=== PATIENT | male | born 1995 | race Caucasian/White ===

== ENCOUNTER 2018-04-30 10:30 | Emergency (ER) | payer SELFPAY ==
[2016-09-15 08:38] VITALS: Wt 81.6 kg
[2018-04-30 10:32] VITALS: BP 133/82
[2018-04-30 10:48] LABS: PLATELET COUNT, AUTOMATED 250 K/uL (150-450)
--- NOTE | 2018-04-30 11:01 | ER Report ---
History and Physical Time Seen By MD: 10:53 Hx. of Stated Complaint: PT FOUND WALKING AROUND NAKED TALKING TO TREES. PT ARRIVED IN HANDCUFFS. HPI/ROS CHIEF COMPLAINT: Psychosis HISTORY OF PRESENT ILLNESS: This is a 22-year-old male who presents to the emergency department via [facility] Department for psychosis. Apparently the patient was naked wandering around and talking to trees not violent not threatening and not suicidal. The patient states he is spreading upward of God. When I pushed the shoe and ask about any illicit drugs, he states that he has taken drugs in the past however he is not indicating that he is taken drugs recently. Patient is cooperative, smiling and interacting well. The patient was emergency detained for public nudity, talking to trees and talking to people that weren't there. They were concerned that he had a medical problem. Patient does arrive oriented to time, place, city, year. Denies fevers, chills, nausea vomiting or diarrhea. No headaches or blurred vision. No chest pain or shortness of breath. REVIEW OF SYSTEMS: Constitutional: No fever, no chills. Eyes: No discharge. ENT: No sore throat. Cardiovascular: No chest pain, no palpitations. Respiratory: No cough, no shortness of breath. Gastrointestinal: No abdominal pain, no vomiting. Genitourinary: No hematuria. Musculoskeletal: No back pain. Skin: No rashes. Neurological: No headache. Psychiatric: As above. Allergies: Coded Allergies: No Known Drug Allergies (Unverified , 04/30/18) Home Meds Discontinued Reported Medications Multivits,Th W-Fe,Other Min (THERA-M) 1 Each Tablet, 1 EACH PO QHS 09/28/16 Discontinued Scripts Oxycodone Hcl/Acetaminophen (PERCOCET 5-325 MG TABLET) 1 Each Tablet, 1 EACH PO Q4-6H Y for PAIN, #20 Prov:FADY AQUINO DO 04/27/17 Past Medical/Surgical History The patient has a past medical and surgical history of using illicit drugs mushrooms, marijuana, cocaine, cocaine gummy bears, depression, suicide attempt , questionable schizophrenia. Unable To Obtain Past Medical: Unable to Obtain/Update Reviewed Nurses Notes: Yes Hx Smoking: No Smoking Status: Never Smoker Exposure to Second Hand Smoke?: No Hx Substance Use Disorder: Yes (mushrooms/marijuana/acid/pills) Hx Alcohol Use: Yes Constitutional Vital Sign - Last 24 Hours 04/30/18 10:32 Temp 99.1 Pulse 89 Resp 16 B/P (MAP) 133/82 Pulse Ox 95 O2 Delivery Room Air Intake and Output 04/30/18 04/30/18 05/01/18 15:00 23:00 07:00 Intake Total 1000 ml Balance 1000 ml Physical Exam General Appearance: The patient is alert, has no immediate need for airway protection and no signs of toxicity. Eyes: Pupils equal and round no pallor or injection. ENT, Mouth: Mucous membranes are moist. Respiratory: There are no retractions, lungs are clear to auscultation. Cardiovascular: Regular rate and rhythm. Gastrointestinal: Abdomen is soft and non tender, no masses, bowel sounds normal. Neurological: Alert and oriented 4. Moving all extremities. Following all commands. No focal neuro deficits. Skin: Warm and dry, no rashes. Musculoskeletal: Neck is supple non tender. Extremities are nontender, nonswollen and have full range of motion. Psych: The patient is making good eye contact, smiling and interacting well when I ask him if he understands why he is here, he proceeds to tell me that were all here, that were part of the earth the universe and God. The patient denies self-harm or homicidal thoughts. But the patient also had a matter of seconds while talking about growing up in [place] and then has some tangential thoughts and began speaking about God and how he is spraying the word of God and trying to tell everyone about God. DIFFERENTIAL DIAGNOSIS: After history and physical exam differential diagnosis was considered for psychosis, schizophrenia, depression, anxiety, bipolar. Medical Decision Making Data Points Result Diagram: 04/30/18 1034 04/30/18 1034 Laboratory Hematology Test 04/30/18 10:34 04/30/18 11:45 Red Blood Count 5.04 M/uL (4.00-5.60) Mean Corpuscular Volume 88.9 fL (80.0-96.0) Mean Corpuscular Hemoglobin 31.4 pg (26.0-33.0) Mean Corpuscular Hemoglobin Concent 35.3 g/dL (32.0-36.0) Red Cell Distribution Width 13.2 % (11.5-14.5) Mean Platelet Volume 8.7 fL (7.2-11.1) Neutrophils (%) (Auto) 75.0 % (39.4-72.5) Lymphocytes (%) (Auto) 17.1 % (17.6-49.6) Monocytes (%) (Auto) 7.3 % (4.1-12.4) Eosinophils (%) (Auto) 0.3 % (0.4-6.7) Basophils (%) (Auto) 0.3 % (0.3-1.4) Nucleated RBC Relative Count (auto) 0.1 /100WBC Neutrophils # (Auto) 6.5 K/uL (2.0-7.4) Lymphocytes # (Auto) 1.5 K/uL (1.3-3.6) Monocytes # (Auto) 0.6 K/uL (0.3-1.0) Eosinophils # (Auto) 0.0 K/uL (0.0-0.5) Basophils # (Auto) 0.0 K/uL (0.0-0.1) Nucleated RBC Absolute Count (auto) 0.01 K/uL Sodium Level 140 mmol/L (137-145) Potassium Level 3.7 mmol/L (3.5-5.0) Chloride Level 104 mmol/L (98-107) Carbon Dioxide Level 22 mmol/L (22-30) Blood Urea Nitrogen 17 mg/dl (9-21) Creatinine 0.90 mg/dl (0.66-1.25) Glomerular Filtration Rate Calc > 60.0 Random Glucose 104 mg/dl (75-110) Calcium Level 9.2 mg/dl (8.4-10.2) Magnesium Level 2.1 mg/dl (1.7-2.2) Total Bilirubin 0.7 mg/dl (0.2-1.3) Aspartate Amino Transf (AST/SGOT) 28 U/L (0-35) Alanine Aminotransferase (ALT/SGPT) 23 U/L (0-56) Alkaline Phosphatase 64 U/L (0-126) Total Protein 7.9 g/dl (6.3-8.2) Albumin 4.9 g/dl (3.5-5.0) Thyroid Stimulating Hormone (TSH) 2.05 uIU/ml (0.46-4.68) Salicylates Level < 10 mg/L Salicylate Last Dose Date unk Acetaminophen Level < 10 ug/ml Serum Alcohol < 10 mg/dl Urine Color Yellow Urine Clarity Clear Urine pH 6.0 pH (4.8-9.5) Urine Specific [place] 1.014 Urine Protein Negative mg/dL (NEGATIVE) Urine Glucose (UA) Negative mg/dL (NEGATIVE) Urine Ketones Negative mg/dL (NEGATIVE) Urine Blood Negative (NEGATIVE) Urine Nitrite Negative (NEGATIVE) Urine Bilirubin Negative (NEGATIVE) Urine Urobilinogen Negative mg/dL (0.2-1.9) Urine Leukocyte Esterase Negative (NEGATIVE) Urine RBC <1 /HPF (0-2/HPF) Urine WBC <1 /HPF (0-5/HPF) Urine Squamous Epithelial Cells None /LPF (</=FEW) Urine Bacteria Negative /HPF (NONE-FEW) Urine Mucus None /HPF (NONE-FEW) Urine Opiates Screen Negative Urine Barbiturates Screen Negative Ur Tricyclic Antidepressants Screen Negative Urine Phencyclidine Screen Negative Urine Amphetamines Screen Negative Urine Benzodiazepines Screen Negative Urine Cocaine Screen Negative Urine Cannabinoids Screen Negative Chemistry Test 04/30/18 10:34 04/30/18 11:45 White Blood Count 8.6 k/uL (4.5-11.0) Red Blood Count 5.04 M/uL (4.00-5.60) Hemoglobin 15.8 g/dL (14.0-18.0) Hematocrit 44.8 % (42.0-52.0) Mean Corpuscular Volume 88.9 fL (80.0-96.0) Mean Corpuscular Hemoglobin 31.4 pg (26.0-33.0) Mean Corpuscular Hemoglobin Concent 35.3 g/dL (32.0-36.0) Red Cell Distribution Width 13.2 % (11.5-14.5) Platelet Count 250 K/uL (150-450) Mean Platelet Volume 8.7 fL (7.2-11.1) Neutrophils (%) (Auto) 75.0 % (39.4-72.5) Lymphocytes (%) (Auto) 17.1 % (17.6-49.6) Monocytes (%) (Auto) 7.3 % (4.1-12.4) Eosinophils (%) (Auto) 0.3 % (0.4-6.7) Basophils (%) (Auto) 0.3 % (0.3-1.4) Nucleated RBC Relative Count (auto) 0.1 /100WBC Neutrophils # (Auto) 6.5 K/uL (2.0-7.4) Lymphocytes # (Auto) 1.5 K/uL (1.3-3.6) Monocytes # (Auto) 0.6 K/uL (0.3-1.0) Eosinophils # (Auto) 0.0 K/uL (0.0-0.5) Basophils # (Auto) 0.0 K/uL (0.0-0.1) Nucleated RBC Absolute Count (auto) 0.01 K/uL Glomerular Filtration Rate Calc > 60.0 Calcium Level 9.2 mg/dl (8.4-10.2) Magnesium Level 2.1 mg/dl (1.7-2.2) Total Bilirubin 0.7 mg/dl (0.2-1.3) Aspartate Amino Transf (AST/SGOT) 28 U/L (0-35) Alanine Aminotransferase (ALT/SGPT) 23 U/L (0-56) Alkaline Phosphatase 64 U/L (0-126) Total Protein 7.9 g/dl (6.3-8.2) Albumin 4.9 g/dl (3.5-5.0) Thyroid Stimulating Hormone (TSH) 2.05 uIU/ml (0.46-4.68) Salicylates Level < 10 mg/L Salicylate Last Dose Date unk Acetaminophen Level < 10 ug/ml Serum Alcohol < 10 mg/dl Urine Color Yellow Urine Clarity Clear Urine pH 6.0 pH (4.8-9.5) Urine Specific [place] 1.014 Urine Protein Negative mg/dL (NEGATIVE) Urine Glucose (UA) Negative mg/dL (NEGATIVE) Urine Ketones Negative mg/dL (NEGATIVE) Urine Blood Negative (NEGATIVE) Urine Nitrite Negative (NEGATIVE) Urine Bilirubin Negative (NEGATIVE) Urine Urobilinogen Negative mg/dL (0.2-1.9) Urine Leukocyte Esterase Negative (NEGATIVE) Urine RBC <1 /HPF (0-2/HPF) Urine WBC <1 /HPF (0-5/HPF) Urine Squamous Epithelial Cells None /LPF (</=FEW) Urine Bacteria Negative /HPF (NONE-FEW) Urine Mucus None /HPF (NONE-FEW) Urine Opiates Screen Negative Urine Barbiturates Screen Negative Ur Tricyclic Antidepressants Screen Negative Urine Phencyclidine Screen Negative Urine Amphetamines Screen Negative Urine Benzodiazepines Screen Negative Urine Cocaine Screen Negative Urine Cannabinoids Screen Negative Toxicology Test 04/30/18 10:34 04/30/18 11:45 Salicylates Level < 10 mg/L Salicylate Last Dose Date unk Acetaminophen Level < 10 ug/ml Serum Alcohol < 10 mg/dl Urine Opiates Screen Negative Urine Barbiturates Screen Negative Ur Tricyclic Antidepressants Screen Negative Urine Phencyclidine Screen Negative Urine Amphetamines Screen Negative Urine Benzodiazepines Screen Negative Urine Cocaine Screen Negative Urine Cannabinoids Screen Negative Urinalysis Test 04/30/18 11:45 Urine Color Yellow Urine Clarity Clear Urine pH 6.0 pH (4.8-9.5) Urine Specific [place] 1.014 Urine Protein Negative mg/dL (NEGATIVE) Urine Glucose (UA) Negative mg/dL (NEGATIVE) Urine Ketones Negative mg/dL (NEGATIVE) Urine Blood Negative (NEGATIVE) Urine Nitrite Negative (NEGATIVE) Urine Bilirubin Negative (NEGATIVE) Urine Urobilinogen Negative mg/dL (0.2-1.9) Urine Leukocyte Esterase Negative (NEGATIVE) Urine RBC <1 /HPF (0-2/HPF) Urine WBC <1 /HPF (0-5/HPF) Urine Squamous Epithelial Cells None /LPF (</=FEW) Urine Bacteria Negative /HPF (NONE-FEW) Urine Mucus None /HPF (NONE-FEW) ED Course/Re-evaluation Clinical Indication for ER IV: IV Access ED Course The patient was admitted to room. A history and physical were obtained. Differential diagnoses were considered. An IV was started. A CBC, CMP, tox screen and psych panel were obtained. Lab studies unremarkable. Negative tox screen. I did uphold the detainment. The patient's case was discussed with Dr. Finn and he is accepted the patient into behavioral health unit for psychosis and hallucinations. The patient will be admitted. Patient remains cooperative however he did attempt to elope at one point during his stay in the emergency department he was escorted back by PD. 04/30/2018 12:22:19 pm I did speak with Dr. Finn regarding the patient's case , I ultimately decided to hold the patient's detainment as his blood work and urine are negative for marijuana or any other illicit drugs. My concern would be that the patient will be discharged from the hospital and without a formal evaluation from a psychologist he would walk in front of oncoming traffic or some other unintentional accident would happen as God is telling them what to do. Decision to Disposition Date: Apr 30, 2018 Decision to Disposition Time: 12:22 Depart Departure Latest Vital Signs Vital Signs Date Time Temp Pulse Resp B/P (MAP) Pulse Ox O2 Delivery O2 Flow Rate FiO2 04/30/18 10:32 99.1 89 16 133/82 95 Room Air Impression: Primary Impression: Hallucinations Additional Impression: Psychosis Condition: Improved Disposition: XFER TO [facility] New Scripts No Active Prescriptions or Reported Meds Problem Qualifiers Additional Impression: Psychosis Psychosis type: unspecified psychosis type Qualified Codes: F29 - Unspecified psychosis not due to a substance or known physiological condition POLI BISWAS PROGRAM ADVISOR-BC Apr 30, 2018 11:01
--- NOTE | 2018-04-30 11:12 | EKG ---
FACILITY: [facility] PATIENT NAME: NIMA ADAIR : [id number] MR: [id number] V: [id number] EXAM DATE: ORDERING PHYSICIAN: SERAFIN MCDONALD TECHNOLOGIST: SHAR Test Reason : Blood Pressure : / mmHG Vent. Rate : 070 BPM Atrial Rate : 070 BPM P-R Int : 152 ms QRS Dur : 096 ms QT Int : 392 ms P-R-T Axes : 061 037 017 degrees QTc Int : 423 ms Normal sinus rhythm with sinus arrhythmia Normal ECG When compared with ECG of 14-SEP-2016 17:57, No significant change was found Confirmed by Isai Campo ([id number]) on 05/01/2018 12:08:29 AM Referred By: RYAN Confirmed By:Isai Curtis
[2018-04-30] MEDS ORDERED: NS(*) 0.9% 1000 ML BAG 1,000 ML IV ONE (11:45)
--- NOTE | 2018-04-30 12:43 | BHS - Psychiatric Evaluation ---
ER - Title 25 MHE Evaluation Title 25 Evaluation Patient Detained By: Other (Nurse Practitioner) Referral Source: Law Enforcement Date Patient Detained: Apr 30, 2018 Time Patient Detained: 12:33 Date Correction Expires: May 03, 2018 Time Correction Expires: 12:33 Legal Status: Police Hold: Yes Legal Status: Residence: County Resident ([facility] State Resident ([place]) Assessment Data Provided By: Patient, Law Enforcement HPI/ROS: This is a 22-year-old male presents to the emergency department in the custody of the Police Department who was detained for his safety. Patient apparently was wandering around they were fluids, reviewed and talking to treat and people apparently were not there. Admit due to SI or Attempt: No Suicide Plan: No Plan Alcohol or Drugs Involved: No Mental Status Exam General Appearance: Casual, No Well Groomed, No Good Eye Contact, Cooperative, Polite, Good Interaction, Unkept, No Tearful, No Psychomotor Agitation, No Psychomotor Retardation, No Bizarre Mannerisms, No Tics, No Other Speech: Clear, No Spontaneous, No Normal Rate, No Normal Rhythm, Normal Volume , No Normal Tone, No Delayed, No Slurred, No Garbled, No Rambling, No Inappropriate, No Other Mood: Euthymic Affect: No Full and Appropriate, Calm, No Sad, No Neutral, No Flat, No Withdrawn, No Tearful, No Anxious, No Agitated, No Other Thought Process: No Organized, No Logical, No Goal Directed, Loose Associations , Flight of Ideas, No Other Thought Content: No Suicidal Ideation, No Homicidal Ideation, No Delusions, No Auditory Halllucinations, No Visual Hallucinations, No Thought Broadcasting, No Ideas of Reference, No Obsessions, No Compulsions, No Other Sensorium: No Clear, No Other Cognition: Alert & Oriented-Place, Alert & Oriented-Time, Other (Aware he is in the ED but unaware why.) Memory: Recent, Remote Insight Judgment: Fair Sleep: Normal Hallucinations: No Denies, Auditory, No Visual, No Command auditory, No Tactile , No Gustatory, No Olfactory Delusions: No Denies, No Persecutory, Grandiose, No Mind Control, No Somatic, No Hypochondriacal, No Paranoia, Magical, Religous, No Ideas of reference, No Sexual Current Risk & History Current Dangerous Risk Assessm: Ubable to Care for Self Past Dangerous Risk Assessm: Other Previous Suicide Attempt: Past - High Lethality Number of Attempts/Description unsure Previous Psychiatric Illness: Yes Previous Psychiatric Treatment: Yes Previous Treatment Description therapy Risk Assessment & Disposition Evaluated Risk Assessment: As the patient is exhibiting buddhist and grandiose thoughts and ideas about listening to daughter and spreading toward God I did uphold the patient's detainment from the police department, as I was concerned that as he was wandering around naked that was the potential for an unintentional track injury such as walking in front of cars or slipping and falling exposure to the elements. Impression: Primary Impression: Hallucinations Additional Impression: Psychosis Meets Mental Illness Req.: Yes Meets Dangerousness Req.: Yes Emergency Correction to be: Upheld Date of Decision: Apr 30, 2018 Time of Decision: 12:42 Patient is Medically Stable at: Yes Disposition: [facility] Problem Qualifiers Additional Impression: Psychosis Psychosis type: unspecified psychosis type Qualified Codes: F29 - Unspecified psychosis not due to a substance or known physiological condition POLI BISWAS SHIPPING ROOM SUPERVISOR-BC Apr 30, 2018 12:43
== END 2018-04-30 12:50 ==
LOC: ER 10:34
DX: R44.1 Visual hallucinations (principal); F16.11 Hallucinogen abuse, in remission; F14.11 Cocaine abuse, in remission
CPT/HCPCS: 80305; 80320; 80329; 81001; 83735; 84443; 85025; 93005; 96360; 99285; J7030; 82040; 82247; 82310; 82374; 82435; 82565; 82947; 84075; 84132; 84155; 84295; 84450; 84460; 84520

== ENCOUNTER 2018-04-30 12:32 | Inpatient (IN) | payer OTHER ==
[2016-09-15 08:38] VITALS: Ht 172.7 cm; Wt 81.6 kg
[~2018-04-30] VITALS: Ht 172.7 cm; Wt 81.6 kg
[2018-04-30] MEDS ORDERED: MAG HYD/AL HYD/SIMETH 30ML UDC PO PRN (13:55)
[2018-04-30 16:12] VITALS: BP 132/81
[2018-04-30 17:25] VITALS: BP 116/75
--- NOTE | 2018-04-30 18:02 | BHS - Psychiatric Evaluation ---
Title 25 Evaluation Hearing Report: 110 Date of Report: May 06, 2018 Examiner: Leatha Combs M.S., L.P.C. and Dr. Prashanth Finn MD Patient Detained By: Law Enforcement 24hr Mental Health Eval By: ABRTOLOME Vang Date Patient Detained: Apr 30, 2018 Time Patient Detained: 10:19 Date Alf Expires: May 13, 2018 Time Alf Expires: 10:19 Legal Status: Police Hold: No Legal Status: Relationship: Single Legal Status: Residence: [facility] Resident, State Resident Referral Source: Professional: Law Enforcement - Brazing Furnace Operator Assessment Data Provided By: Patient, Law Enforcement ([phone] from bank officer ), Other Source ([facility]essionals and Patient's Electronic medical record (EMR )) Chief Complaint: Patient is detained by Law Enforcement because his concerning behavior of walking in the downtown area naked and talking to trees and a spider himself put him at risk. Patient is psychotic and in need of stabilization. he has orthodox delusions that God has told him to gauge out his eye, and he requires chemical restraint here at [facility] to not continue efforts to hurt his eye. He has consistently removed his clothing when asked to stay clothed here at the hospital. He says he is naked because he is not ashamed and makes Biblical references to forbidden fruit in the [place] of [place], and shame associated with eating the fruit and gaining knowledge. Patient did not follow up with outpatient treatment after his last admission, and his family is fearful of his detachment from reality, and the potential dangers that relate. Patient cannot return home as his family members do not feel they can keep him safe. HPI/ROS: [facility] [employer], Harjinder Tamez, "As the patient is exhibiting orthodox and grandiose thoughts and ideas God I did uphold the patient's detainment from the police department, as I was concerned that as he was wandering around naked that was the potential for an unintentional traffic injury such as walking in front of cars or slipping and falling exposure to the elements." Diagnosis: Preliminary diagnosis: Schizophreniform versus bipolar disorder and versus underlying development of delusional disorder. Rule out any undetected substances. Last admission, patient admitted to taking mushrooms. Risk Formulation: The patient "evidences behavior manifested by recent acts or omissions that, due to mental illness, the patient is unable to satisfy basic needs for nourishment, essential medical care, senior living, or safety so that a substantial probability exists that , serious physical injury, serious physical debilitation, serious mental debilitation, destabilization from lack of or refusal to take prescribed psychotropic medications for a diagnosed condition or serious physical disease will imminently ensue, unless the individual receives prompt and adequate treatment for this mental illness" as evidenced by : Late last year patient was found to be barefoot in subzero weather, and appeared delusional. He was talking about spreading God's word. He reports that he took mushrooms and had an "enlightening trip", which gave him an understanding of what God had in store for him. Currently, patient again has some delusions that relate to being naked and eating fruit, and not being ashamed of his nakedness. Patient does not report engaging in current outpatient mental health support at all, and it is clear the above delusions patient experiences lead to gross neglect of his physical safety and senior living, and this could lead to serious physical injury or . Recommendations of S Team: That the patient be committed to the [facility] for further evaluation and stabilization. If placement becomes available at a less restrictive facility ([place] [facility], rehab facility, supervised living, etc) prior to admission to the [facility] this would be more therapeutic for the patient. Should this happen, we ask that a directed outpatient commitment or convalescent leave be considered upon admission to alternate placement. [facility] will follow patient during admission and after discharge. Patient should be directed to follow up with [facility] after discharge from [facility] or alternate placement. 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 Current Dangerous Risk Assess: Current Suicide Ideation (Denies this hospitalization. On a previous hospitalization patient expressed suicidal ideation with a gun to his throat because, he said, God told him to kill himself.) Current Risk Summary: Patient's risk is rated as severe because he has lost touch with reality. Patient again has some delusions that relate to being naked and eating fruit, and not being ashamed of his nakedness, even in the highly public downtown area. Patient does not report engaging in current outpatient mental health support at all, and it is clear the above delusions patient experiences lead to gross neglect of his physical safety and senior living, and this could lead to serious physical injury or . Patient cannot return home as his family members do not feel they can keep him safe. Even in a locked psychiatric unit, patient attempting to gouge out his eye and requiring chemical restraint. Past Dangerous Risk Assess: Self-Injurious Behaviors (Patient reports ingestion of mushrooms in the past, and subsequent walking barefoot in subzero weather. This hospitalization, patient attempting to pull out his eye.), Other (Patient had some commands from God to kill himself during a recent hospitalization at [facility].) [facility] - Exam Physical Exam Vital Signs Vital Signs 05/06/18 06:17 Temp 97.5 Pulse 47 Resp 15 B/P (MAP) 96/69 (78) Pulse Ox 96 O2 Delivery Room Air Vital Signs 04/30/18 16:12 Temp 98.4 Pulse 79 B/P (MAP) 132/81 (98) Pulse Ox 96 O2 Delivery Room Air Mental Status Exam General Appearance: Well Groomed, Other (Does not want to stay clothed, resorts to nakedness, unless told to put on a sheet, which he will do only briefly.) Speech: Clear Mood: Dysthmic/Depressed, Euthymic Affect: Calm Thought Content: Delusions, Ideas of Reference (Believes God gives him tests and commands, such as walking in subzero weather without shoes.) Cognition: Alert & Oriented-Person Intelligence: Average Insight Judgment: Poor Care & Behavior on Unit Treatment Team Participation: Patient is often congenial. He chooses to disrobe his clothing throughout this hospitalization. Current Medications: Upland and Risperidone Pt. Taking Meds Voluntarily: No Medication Aherence: Infrequently, patient refuses to take his medication. Behavior on Unit: Patient is consistent in his becoming unclosed against advisement to remain clothed. Another patient said this patient made verbal and inappropriate touch advances. Changes Since 109 Hearing: Patient has required chemical restraint because he is trying to hurt/remove his eye. Code Yellow: Patient required code yellow intervention because he was trying to harm himself, especially his eye. Code Yellow Description(s): Bedside wrist restraints used to prevent patient from completing self-harming behavior. Title 25 History Psychiatric History: Patient reports that he saw a therapist his senior year in 2013 while he was on probation. This was Esperanza Garnett, and he reports that he saw Maddy Hernandez a couple of times too. Denies ever being evaluated by a psychiatrist or psychiatric nurse practitioner. He denies a history of suicide attempts prior to what occurred prior to the September 09, 2016 admission. He does report a history of sometimes feeling stressed, at which time he feels hopeless. He says that this lasts for approximately a week. Family Psychiatric Hx: Patient does have a family history of Schizophrenic illness. He believes that his second cousin has Bipolar disorder, and he reports that a great uncle has Schizophrenia. He denies known substance abuse in the family other than cigarette smoking, but his last admission acknowledged using psychedelic mushrooms recreationally. Social History: Patient is from [place], [place]. He is single, never , no children. He lives with his grandmother in [place], reports that he got kicked out of his parents' house at age 19. Parents do live in [place]. They are , and he does report a good relationship with them. He graduated [employer] in 2013, reports that he took a year off and then attended [employer] for 1 year, however, he did not like it. Last year he was working at [employer], about 28 hours a week. He does report that he has 2 brothers, age 17 years and 6 years. Says he would like to go back to school and study psychology, "so I can be a counselor." Previous Detentions: Patient detained in August 2016 for similar psychosis. Prior Hospitalizations: Previous [facility] hospitalizations when patient was psychotic: 09-14-2016 to 09-28-2016 09-09-2016 to 09-13-2016 Drug & Alcohol Use: He does report that he used mushrooms in an effort to expand his consciousness last week. He reports that last use of mushrooms was 1 year prior. He does report a history of using other drugs in the past to "expand his consciousness, " such as acid, MDMA, tramadol, spice, Ambien, oxycodone, Benadryl one time, cocaine one time. He has huffed one time doing air dusters. He does have a history of marijuana use. He reports that he had been weaning himself off "using only on the full deleon, and that after the last full deleon," he reports he quit marijuana. On his previous admission to [facility] in August 2016, patient said he was using cannabis. Patient reports current tobacco use.. Age of Onset/Duration: At 18 patient explored admission with his mother to the [facility]. He was denied admission because although he was soon to turn 19, it was predicted his needs could not be served within the milieu of the [facility] without mixing risk levels inappropriately. Current Living Situation: Patient has lived with his grandmother. His grandmother and parents have been expressing an inability to keep the patient unsafe in their homes. Legal History: Patient reports that he was given an opportunity to participate in the [facility] Juvenile Diversion program for possession of marijuana his senior year in high school, and also he pulled a fire alarm at school on a dare, and received probation. He reports that he completed the [employer] program. Relevant Medical History: Patient denies any chronic medical problems, denies a history of surgery. Relevant Medications: Medications are Upland and [place] [facility] Identity & Impact: Patient has many orthodox preoccupation which cause him to be at risk, such as walking naked because he believes he has eaten the fruit of knowledge, he says. Patient Strengths: Patient is very polite and pleasant to talk with. Current Medical Data: Patient denies any chronic medical problems, denies a history of surgery. Relevant Medications: Most recently, medications were Upland and Risperidone. Patient had not been taking his medications nearly immediately after his last hospitalization. LEATHA COMBS [facility] Apr 30, 2018 17:37
[2018-04-30] MEDS: LITHIUM CARBONATE 300 MG CAP PO SCH ×2 (21:00→22:29)
[2018-04-30] MEDS: diphenhydrAMINE 25 MG CAP PO SCH ×2 (21:00→22:30)
[2018-04-30] MEDS: risperiDONE 1 MG TAB PO SCH ×2 (21:00→22:30)
[2018-05-01 06:00] VITALS: BP 108/71
[2018-05-01 08:13] VITALS: BP 104/61
[2018-05-01] MEDS: OMEGA-3 500 MG CAP PO SCH (09:00)
[2018-05-01] MEDS: FOLIC ACID 1 MG TAB PO SCH (09:00)
[2018-05-01] MEDS: CHOLECALCIFEROL 1000 UNIT TAB PO SCH (09:00)
[2018-05-01] MEDS: MULTIVITAMINS TAB PO SCH (09:00)
[2018-05-01] MEDS ORDERED: MULTIVITAMINS TAB PO SCH (09:00)
[2018-05-01] MEDS: THIAMINE HCL 100 MG TAB PO SCH (09:00)
[2018-05-01 12:38] VITALS: BP 112/63
[2018-05-01 17:00] VITALS: BP 129/83
[2018-05-01] MEDS: diphenhydrAMINE 25 MG CAP PO SCH (17:00)
[2018-05-01] MEDS: LITHIUM CARBONATE 300 MG CAP PO SCH (17:00)
[2018-05-01] MEDS: risperiDONE 1 MG TAB PO SCH (17:00)
--- NOTE | 2018-05-01 17:40 | HISTORY AND PHYSICAL ---
DATE OF ADMISSION: April 30, 2018 Patient was seen at approximately 1000 hours on the a.m. of 01 May 2018 for note concerning this dictation. PRESENTING PROBLEM/CHIEF COMPLAINT Psychotic delusional behavior. HISTORY OF PRESENT ILLNESS This is a 22-year-old male who was last on the unit in August 2016 to September 2016 under somewhat similar circumstances. Patient discharged at that time on Risperdal and lithium in hopes that he would recover from what appeared to be a substance-induced psychotic disorder. Patient had been using cannabis it is believed and hallucinogens at the time. Patient discharged from the unit, and according to family members including his grandmother, his mother, and stepfather, patient relatively quickly went off medications. Patient continued to reside with his grandmother here in the [place] area with a sporadic work history, and patient mostly recently starting to walk around nude in the community. This resulted in some minor altercations with law enforcement. Patient was placed in [facility]ci briefly where he continued to engage in nudity. Patient was discharged, again engaged in further nudity, and brought to the Emergency Room for psychotic behavior under an emergency detainment. Patient himself unable to be effectively interviewed, continues to prefer to not wear clothes, and is sequestered from general population. Patient appears to have grandiose delusions of religiosity at this time. Patient's family members do not know if patient has continued to abuse hallucinogens or marijuana at this time, but this is certainly a source of concern. Patient again not following up with mental health currently. MENTAL HEALTH HISTORY Patient has been an inpatient in [facility] here most recently from September 14, 2016, to September 28, 2016. Patient is not believed to have been following up on an outpatient basis for quite some time. Patient is not believed to have suicide attempts, although he has mentioned suicide during his past admission. FAMILY PSYCHIATRIC HISTORY Patient has an uncle notable for schizophrenia and an aunt notable for bipolar disorder. Some possible depressive episodes in the family as well. Biological father was "different" according to his bio mom, and a niece may suffer from bipolar as well. There are no suicides believed to be completed in the family history. PAST MEDICAL HISTORY Patient is believed to be in overall good health at this time and have an insignificant medical health history. ALLERGIES Patient has no known drug allergies. CURRENT MEDICATIONS He is not believed to be on any medications at this time. SOCIAL HISTORY Patient was born in [place], raised mostly in [place]. He is single, never . He has no children. Believed to be a heterosexual with no current significant other. Patient currently living with his grandmother here in town. His parents do continue to live in [place], and overall they have reported a fair relationship. Patient graduated high school in 2013. He attended [employer] for one year. 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 He has two brothers, ages 19 and 8, who are half-siblings. Patient currently not working. It is unknown if the patient continues to use substances. LEGAL HISTORY Patient having some legal history related to hallucinogens and possibly marijuana in the past. Patient having more recent history of legal concerns resulting from public nudity. SUBSTANCE USE HISTORY Patient has used mushrooms in the past. It is unknown if he is using them now. Patient reports a history of using drugs to "expand my consciousness" on past admission such as acid, MDMA, tramadol, Ambien, oxycodone, Benadryl, and cocaine. Patient has huffed air dusters in the past. He has a history of marijuana use as well with occasional cigarette smoking. Patient unable to be effectively interviewed concerning current substance use. PHYSICAL EXAMINATION Please see emergency room note. Notable for: GENERAL: Healthy-appearing, 22-year-old male in no acute medical distress, but obviously suffering from ongoing psychosis at time of emergency detainment. VITAL SIGNS: Vital signs at time of admission, temperature 99.1, pulse 89, respiratory rate 16, blood pressure 132/81, and pulse oximetry 95% on room air. LABORATORY DATA CBC unremarkable overall. CMP unremarkable. TSH 2.05. Urinalysis unremarkable. Toxicology screen negative with an undetectable serum alcohol level. MENTAL STATUS EXAMINATION GENERAL APPEARANCE, BEHAVIOR, AND ATTITUDE: This is a 22-year-old male interacting in a somewhat bizarre manner. Patient refusing to put clothes on, smiling at this provider, making fair eye contact. No periods of tearfulness. SPEECH: Largely within normal limits, noted to be not accelerated. MOOD: Unable to fully assess. AFFECT: Pleasant. THOUGHT PROCESSES: Flight of ideas may be present, although further evaluation necessary. THOUGHT CONTENT: Auditory and visual hallucinations potentially present and likely. Ideas of reference likely. Grandiose delusions present in the form of hyperreligiosity. No suicidal or homicidal ideation believed to be present currently. SENSORIUM: Did appear clear. COGNITION: Appeared alert and oriented to person, place, and time, but not to situation. MEMORY: Immediate, recent, and remote historically intact. INTELLIGENCE: Historically average. INSIGHT AND JUDGMENT: Currently severely impaired due to psychotic state. ASSESSMENT This is a 22-year-old male currently emergency detained. He has a history of polysubstance use potentially triggering a genetic predisposition to bipolar illness or schizophrenia. At this time, it is unknown if patient has been engaging in further substance use, but it is known, according to family members , that patient has had waxing and waning symptoms of illness since discharge roughly two years ago. Will continue to assess and monitor lab work and encourage medication compliance. DIAGNOSES PER DIAGNOSTIC AND STATISTICAL MANUAL OF MENTAL DISORDERS, FIFTH EDITION 1. Schizoaffective disorder, bipolar type. 2. Rule out substance use, hallucinogens and cannabis. 3. Patient having supportive family relationships overall. 4. Patient undergoing ongoing legal concerns and stressors of illness. PLAN 1. Admit to the unit. 2. Necessary precautions to be implemented. 3. Patient will participate in individual and group therapy. 4. Medications such as lithium and Risperdal will once again be administered and encouraged in this patient who seemed to respond on these medications during last admit. 6. Estimated length of stay unknown. [facility] is under consideration as family indicating that patient cannot care for himself, and they do not want him home at this time. [facility]
[2018-05-02 05:58] VITALS: BP 107/67
[2018-05-02] MEDS: LITHIUM CARBONATE 300 MG CAP PO SCH ×2 (08:32→21:00)
[2018-05-02] MEDS: THIAMINE HCL 100 MG TAB PO SCH (08:35)
[2018-05-02] MEDS: OMEGA-3 500 MG CAP PO SCH (08:35)
[2018-05-02] MEDS: CHOLECALCIFEROL 1000 UNIT TAB PO SCH (08:35)
[2018-05-02] MEDS: FOLIC ACID 1 MG TAB PO SCH (08:35)
[2018-05-02] MEDS: MULTIVITAMINS TAB PO SCH (08:35)
[2018-05-02 09:36] VITALS: BP 127/76
--- NOTE | 2018-05-02 10:43 | BHS Progress Note ---
S - Subjective Progress Notes Subjective Patient remains polite, with loose associations present. Appetite and sleep intact last PM. Patient states his mood is good, with some variability and incongruent affect at times. Patient is now compliant with medications, will continue risperdal and lithium. Will consider increase in lithium tonight. No other concerns. Will schedule hearing for 10 day extension, with likely eventual commitment to [facility] in this patient who has demonstrated an inability to care for self on an outpatient basis. Suicidal Ideation: None Homicidal Ideation: None [facility] - Objective Physical Exam Vital Signs Vital Signs Date Time Temp Pulse Resp B/P (MAP) Pulse Ox O2 Delivery O2 Flow Rate FiO2 05/02/18 09:36 98.2 105 127/76 (93) 96 Room Air 05/02/18 05:58 15 Muscle Strength and Tone: WNL Gait and Station: Steady [facility] Medications Reviewed: Side Effects, Benefits of Medication, Risks Allergies Reviewed: Yes Mental Status Exam General Appearance: Casual, Well Groomed, Cooperative, Polite, No Tearful, Psychomotor Agitation (some), Bizarre Mannerisms (affect and interaction style) , Other (avoids clothing) Speech: Clear Mood: Euthymic (some grandiosity present) Affect: Full and Appropriate (at times), Calm, No Withdrawn, No Tearful, No Anxious, No Agitated Thought Process: Loose Associations, Flight of Ideas Thought Content: No Suicidal Ideation, No Homicidal Ideation, Delusions ( grandisose religiosity ), Auditory Halllucinations (likely), No Thought Broadcasting, No Ideas of Reference, No Obsessions, No Compulsions Sensorium: Clear Cognition: Alert & Oriented-Person, Alert & Oriented-Place, Alert & Oriented- Time, No Xvtiz-Trqcndcz-Fozycmwmu Memory: Immediate, Recent, Remote Intelligence: Average Insight Judgment: Poor (extremely limited currently) [facility] Assessment and Plan Friz-yn-Ygik Encounter Date: May 02, 2018 Gdsh-fe-Higi Encounter Time: 10:30 [facility] Plan: Necessary Precautions, Individual/Group Therapy, Admin/Titrate Meds, Educate Patient Tobacco Medications: Not Appropriate Condition Multpiple Antipsychotics Used: No Problems: (1) Schizoaffective disorder, bipolar type Status: Chronic Condition 1. will continue risperdal, and lithium. 2. court hearing to be scheduled. for 10 day extension GISSEL MIRZA MD May 02, 2018 10:43
[2018-05-02] MEDS ORDERED: OLANZapine 10 MG VIAL IM ONLY ONE (20:57)
[2018-05-02] MEDS ORDERED: WATER STERILE(*) 10 ML VIAL 10 ML ONE (20:58)
[2018-05-02] MEDS ORDERED: diphenhydrAMINE 50 MG/ML VIAL ONE (20:58)
[2018-05-02] MEDS ORDERED: LORazepam 2 MG/ML VIAL ONE (20:58)
[2018-05-02] MEDS ORDERED: OLANZapine 10 MG VIAL IM ONLY PRN (21:05)
[2018-05-02] MEDS ORDERED: WATER STERILE 10 ML VIAL IM ONLY PRN (21:05)
[2018-05-02 23:09] VITALS: BP 113/64
[2018-05-03 05:30] VITALS: BP 102/62
[2018-05-03] MEDS: FOLIC ACID 1 MG TAB PO SCH (07:51)
[2018-05-03] MEDS: OMEGA-3 500 MG CAP PO SCH (07:51)
[2018-05-03] MEDS: CHOLECALCIFEROL 1000 UNIT TAB PO SCH (07:51)
[2018-05-03] MEDS: MULTIVITAMINS TAB PO SCH (07:51)
[2018-05-03] MEDS: THIAMINE HCL 100 MG TAB PO SCH (07:51)
[2018-05-03 08:58] VITALS: BP 132/77
[2018-05-03] MEDS: LITHIUM CARBONATE 300 MG CAP PO SCH ×2 (09:00→21:00)
--- NOTE | 2018-05-03 09:59 | BHS Progress Note ---
[facility] - Subjective Progress Notes Subjective Patient not verbalizing self harm intentions, but notably self harming last PM by gouging at his own eye. This resulted in chemical restraint. Patient noted to not be self harming any further. Grandiose delusional, hyper - religiosity continues. Will increase lithium to 600mg BID and encourage medication compliance. Psychosis ongoing. Suicidal Ideation: None Homicidal Ideation: None [facility] - Objective Physical Exam Vital Signs Vital Signs Date Time Temp Pulse Resp B/P (MAP) Pulse Ox O2 Delivery O2 Flow Rate FiO2 05/03/18 08:58 97.8 72 132/77 (95) 100 Room Air 05/03/18 05:30 12 Muscle Strength and Tone: WNL Gait and Station: Steady [facility] Medications Reviewed: Side Effects, Benefits of Medication, Risks Allergies Reviewed: Yes Mental Status Exam General Appearance: Casual, Well Groomed, Cooperative, Polite, No Tearful, Psychomotor Agitation (some), Bizarre Mannerisms (affect and interaction style) , Other (avoids clothing) Speech: Clear Mood: Euthymic (some grandiosity present, mixed mood symptoms ) Affect: Full and Appropriate (at times), Calm, No Withdrawn, No Tearful, No Anxious, No Agitated Thought Process: Loose Associations, Flight of Ideas Thought Content: No Suicidal Ideation, No Homicidal Ideation, Delusions ( grandisose religiosity ), Auditory Halllucinations (likely), No Thought Broadcasting, No Ideas of Reference, No Obsessions, No Compulsions Sensorium: Clear Cognition: Alert & Oriented-Person, Alert & Oriented-Place, Alert & Oriented- Time, No Smkth-Okqeubaw-Juxyzepgv Memory: Immediate, Recent, Remote Intelligence: Average Insight Judgment: Poor (extremely limited currently) [facility] Assessment and Plan Oktw-xo-Zocu Encounter Date: May 03, 2018 Twnt-yq-Ukcc Encounter Time: 09:30 [facility] Plan: Necessary Precautions, Individual/Group Therapy, Admin/Titrate Meds, Educate Patient Tobacco Medications: Not Appropriate Condition Multpiple Antipsychotics Used: No Problems: (1) Schizoaffective disorder, bipolar type Status: Chronic Condition 1. continue treatment. 2. increase lithium to 600mg PO BID GISSEL MIRZA MD May 03, 2018 09:59
[2018-05-03] MEDS: diphenhydrAMINE 25 MG CAP PO SCH (21:00)
[2018-05-03] MEDS: risperiDONE 1 MG TAB PO SCH (21:00)
[2018-05-03] MEDS ORDERED: LITHIUM CARBONATE 300 MG CAP PO SCH (21:00)
[2018-05-03 21:40] VITALS: BP 124/73
--- NOTE | 2018-05-04 00:35 | EKG ---
FACILITY: [facility] PATIENT NAME: NIMA ADAIR : [id number] MR: [id number] V: [id number] EXAM DATE: ORDERING PHYSICIAN: GISSEL MIRZA TECHNOLOGIST: SHAR Test Reason : ANTIPSYCOTIC DRUGS Blood Pressure : / mmHG Vent. Rate : 062 BPM Atrial Rate : 062 BPM P-R Int : 154 ms QRS Dur : 100 ms QT Int : 418 ms P-R-T Axes : 043 063 021 degrees QTc Int : 424 ms Normal sinus rhythm with sinus arrhythmia Normal ECG When compared with ECG of 30-APR-2018 10:52, No significant change was found Confirmed by ERINN REDD ([id number]) on 05/04/2018 6:20:01 AM Referred By: Confirmed By:ERINN REDD
[2018-05-04] MEDS: FOLIC ACID 1 MG TAB PO SCH (08:15)
[2018-05-04] MEDS: THIAMINE HCL 100 MG TAB PO SCH (08:15)
[2018-05-04] MEDS: OMEGA-3 500 MG CAP PO SCH (08:15)
[2018-05-04] MEDS: CHOLECALCIFEROL 1000 UNIT TAB PO SCH (08:15)
[2018-05-04] MEDS: MULTIVITAMINS TAB PO SCH (08:15)
[2018-05-04] MEDS: LITHIUM CARBONATE 300 MG CAP PO SCH ×2 (09:00→21:26)
[2018-05-04] MEDS: diphenhydrAMINE 50 MG/ML VIAL IVP PRN (14:24)
[2018-05-04] MEDS: LORazepam 2 MG/ML VIAL IVP PRN (14:24)
--- NOTE | 2018-05-04 15:22 | BHS Progress Note ---
[facility] - Subjective Progress Notes Subjective "God is telling me things." Patient denies self harm intentions, but having self harming behaviors last PM by gouging at his eye requiring chemical restraint. Patient noted to not be self harming any further this am. Grandiose delusional, hyper -religiosity continues. LIthium has been increased to 600mg BID and medication compliance encouraged although patient refusing medications with exception of vitamins. Psychosis ongoing. Suicidal Ideation: None Homicidal Ideation: None Suicidal Ideation: None Homicidal Ideation: None [facility] - Objective Physical Exam Vital Signs Vital Signs Date Time Temp Pulse Resp B/P (MAP) Pulse Ox O2 Delivery O2 Flow Rate FiO2 05/04/18 05:47 16 05/03/18 21:40 98.0 73 124/73 (90) 93 Room Air Muscle Strength and Tone: WNL Gait and Station: Steady (Interviewed this am while patient in bed, supine position with HOB elevated ) [facility] Medications Reviewed: Side Effects, Benefits of Medication, Risks Allergies Reviewed: Yes Mental Status Exam General Appearance: Casual, Well Groomed, Cooperative, Polite, No Tearful, Psychomotor Agitation (some), Bizarre Mannerisms (affect and interaction style) , Other (avoids clothing) Speech: Clear, Other (Delayed responses at times ) Mood: Euthymic (some grandiosity present, mixed mood symptoms ), Other (Mood highly variable) Affect: Full and Appropriate (at times), Calm, Neutral, No Withdrawn, No Tearful, No Anxious, No Agitated Thought Process: Loose Associations, Flight of Ideas Thought Content: No Suicidal Ideation, No Homicidal Ideation, Delusions ( grandisose religiosity ), Auditory Halllucinations (likely), No Thought Broadcasting, No Ideas of Reference, No Obsessions, No Compulsions Sensorium: Clear Cognition: Alert & Oriented-Person, Alert & Oriented-Place, Alert & Oriented- Time, No Iensu-Ymiaswcw-Tvbgejyek Memory: Immediate, Recent, Remote Intelligence: Average Insight Judgment: Poor (extremely limited currently) Lab Laboratory Tests 05/01/18 10:34: Free Thyroxine 1.52, Free Triiodothyronine 3.8 [facility] Assessment and Plan Djir-ku-Lnkx Encounter Date: May 04, 2018 Plqp-bu-Cngd Encounter Time: 11:15 [facility] Plan: Necessary Precautions, Individual/Group Therapy, Admin/Titrate Meds, Educate Patient Tobacco Medications: Not Appropriate Condition Multpiple Antipsychotics Used: No Problems: (1) Schizoaffective disorder, bipolar type Status: Chronic (2) Hallucinogen use with hallucinogen-induced disorder Status: Acute Condition Continue encouragement of medications Maintain precautions Likely transfer to [facility] ANKIT LEES NP May 04, 2018 15:22
[2018-05-04] MEDS: risperiDONE 1 MG TAB PO SCH (21:26)
[2018-05-04] MEDS: diphenhydrAMINE 25 MG CAP PO SCH (21:26)
[2018-05-05 05:42] VITALS: BP 109/59
[2018-05-05] MEDS: FOLIC ACID 1 MG TAB PO SCH (10:54)
[2018-05-05] MEDS: MULTIVITAMINS TAB PO SCH (10:54)
[2018-05-05] MEDS: LITHIUM CARBONATE 300 MG CAP PO SCH ×2 (10:54→21:00)
[2018-05-05] MEDS: THIAMINE HCL 100 MG TAB PO SCH (10:54)
[2018-05-05] MEDS: OMEGA-3 500 MG CAP PO SCH (10:54)
[2018-05-05] MEDS: CHOLECALCIFEROL 1000 UNIT TAB PO SCH (10:54)
[2018-05-05] MEDS ORDERED: LORazepam 1 MG TAB PO ONE (12:30)
--- NOTE | 2018-05-05 16:30 | BHS Progress Note ---
[facility] - Subjective Progress Notes Subjective "I don't make promises." Patient interviewed in 7 after moved out of [facility] due to another patient requiring that room. Patient instructed to keep clothes on, states he doesn't agree to promise anything. Patient did proceed to remove clothing and walk into general population areas then hiding under a table refusing to come out or put on clothing. With assist from several staff patient escorted to adolescent area for close monitoring. He was able to calm down without medication administration. Patient agreed to take Risperidone and [place] last pm, took all medications including [place] this am. Suicidal Ideation: Ongoing (unwilling to agree that self injurious behaviors will be discontinued ) Homicidal Ideation: None [facility] - Objective Physical Exam Vital Signs Vital Signs Date Time Temp Pulse Resp B/P (MAP) Pulse Ox O2 Delivery O2 Flow Rate FiO2 05/05/18 05:42 97.8 47 109/59 (76) 97 Room Air 05/04/18 05:47 16 Muscle Strength and Tone: WNL Gait and Station: Steady (Interviewed this am while patient in bed, supine position with HOB elevated ) [facility] Medications Reviewed: Side Effects, Benefits of Medication, Risks Allergies Reviewed: Yes Mental Status Exam General Appearance: Casual, No Well Groomed, Good Eye Contact, No Cooperative, No Polite, No Tearful, Psychomotor Agitation (some), Bizarre Mannerisms (affect and interaction style), Other (avoids clothing) Speech: Clear, Other (Delayed responses at times ) Mood: Euthymic (some grandiosity present, mixed mood symptoms ), Other (Mood highly variable) Affect: Full and Appropriate (at times), Calm, Neutral, No Withdrawn, No Tearful, No Anxious, Agitated (at times) Thought Process: Loose Associations, Flight of Ideas Thought Content: No Suicidal Ideation, No Homicidal Ideation, Delusions ( grandisose religiosity ), Auditory Halllucinations (likely), No Thought Broadcasting, No Ideas of Reference, No Obsessions, No Compulsions Sensorium: Clear Cognition: Alert & Oriented-Person, Alert & Oriented-Place, Alert & Oriented- Time, No Xptls-Nhcydvjm-[place] Memory: Immediate, Recent, Remote Intelligence: Average Insight Judgment: Poor (extremely limited currently) [facility] Assessment and Plan Kabi-yq-Mvst Encounter Date: May 05, 2018 Dqfg-ut-Vobr Encounter Time: 12:00 [facility] Plan: Necessary Precautions, Individual/Group Therapy, Admin/Titrate Meds, Educate Patient Tobacco Medications: Not Appropriate Condition Multpiple Antipsychotics Used: No Problems: (1) Schizoaffective disorder, bipolar type Status: Chronic (2) Hallucinogen use with hallucinogen-induced disorder Status: Acute Condition Treatment team 05/06/18 Ten day hearing upcoming Continue current medications and treatment Encourage compliance with medications as ordered ANKIT LEES NP May 05, 2018 16:30
[2018-05-05 18:14] VITALS: BP 138/71
[2018-05-05] MEDS: diphenhydrAMINE 25 MG CAP PO SCH (21:00)
[2018-05-05] MEDS: risperiDONE 1 MG TAB PO SCH (21:00)
[2018-05-06 06:17] VITALS: BP 96/69
[2018-05-06] MEDS: FOLIC ACID 1 MG TAB PO SCH (08:46)
[2018-05-06] MEDS: MULTIVITAMINS TAB PO SCH (08:46)
[2018-05-06] MEDS: THIAMINE HCL 100 MG TAB PO SCH (08:46)
[2018-05-06] MEDS: LITHIUM CARBONATE 300 MG CAP PO SCH ×2 (08:46→20:37)
[2018-05-06] MEDS: OMEGA-3 500 MG CAP PO SCH (08:46)
[2018-05-06] MEDS: CHOLECALCIFEROL 1000 UNIT TAB PO SCH (08:46)
--- NOTE | 2018-05-06 11:53 | BHS Progress Note ---
[facility] - Subjective Progress Notes Subjective Patient now taking medications with minimal prompting, noted to be cooperative this AM, no further engaging in self harm this AM. Will continue same medications, and encourage compliance. Suicidal Ideation: None Homicidal Ideation: None [facility] - Objective Physical Exam Vital Signs Vital Signs Date Time Temp Pulse Resp B/P (MAP) Pulse Ox O2 Delivery O2 Flow Rate FiO2 05/06/18 06:17 97.5 47 15 96/69 (78) 96 Room Air Hematology Test 05/01/18 10:34 Free Thyroxine 1.52 ng/dl (0.78-2.19) Free Triiodothyronine 3.8 pg/mL (2.4-4.2) Chemistry Test 05/01/18 10:34 Free Thyroxine 1.52 ng/dl (0.78-2.19) Free Triiodothyronine 3.8 pg/mL (2.4-4.2) Muscle Strength and Tone: WNL Gait and Station: Steady [facility] Medications Reviewed: Side Effects, Benefits of Medication, Risks Allergies Reviewed: Yes Mental Status Exam General Appearance: Casual, Good Eye Contact, Cooperative, Polite, Good Interaction, No Tearful, Psychomotor Agitation (some), Bizarre Mannerisms ( affect and interaction style), Other (avoids clothing) Speech: Clear, Other (Delayed responses at times ) Mood: Euthymic (some grandiosity present, mixed mood symptoms ), Other (Mood highly variable) Affect: Full and Appropriate (at times), Calm, Neutral, No Withdrawn, No Tearful, No Anxious, Agitated (at times) Thought Process: Loose Associations (less today), Flight of Ideas Thought Content: No Suicidal Ideation, No Homicidal Ideation, Delusions ( grandisose religiosity ), Auditory Halllucinations (likely), No Thought Broadcasting, No Ideas of Reference, No Obsessions, No Compulsions Sensorium: Clear Cognition: Alert & Oriented-Person, Alert & Oriented-Place, Alert & Oriented- Time, No Ihzaq-Oybmvxdq-Oqkaxfruh Memory: Immediate, Recent, Remote Intelligence: Average Insight Judgment: Poor (extremely limited currently) [facility] Assessment and Plan Nzaz-bo-Dbgj Encounter Date: May 06, 2018 Tuzo-ja-Afcb Encounter Time: 09:00 [facility] Plan: Necessary Precautions, Individual/Group Therapy, Admin/Titrate Meds, Educate Patient Tobacco Medications: Not Appropriate Condition Multpiple Antipsychotics Used: No Problems: (1) Schizoaffective disorder, bipolar type Status: Chronic Condition 1. continue treatment. 2. no medication changes. GISSEL MIRZA MD May 06, 2018 11:53
[2018-05-06] MEDS: diphenhydrAMINE 50 MG/ML VIAL IVP PRN (13:22)
[2018-05-06] MEDS: LORazepam 2 MG/ML VIAL IVP PRN (13:22)
[2018-05-06] MEDS: diphenhydrAMINE 25 MG CAP PO SCH (20:37)
[2018-05-06] MEDS: risperiDONE 1 MG TAB PO SCH (20:58)
[2018-05-06 21:00] VITALS: BP 110/68
[2018-05-07 06:52] VITALS: BP 92/49
[2018-05-07] MEDS: LITHIUM CARBONATE 300 MG CAP PO SCH ×2 (08:11→20:33)
[2018-05-07] MEDS: MULTIVITAMINS TAB PO SCH (08:42)
[2018-05-07] MEDS: OMEGA-3 500 MG CAP PO SCH (08:42)
[2018-05-07] MEDS: FOLIC ACID 1 MG TAB PO SCH (08:42)
[2018-05-07] MEDS: THIAMINE HCL 100 MG TAB PO SCH (08:42)
[2018-05-07] MEDS: CHOLECALCIFEROL 1000 UNIT TAB PO SCH (08:42)
--- NOTE | 2018-05-07 10:14 | BHS Progress Note ---
[facility] - Subjective Progress Notes Subjective Patient slept through the night, having required chemical restraint for threatening and engaging at gouging his eye. Patient will maintain one on one, is taking lithium, and will have level drawn in AM. No medication changes. Patient cooperative with this provider, able to calmly state he would be safe to leave seclusion area. Patient noted to report to associate school psychologist, that he needed to "gouge his eye out in order to secure entrance into the [facility] Appetite good, denies intention of suicide or homicide. Suicidal Ideation: None Homicidal Ideation: None [facility] - Objective Physical Exam Vital Signs Vital Signs Date Time Temp Pulse Resp B/P (MAP) Pulse Ox O2 Delivery O2 Flow Rate FiO2 05/07/18 06:52 97.8 48 92/49 (63) 93 Room Air 05/06/18 06:17 15 Muscle Strength and Tone: WNL Gait and Station: Steady [facility] Medications Reviewed: Side Effects, Benefits of Medication, Risks Allergies Reviewed: Yes Mental Status Exam General Appearance: Well Groomed, Cooperative, No Tearful, No Psychomotor Agitation, No Psychomotor Retardation, Other Speech: Clear, Normal Rate, No Rambling, No Inappropriate, No Other Mood: Euthymic (evidence of mixed state at times. ) Affect: Calm, No Tearful, No Anxious, Agitated (at times) Thought Process: Loose Associations (less today), Flight of Ideas Thought Content: No Suicidal Ideation, No Homicidal Ideation, Delusions, Auditory Halllucinations (commands from God to remove his own eye. ), No Visual Hallucinations, Ideas of Reference (Believes God gives him tests and commands, such as walking in subzero weather without shoes.) Sensorium: Clear Cognition: Alert & Oriented-Person, Alert & Oriented-Place, Alert & Oriented- Time, No Uzlml-Uroakgox-Kofprsgxm Memory: Immediate, Recent, Remote Intelligence: Average Insight Judgment: Poor (limied by severity of illness) [facility] Assessment and Plan Dvxg-ym-Tqqq Encounter Date: May 07, 2018 Bgtc-hi-Bsmd Encounter Time: 09:00 [facility] Plan: Necessary Precautions, Individual/Group Therapy, Admin/Titrate Meds, Educate Patient Tobacco Medications: Not Appropriate Condition Multpiple Antipsychotics Used: No Problems: (1) Schizoaffective disorder, bipolar type Status: Chronic Condition 1. continue treatment. 2. lithium level in AM. GISSEL MIRZA MD May 07, 2018 10:13
[2018-05-07 14:39] VITALS: BP 140/80
[2018-05-07] MEDS: diphenhydrAMINE 25 MG CAP PO SCH (20:34)
[2018-05-07] MEDS: risperiDONE 1 MG TAB PO SCH (20:34)
[2018-05-07 20:37] VITALS: BP 129/75
[2018-05-08 05:52] VITALS: BP 95/53
[2018-05-08 06:00] LABS: PLATELET COUNT, AUTOMATED 211 K/uL (150-450)
[2018-05-08] MEDS: LITHIUM CARBONATE 300 MG CAP PO SCH ×2 (08:40→20:43)
[2018-05-08] MEDS: MULTIVITAMINS TAB PO SCH (08:40)
[2018-05-08] MEDS: CHOLECALCIFEROL 1000 UNIT TAB PO SCH (08:41)
[2018-05-08] MEDS: FOLIC ACID 1 MG TAB PO SCH (08:41)
[2018-05-08] MEDS: OMEGA-3 500 MG CAP PO SCH (08:41)
[2018-05-08] MEDS: THIAMINE HCL 100 MG TAB PO SCH (08:41)
--- NOTE | 2018-05-08 09:35 | BHS Progress Note ---
[facility] - Subjective Progress Notes Subjective Patient able to meet with family today in treatment team room, with no evidence of self harm intention today. Patient's appetite okay, yarsanism preoccupations continue. Will use Risperdal consta tomorrow. [place] level noted to be 0.7. will continue current medications. Patient remains unpredictable, and later in the AM quickly returning to gouging at his own eye, and requiring chemical restraint. Continue monitoring close. No other concerns. Suicidal Ideation: None Homicidal Ideation: None [facility] - Objective Physical Exam Vital Signs Hematology Test 05/01/18 10:34 05/08/18 05:50 Free Thyroxine 1.52 ng/dl (0.78-2.19) Free Triiodothyronine 3.8 pg/mL (2.4-4.2) Red Blood Count 4.71 M/uL (4.00-5.60) Mean Corpuscular Volume 90.3 fL (80.0-96.0) Mean Corpuscular Hemoglobin 31.4 pg (26.0-33.0) Mean Corpuscular Hemoglobin Concent 34.8 g/dL (32.0-36.0) Red Cell Distribution Width 13.1 % (11.5-14.5) Mean Platelet Volume 8.7 fL (7.2-11.1) Neutrophils (%) (Auto) 66.0 % (39.4-72.5) Lymphocytes (%) (Auto) 22.8 % (17.6-49.6) Monocytes (%) (Auto) 8.6 % (4.1-12.4) Eosinophils (%) (Auto) 2.2 % (0.4-6.7) Basophils (%) (Auto) 0.4 % (0.3-1.4) Nucleated RBC Relative Count (auto) 0.0 /100WBC Neutrophils # (Auto) 5.5 K/uL (2.0-7.4) Lymphocytes # (Auto) 1.9 K/uL (1.3-3.6) Monocytes # (Auto) 0.7 K/uL (0.3-1.0) Eosinophils # (Auto) 0.2 K/uL (0.0-0.5) Basophils # (Auto) 0.0 K/uL (0.0-0.1) Nucleated RBC Absolute Count (auto) 0.00 K/uL Sodium Level 140 mmol/L (137-145) Potassium Level 3.8 mmol/L (3.5-5.0) Chloride Level 105 mmol/L (98-107) Carbon Dioxide Level 26 mmol/L (22-30) Blood Urea Nitrogen 14 mg/dl (9-21) Creatinine 0.90 mg/dl (0.66-1.25) Glomerular Filtration Rate Calc > 60.0 Random Glucose 101 mg/dl (75-110) Calcium Level 9.2 mg/dl (8.4-10.2) Total Bilirubin 0.2 mg/dl (0.2-1.3) Aspartate Amino Transf (AST/SGOT) 34 U/L (0-35) Alanine Aminotransferase (ALT/SGPT) 24 U/L (0-56) Alkaline Phosphatase 48 U/L (0-126) Total Protein 6.1 g/dl (6.3-8.2) Albumin 3.7 g/dl (3.5-5.0) [place] Level 0.7 mmol/L (0.6-1.2) Chemistry Test 05/01/18 10:34 05/08/18 05:50 Free Thyroxine 1.52 ng/dl (0.78-2.19) Free Triiodothyronine 3.8 pg/mL (2.4-4.2) White Blood Count 8.3 k/uL (4.5-11.0) Red Blood Count 4.71 M/uL (4.00-5.60) Hemoglobin 14.8 g/dL (14.0-18.0) Hematocrit 42.5 % (42.0-52.0) Mean Corpuscular Volume 90.3 fL (80.0-96.0) Mean Corpuscular Hemoglobin 31.4 pg (26.0-33.0) Mean Corpuscular Hemoglobin Concent 34.8 g/dL (32.0-36.0) Red Cell Distribution Width 13.1 % (11.5-14.5) Platelet Count 211 K/uL (150-450) Mean Platelet Volume 8.7 fL (7.2-11.1) Neutrophils (%) (Auto) 66.0 % (39.4-72.5) Lymphocytes (%) (Auto) 22.8 % (17.6-49.6) Monocytes (%) (Auto) 8.6 % (4.1-12.4) Eosinophils (%) (Auto) 2.2 % (0.4-6.7) Basophils (%) (Auto) 0.4 % (0.3-1.4) Nucleated RBC Relative Count (auto) 0.0 /100WBC Neutrophils # (Auto) 5.5 K/uL (2.0-7.4) Lymphocytes # (Auto) 1.9 K/uL (1.3-3.6) Monocytes # (Auto) 0.7 K/uL (0.3-1.0) Eosinophils # (Auto) 0.2 K/uL (0.0-0.5) Basophils # (Auto) 0.0 K/uL (0.0-0.1) Nucleated RBC Absolute Count (auto) 0.00 K/uL Glomerular Filtration Rate Calc > 60.0 Calcium Level 9.2 mg/dl (8.4-10.2) Total Bilirubin 0.2 mg/dl (0.2-1.3) Aspartate Amino Transf (AST/SGOT) 34 U/L (0-35) Alanine Aminotransferase (ALT/SGPT) 24 U/L (0-56) Alkaline Phosphatase 48 U/L (0-126) Total Protein 6.1 g/dl (6.3-8.2) Albumin 3.7 g/dl (3.5-5.0) [place] Level 0.7 mmol/L (0.6-1.2) Toxicology Test 05/08/18 05:50 [place] Level 0.7 mmol/L (0.6-1.2) Hematology Test 05/01/18 10:34 05/08/18 05:50 Free Thyroxine 1.52 ng/dl (0.78-2.19) Free Triiodothyronine 3.8 pg/mL (2.4-4.2) Red Blood Count 4.71 M/uL (4.00-5.60) Mean Corpuscular Volume 90.3 fL (80.0-96.0) Mean Corpuscular Hemoglobin 31.4 pg (26.0-33.0) Mean Corpuscular Hemoglobin Concent 34.8 g/dL (32.0-36.0) Red Cell Distribution Width 13.1 % (11.5-14.5) Mean Platelet Volume 8.7 fL (7.2-11.1) Neutrophils (%) (Auto) 66.0 % (39.4-72.5) Lymphocytes (%) (Auto) 22.8 % (17.6-49.6) Monocytes (%) (Auto) 8.6 % (4.1-12.4) Eosinophils (%) (Auto) 2.2 % (0.4-6.7) Basophils (%) (Auto) 0.4 % (0.3-1.4) Nucleated RBC Relative Count (auto) 0.0 /100WBC Neutrophils # (Auto) 5.5 K/uL (2.0-7.4) Lymphocytes # (Auto) 1.9 K/uL (1.3-3.6) Monocytes # (Auto) 0.7 K/uL (0.3-1.0) Eosinophils # (Auto) 0.2 K/uL (0.0-0.5) Basophils # (Auto) 0.0 K/uL (0.0-0.1) Nucleated RBC Absolute Count (auto) 0.00 K/uL Sodium Level 140 mmol/L (137-145) Potassium Level 3.8 mmol/L (3.5-5.0) Chloride Level 105 mmol/L (98-107) Carbon Dioxide Level 26 mmol/L (22-30) Blood Urea Nitrogen 14 mg/dl (9-21) Creatinine 0.90 mg/dl (0.66-1.25) Glomerular Filtration Rate Calc > 60.0 Random Glucose 101 mg/dl (75-110) Calcium Level 9.2 mg/dl (8.4-10.2) Total Bilirubin 0.2 mg/dl (0.2-1.3) Aspartate Amino Transf (AST/SGOT) 34 U/L (0-35) Alanine Aminotransferase (ALT/SGPT) 24 U/L (0-56) Alkaline Phosphatase 48 U/L (0-126) Total Protein 6.1 g/dl (6.3-8.2) Albumin 3.7 g/dl (3.5-5.0) [place] Level 0.7 mmol/L (0.6-1.2) Chemistry Test 05/01/18 10:34 05/08/18 05:50 Free Thyroxine 1.52 ng/dl (0.78-2.19) Free Triiodothyronine 3.8 pg/mL (2.4-4.2) White Blood Count 8.3 k/uL (4.5-11.0) Red Blood Count 4.71 M/uL (4.00-5.60) Hemoglobin 14.8 g/dL (14.0-18.0) Hematocrit 42.5 % (42.0-52.0) Mean Corpuscular Volume 90.3 fL (80.0-96.0) Mean Corpuscular Hemoglobin 31.4 pg (26.0-33.0) Mean Corpuscular Hemoglobin Concent 34.8 g/dL (32.0-36.0) Red Cell Distribution Width 13.1 % (11.5-14.5) Platelet Count 211 K/uL (150-450) Mean Platelet Volume 8.7 fL (7.2-11.1) Neutrophils (%) (Auto) 66.0 % (39.4-72.5) Lymphocytes (%) (Auto) 22.8 % (17.6-49.6) Monocytes (%) (Auto) 8.6 % (4.1-12.4) Eosinophils (%) (Auto) 2.2 % (0.4-6.7) Basophils (%) (Auto) 0.4 % (0.3-1.4) Nucleated RBC Relative Count (auto) 0.0 /100WBC Neutrophils # (Auto) 5.5 K/uL (2.0-7.4) Lymphocytes # (Auto) 1.9 K/uL (1.3-3.6) Monocytes # (Auto) 0.7 K/uL (0.3-1.0) Eosinophils # (Auto) 0.2 K/uL (0.0-0.5) Basophils # (Auto) 0.0 K/uL (0.0-0.1) Nucleated RBC Absolute Count (auto) 0.00 K/uL Glomerular Filtration Rate Calc > 60.0 Calcium Level 9.2 mg/dl (8.4-10.2) Total Bilirubin 0.2 mg/dl (0.2-1.3) Aspartate Amino Transf (AST/SGOT) 34 U/L (0-35) Alanine Aminotransferase (ALT/SGPT) 24 U/L (0-56) Alkaline Phosphatase 48 U/L (0-126) Total Protein 6.1 g/dl (6.3-8.2) Albumin 3.7 g/dl (3.5-5.0) [place] Level 0.7 mmol/L (0.6-1.2) Toxicology Test 05/08/18 05:50 [place] Level 0.7 mmol/L (0.6-1.2) Vital Signs Date Time Temp Pulse Resp B/P (MAP) Pulse Ox O2 Delivery O2 Flow Rate FiO2 05/08/18 05:52 97.9 72 15 95/53 (67) 94 Room Air Muscle Strength and Tone: WNL Gait and Station: Steady [facility] Medications Reviewed: Side Effects, Benefits of Medication, Risks Allergies Reviewed: Yes Mental Status Exam General Appearance: Casual, Polite, No Tearful, Psychomotor Agitation (at times regarding attempts at self harm.), No Psychomotor Retardation Speech: Clear, Normal Rate, Normal Rhythm, Normal Volume, Normal Tone Mood: Dysthmic/Depressed (appearing) Affect: Calm, Withdrawn, Agitated (when engaging in self harm) Thought Process: Loose Associations (less today), Flight of Ideas Thought Content: Delusions (religiosity), Ideas of Reference (Believes God gives him tests and commands, such as walking in subzero weather without shoes.) Sensorium: Clear Cognition: Alert & Oriented-Person, Alert & Oriented-Place, Alert & Oriented- Time, No Gklay-Scugyppl-Zzynmlrqc Memory: Immediate, Recent, Remote Intelligence: Average Insight Judgment: Poor (extremely limited ) Result Diagram: 05/08/18 0550 05/08/18 0550 [facility] Assessment and Plan Ecdo-rq-Xppr Encounter Date: May 08, 2018 Jdyv-bc-Ptxm Encounter Time: 08:45 [facility] Plan: Necessary Precautions, Individual/Group Therapy, Admin/Titrate Meds, Educate Patient Tobacco Medications: Not Appropriate Condition Multpiple Antipsychotics Used: Yes Reason For >1 Antipsychotic: risperdal to help with delusions and mood stability. thorazine as needed for acute chemical restraint. Problems: (1) Schizoaffective disorder, bipolar type Status: Chronic Condition 1. continue treatment. 2. risperdal consta tomorrow. GISSEL MIRZA MD May 08, 2018 09:35
[2018-05-08] MEDS ORDERED: LORazepam 2 MG/ML VIAL IM PRN (12:15)
[2018-05-08] MEDS ORDERED: diphenhydrAMINE 50 MG/ML VIAL IM PRN (12:15)
[2018-05-08 14:00] VITALS: BP 101/62
[2018-05-08] MEDS ORDERED: OLANZapine 10 MG VIAL IM ONLY PRN (17:10)
[2018-05-08] MEDS ORDERED: WATER STERILE 10 ML VIAL IM ONLY PRN (17:20)
[2018-05-08] MEDS: diphenhydrAMINE 25 MG CAP PO SCH (20:43)
[2018-05-09 05:51] VITALS: BP 127/84
[2018-05-09] MEDS: FOLIC ACID 1 MG TAB PO SCH (08:23)
[2018-05-09] MEDS: MULTIVITAMINS TAB PO SCH (08:23)
[2018-05-09] MEDS: CHOLECALCIFEROL 1000 UNIT TAB PO SCH (08:23)
[2018-05-09] MEDS: OMEGA-3 500 MG CAP PO SCH (08:23)
[2018-05-09] MEDS: THIAMINE HCL 100 MG TAB PO SCH (08:23)
[2018-05-09] MEDS: LITHIUM CARBONATE 300 MG CAP PO SCH ×2 (08:24→19:51)
--- NOTE | 2018-05-09 11:06 | BHS Progress Note ---
BHS - Subjective Progress Notes Subjective Patient seemingly in better spirits last evening interacting with one on one in a more positive manner overall following awakening from yet another chemical restraint secondary to self harm, from psychotically driven desire to gouge eyes out following command hallucinations to do so. Will start Risperdal consta today, and remove thorazine as a PRN to avoid interaction with lithium. Hearing tomorrow, for commitment to the [facility]. Suicidal Ideation: None Homicidal Ideation: None BHS - Objective Physical Exam Vital Signs Hematology Test 05/01/18 10:34 05/08/18 05:50 Free Thyroxine 1.52 ng/dl (0.78-2.19) Free Triiodothyronine 3.8 pg/mL (2.4-4.2) Red Blood Count 4.71 M/uL (4.00-5.60) Mean Corpuscular Volume 90.3 fL (80.0-96.0) Mean Corpuscular Hemoglobin 31.4 pg (26.0-33.0) Mean Corpuscular Hemoglobin Concent 34.8 g/dL (32.0-36.0) Red Cell Distribution Width 13.1 % (11.5-14.5) Mean Platelet Volume 8.7 fL (7.2-11.1) Neutrophils (%) (Auto) 66.0 % (39.4-72.5) Lymphocytes (%) (Auto) 22.8 % (17.6-49.6) Monocytes (%) (Auto) 8.6 % (4.1-12.4) Eosinophils (%) (Auto) 2.2 % (0.4-6.7) Basophils (%) (Auto) 0.4 % (0.3-1.4) Nucleated RBC Relative Count (auto) 0.0 /100WBC Neutrophils # (Auto) 5.5 K/uL (2.0-7.4) Lymphocytes # (Auto) 1.9 K/uL (1.3-3.6) Monocytes # (Auto) 0.7 K/uL (0.3-1.0) Eosinophils # (Auto) 0.2 K/uL (0.0-0.5) Basophils # (Auto) 0.0 K/uL (0.0-0.1) Nucleated RBC Absolute Count (auto) 0.00 K/uL Sodium Level 140 mmol/L (137-145) Potassium Level 3.8 mmol/L (3.5-5.0) Chloride Level 105 mmol/L (98-107) Carbon Dioxide Level 26 mmol/L (22-30) Blood Urea Nitrogen 14 mg/dl (9-21) Creatinine 0.90 mg/dl (0.66-1.25) Glomerular Filtration Rate Calc > 60.0 Random Glucose 101 mg/dl (75-110) Calcium Level 9.2 mg/dl (8.4-10.2) Total Bilirubin 0.2 mg/dl (0.2-1.3) Aspartate Amino Transf (AST/SGOT) 34 U/L (0-35) Alanine Aminotransferase (ALT/SGPT) 24 U/L (0-56) Alkaline Phosphatase 48 U/L (0-126) Total Protein 6.1 g/dl (6.3-8.2) Albumin 3.7 g/dl (3.5-5.0) Sylvia Level 0.7 mmol/L (0.6-1.2) Chemistry Test 05/01/18 10:34 05/08/18 05:50 Free Thyroxine 1.52 ng/dl (0.78-2.19) Free Triiodothyronine 3.8 pg/mL (2.4-4.2) White Blood Count 8.3 k/uL (4.5-11.0) Red Blood Count 4.71 M/uL (4.00-5.60) Hemoglobin 14.8 g/dL (14.0-18.0) Hematocrit 42.5 % (42.0-52.0) Mean Corpuscular Volume 90.3 fL (80.0-96.0) Mean Corpuscular Hemoglobin 31.4 pg (26.0-33.0) Mean Corpuscular Hemoglobin Concent 34.8 g/dL (32.0-36.0) Red Cell Distribution Width 13.1 % (11.5-14.5) Platelet Count 211 K/uL (150-450) Mean Platelet Volume 8.7 fL (7.2-11.1) Neutrophils (%) (Auto) 66.0 % (39.4-72.5) Lymphocytes (%) (Auto) 22.8 % (17.6-49.6) Monocytes (%) (Auto) 8.6 % (4.1-12.4) Eosinophils (%) (Auto) 2.2 % (0.4-6.7) Basophils (%) (Auto) 0.4 % (0.3-1.4) Nucleated RBC Relative Count (auto) 0.0 /100WBC Neutrophils # (Auto) 5.5 K/uL (2.0-7.4) Lymphocytes # (Auto) 1.9 K/uL (1.3-3.6) Monocytes # (Auto) 0.7 K/uL (0.3-1.0) Eosinophils # (Auto) 0.2 K/uL (0.0-0.5) Basophils # (Auto) 0.0 K/uL (0.0-0.1) Nucleated RBC Absolute Count (auto) 0.00 K/uL Glomerular Filtration Rate Calc > 60.0 Calcium Level 9.2 mg/dl (8.4-10.2) Total Bilirubin 0.2 mg/dl (0.2-1.3) Aspartate Amino Transf (AST/SGOT) 34 U/L (0-35) Alanine Aminotransferase (ALT/SGPT) 24 U/L (0-56) Alkaline Phosphatase 48 U/L (0-126) Total Protein 6.1 g/dl (6.3-8.2) Albumin 3.7 g/dl (3.5-5.0) Sylvia Level 0.7 mmol/L (0.6-1.2) Toxicology Test 05/08/18 05:50 Syl[place] Level 0.7 mmol/L (0.6-1.2) Vital Signs Date Time Temp Pulse Resp B/P (MAP) Pulse Ox O2 Delivery O2 Flow Rate FiO2 05/09/18 05:51 98.2 77 16 127/84 (98) 94 Room Air Muscle Strength and Tone: WNL Gait and Station: Steady S Medications Reviewed: Side Effects, Benefits of Medication, Risks Allergies Reviewed: Yes Mental Status Exam General Appearance: Casual, Polite, No Tearful, Psychomotor Agitation (at times regarding attempts at self harm.), No Psychomotor Retardation Speech: Clear, Normal Rate, Normal Rhythm, Normal Volume, Normal Tone Mood: Dysthmic/Depressed (appearing) Affect: Calm (variable), Withdrawn, Agitated (when engaging in self harm) Thought Process: Loose Associations (less today), Flight of Ideas Thought Content: Delusions (religiosity), Auditory Halllucinations (sporadic commands to gouge eyes out), Ideas of Reference (Believes God gives him tests and commands, such as walking in subzero weather without shoes.) Sensorium: Clear Cognition: Alert & Oriented-Person, Alert & Oriented-Place, Alert & Oriented- Time, No Fucai-Fvswrmiq-Nlcuxjizk Memory: Immediate, Recent, Remote Intelligence: Average Insight Judgment: Poor (extremely limited ) Result Diagram: 05/08/18 0550 05/08/18 0550 [facility] Assessment and Plan Gqgn-[id number] Encounter Date: May 09, 2018 Pfyq-yb-Glgi Encounter Time: 10:30 [facility] Plan: Necessary Precautions, Individual/Group Therapy, Admin/Titrate Meds, Educate Patient Tobacco Medications: Not Appropriate Condition Multpiple Antipsychotics Used: Yes Reason For >1 Antipsychotic: risperdal to help with delusions and mood stability. zyprexa as needed for acute chemical restraint. Problems: (1) Schizoaffective disorder, bipolar type Status: Chronic Condition 1. continue treatment. 2. risperdal consta today. GISSEL MIRZA MD May 09, 2018 11:06
[2018-05-09] MEDS: RISPERIDONE 37.5 MG/2 ML IM ONLY SCH (11:24)
[2018-05-09 13:55] VITALS: BP 133/75
[2018-05-09] MEDS: diphenhydrAMINE 25 MG CAP PO SCH (19:50)
[2018-05-09] MEDS: risperiDONE 1 MG TAB PO SCH ×2 (19:51→21:00)
[2018-05-09] MEDS ORDERED: risperiDONE 1 MG TAB PO ONE (21:45)
[2018-05-10 06:35] VITALS: BP 118/82
[2018-05-10 06:40] LABS: PLATELET COUNT, AUTOMATED 218 K/uL (150-450)
[2018-05-10] MEDS: FOLIC ACID 1 MG TAB PO SCH (08:43)
[2018-05-10] MEDS: LITHIUM CARBONATE 300 MG CAP PO SCH ×2 (08:43→21:16)
[2018-05-10] MEDS: OMEGA-3 500 MG CAP PO SCH (08:43)
[2018-05-10] MEDS: THIAMINE HCL 100 MG TAB PO SCH (08:44)
[2018-05-10] MEDS: MULTIVITAMINS TAB PO SCH (08:44)
[2018-05-10] MEDS: CHOLECALCIFEROL 1000 UNIT TAB PO SCH (08:44)
[2018-05-10 14:20] VITALS: BP 104/68
--- NOTE | 2018-05-10 14:29 | BHS Progress Note ---
S - Subjective Progress Notes Subjective Pt seen early this am in [facility] prior to mental health court hearing, then during hearing, and again with his family during treatment team meeting. Pt did have one episode yesterday evening where a stand-by code yellow was called- - he became angry, escalated, paranoid, yelling, talking about "being punished. " He did take his HS meds, as well as an additional dose of risperdal 2 mg ordered by me after this episode. This am he was alert, denied oversedation, did acknowledge continued voices saying "take your clothes off and run around." He reports that he is fighting the urge to do so because he knows that is " the right thing to do." He denies any urges today for autoenucleation. He still reports that voices are those of God, and that he feels he is given a mission by God. He continues with odd laughter at times, labile affect. Tolerating meds well without any evidence EPS, no tremor, denies n/v/d, denies constipation. In court he was committed to the [facility], and he handled this well, asking appropriate questions like how long he will need to be there. Family very supportive. Will increase oral risperdal to 3 mg q HS for continues psychosis and mood instability, he will need to stay on oral until steady-state approached with IM (after 4 injections). Pt needs to stay on one-to -one for continued high risk of self harm given continued psychosis and multiple sudden-onset attempts at autoenucleation. Suicidal Ideation: None Homicidal Ideation: None BHS - Objective Physical Exam Vital Signs Vital Signs 05/10/18 06:35 Temp 97.7 Pulse 98 Resp 14 B/P (MAP) 118/82 (94) Pulse Ox 94 O2 Delivery Room Air Muscle Strength and Tone: WNL Gait and Station: Steady [facility] Medications Reviewed: Side Effects, Benefits of Medication, Risks Allergies Reviewed: Yes Mental Status Exam General Appearance: Casual, Polite, No Tearful, No Psychomotor Retardation Speech: Clear, Normal Rate, Normal Rhythm, Normal Volume, Normal Tone Mood: Euthymic ("I feel OK") Affect: Calm (variable), Other (overall quite labile, last night agitated and angry, calm this am, frequent inapproptiate laughter (seems fueled by internal stimuli)) Thought Process: Other (goal directed to closed ended questions, can get pretty tangential to loose at times) Thought Content: Delusions (religiosity), Auditory Halllucinations (sporadic commands to gouge eyes out, or to disrobe), Ideas of Reference (Believes God gives him tests and commands, such as walking in subzero weather without shoes.) Sensorium: Clear Cognition: Alert & Oriented-Person, Alert & Oriented-Place, Alert & Oriented- Time, No Lxtnj-Hvuwoeud-Avbwwodkn Memory: Immediate, Recent, Remote Intelligence: Average Insight Judgment: Poor (extremely limited due to psychosis) Result Diagram: 05/10/18 0614 05/10/18 0621 [facility] Assessment and Plan Entu-el-[id number] Encounter Date: May 10, 2018 Quss-pl-Fayw Encounter Time: 07:30 [facility] Plan: Necessary Precautions, Individual/Group Therapy, Admin/Titrate Meds, Educate Patient Tobacco Medications: Not Appropriate Condition Multpiple Antipsychotics Used: Yes Reason For >1 Antipsychotic: risperdal to help with delusions and mood stability. zyprexa as needed for acute chemical restraint. Problems: (1) Schizoaffective disorder, bipolar type Status: Chronic NADYA RODRIGUEZ MD May 10, 2018 14:29
[2018-05-10 20:45] VITALS: BP 112/84
[2018-05-10] MEDS: risperiDONE 1 MG TAB PO SCH (21:17)
[2018-05-10] MEDS: diphenhydrAMINE 25 MG CAP PO SCH (21:17)
[2018-05-11 03:11] VITALS: BP 134/80
[2018-05-11] MEDS: THIAMINE HCL 100 MG TAB PO SCH (09:13)
[2018-05-11] MEDS: OMEGA-3 500 MG CAP PO SCH (09:14)
[2018-05-11] MEDS: FOLIC ACID 1 MG TAB PO SCH (09:14)
[2018-05-11] MEDS: MULTIVITAMINS TAB PO SCH (09:14)
[2018-05-11] MEDS: LITHIUM CARBONATE 300 MG CAP PO SCH ×2 (09:14→20:55)
[2018-05-11] MEDS: CHOLECALCIFEROL 1000 UNIT TAB PO SCH (09:14)
--- NOTE | 2018-05-11 14:30 | BHS Progress Note ---
S - Subjective Progress Notes Subjective Pt seen in Unit C with staff. Pt reports feeling a bit more in control of his behavior and denies any AH today. Yesterday there were no attempts at autoenucleation, and no nudity. Pt did have one moment during our talk when he brushed his eyelid with his thumb-- when I inquired he acknowledged that he did have the urge to gouge his eye out, but that he knew he should resist the urge. He is still showing clear evidence of psychosis, for instance he tried to explain that gouging his eye out was a way for him to "give people an important message..." and that he thought by brushing his eye with his thumb he could still give us that same message; the message was one that would bring divided people back together..... There was a clear disorganized thought process, with grandiose delusions and ideas of reference. Pt is tolerating medications well, he denies oversedation, denies n/v/d, denies constipation. No evidence of EPS. Sleeping and eating well. Still has bizarre laughter and labile affect. Pt needs to remain on one-to-one given continued psychosis and urges for self harm. Will continue current meds, check lithium level tomorrow, and [facility]. Suicidal Ideation: None Homicidal Ideation: None S - Objective Physical Exam Vital Signs Vital Signs 05/10/18 05/11/18 20:45 03:11 Temp 98.3 Pulse 60 Resp 20 B/P (MAP) 134/80 (98) Pulse Ox 94 O2 Delivery Room Air Muscle Strength and Tone: WNL Gait and Station: Steady [facility] Medications Reviewed: Side Effects, Benefits of Medication, Risks Allergies Reviewed: Yes Mental Status Exam General Appearance: Casual, Polite, No Tearful, No Psychomotor Retardation Speech: Clear, Normal Rate, Normal Rhythm, Normal Volume, Normal Tone Mood: Euthymic (Pt says his mood is "OK.") Affect: Calm (variable), Other (continues to be quite labile with frequent bizarre laughter, hyperthymic at times, calm at times.) Thought Process: Other (goal directed to closed ended questions, can get pretty tangential to loose at times) Thought Content: Delusions (religiosity), Auditory Halllucinations (sporadic commands to gouge eyes out, or to disrobe), Ideas of Reference (Believes God gives him tests and commands, such as walking in subzero weather without shoes.) Sensorium: Clear Cognition: Alert & Oriented-Person, Alert & Oriented-Place, Alert & Oriented- Time, No Aaonz-Glyctgfm-Nsgulivtq Memory: Immediate, Recent, Remote Intelligence: Average Insight Judgment: Poor (extremely limited due to psychosis) Result Diagram: 05/10/18 0614 05/10/18 0621 [facility] Assessment and Plan Ubiy-hs-Vakd Encounter Date: May 11, 2018 Psxu-ku-Biro Encounter Time: 10:00 [facility] Plan: Necessary Precautions, Individual/Group Therapy, Admin/Titrate Meds, Educate Patient Tobacco Medications: Not Appropriate Condition Multpiple Antipsychotics Used: Yes Reason For >1 Antipsychotic: risperdal to help with delusions and mood stability. zyprexa as needed for acute chemical restraint. Problems: (1) Schizoaffective disorder, bipolar type Status: Chronic NADYA RODRIGUEZ MD May 11, 2018 14:30
[2018-05-11 14:42] VITALS: BP 136/60
[2018-05-11] MEDS: diphenhydrAMINE 25 MG CAP PO SCH (20:56)
[2018-05-11] MEDS: risperiDONE 1 MG TAB PO SCH (20:56)
[2018-05-11 22:55] VITALS: BP 135/92
[2018-05-12] MEDS: THIAMINE HCL 100 MG TAB PO SCH (08:26)
[2018-05-12] MEDS: MULTIVITAMINS TAB PO SCH (08:26)
[2018-05-12] MEDS: LITHIUM CARBONATE 300 MG CAP PO SCH ×2 (08:26→21:10)
[2018-05-12] MEDS: CHOLECALCIFEROL 1000 UNIT TAB PO SCH (08:26)
[2018-05-12] MEDS: OMEGA-3 500 MG CAP PO SCH (08:26)
[2018-05-12] MEDS: FOLIC ACID 1 MG TAB PO SCH (08:26)
--- NOTE | 2018-05-12 11:26 | BHS Progress Note ---
[facility] - Subjective Progress Notes Subjective Pt seen in conference room with staff. Pt has had no episodes of attempting to gouge his eye and no episodes of disrobing for past two days. He does acknowledge an urge to gouge his eye out last night while he was watching TV. He says he was hearing derogatory voices and had the urge for self harm, but he resisted the urge thinking, "No I don't want to do this." He is tolerating meds well-- denies oversedation, denies n/v/d/tremor, denies muscle stiffness. Eating and sleeping well. His thought process is still somewhat disorganized at times, and he still experiences AH, also still having odd delusional thoughts , like "I can self-project myself up on the ceiling and watch myself." But overall his level of psychosis and mood lability is slightly better than yesterday. He tolerated a discussion of schizoaffective disorder signs and symptoms with reasonable level of acceptance, asking appropriate questions. Yesterday we allowed him to have eating utensils back (while still on one-to-one ), and he denies any urges for self-harm while using them. Today's lithium level (after 6 full days med compliance at 600mg BID) is 0.6. Will continue current meds at same doses, will DC one-to-one and move pt out of Unit C, but will still have him in room with camera for close monitoring, given continued evidence of psychotic thinking, delusions and auditory hallucinations. Suicidal Ideation: None Homicidal Ideation: None S - Objective Physical Exam Vital Signs Vital Signs 05/11/18 22:55 Temp 99.6 Pulse 93 Resp 16 B/P (MAP) 135/92 (106) Pulse Ox 91 O2 Delivery Room Air Muscle Strength and Tone: WNL Gait and Station: Steady [facility] Medications Reviewed: Side Effects, Benefits of Medication, Risks Allergies Reviewed: Yes Mental Status Exam General Appearance: Casual, Polite, No Tearful, No Psychomotor Retardation Speech: Clear, Normal Rate, Normal Rhythm, Normal Volume, Normal Tone Mood: Euthymic (Pt says his mood is "good.") Affect: Calm, Other (continues to be somewhat labile with occaisional bizarre laughter, hyperthymic at times, calm at times. Overall calmer than yesterday.) Thought Process: Other (goal directed to closed ended questions, can get pretty tangential to loose at times) Thought Content: Delusions (talking about ability to "project myself to the ceiling", ideas of reference ongoing), Auditory Halllucinations ( continued AH of commands to self-harm or disrobe, also derogatory voices last evening), Ideas of Reference (Spoke about how seeing a tree branch pointing to the left "told" him he should walk to the left.) Sensorium: Clear Cognition: Alert & Oriented-Person, Alert & Oriented-Place, Alert & Oriented- Time, No Vtisz-Okqskhxw-Fhfttmrom Memory: Immediate, Recent, Remote Intelligence: Average Insight Judgment: Poor (slight improvement each day, still psychosis, showing better judgement in resisting command AH) Result Diagram: 05/10/18 0614 05/10/18 0621 [facility] Assessment and Plan Lkyy-ur-Fmdj Encounter Date: May 12, 2018 Ugje-fi-Orws Encounter Time: 09:00 [facility] Plan: Necessary Precautions, Individual/Group Therapy, Admin/Titrate Meds, Educate Patient Tobacco Medications: Not Appropriate Condition Multpiple Antipsychotics Used: Yes Reason For >1 Antipsychotic: risperdal to help with delusions and mood stability. zyprexa as needed for acute chemical restraint. Problems: (1) Schizoaffective disorder, bipolar type Status: Chronic NADYA RODRIGUEZ MD May 12, 2018 11:26
[2018-05-12 13:35] VITALS: BP 120/70
[2018-05-12] MEDS: risperiDONE 1 MG TAB PO SCH (21:10)
[2018-05-12] MEDS: diphenhydrAMINE 25 MG CAP PO SCH (21:11)
[2018-05-13 06:27] VITALS: BP 108/62
[2018-05-13] MEDS: THIAMINE HCL 100 MG TAB PO SCH (07:56)
[2018-05-13] MEDS: FOLIC ACID 1 MG TAB PO SCH (07:57)
[2018-05-13] MEDS: CHOLECALCIFEROL 1000 UNIT TAB PO SCH (07:57)
[2018-05-13] MEDS: LITHIUM CARBONATE 300 MG CAP PO SCH ×2 (07:57→20:38)
[2018-05-13] MEDS: MULTIVITAMINS TAB PO SCH (07:57)
[2018-05-13] MEDS: OMEGA-3 500 MG CAP PO SCH (07:57)
--- NOTE | 2018-05-13 09:49 | BHS Progress Note ---
S - Subjective Progress Notes Subjective Patient very polite and cooperative this AM. Interacting very well with his younger brother, and his mother, as well as treatment team staff. Patient indicates an understanding of eventual transfer to [facility] [place], and is accepting of this. Patient showing full compliance with medications this AM. Patient denies any thoughts of harm to himself today, and denies any other symptoms of psychiatric concern today. Patient did not seem to be responding to internal stimuli today. Suicidal Ideation: None Homicidal Ideation: None S - Objective Physical Exam Vital Signs Vital Signs Date Time Temp Pulse Resp B/P (MAP) Pulse Ox O2 Delivery O2 Flow Rate FiO2 05/13/18 06:27 98.8 54 15 108/62 (77) 95 Room Air Hematology Test 05/01/18 10:34 05/10/18 06:14 05/10/18 06:21 05/12/18 06:53 Free Thyroxine 1.52 ng/dl (0.78-2.19) Free Triiodothyronine 3.8 pg/mL (2.4-4.2) Red Blood Count 4.87 M/uL (4.00-5.60) Mean Corpuscular Volume 90.7 fL (80.0-96.0) Mean Corpuscular Hemoglobin 31.3 pg (26.0-33.0) Mean Corpuscular Hemoglobin Concent 34.5 g/dL (32.0-36.0) Red Cell Distribution Width 13.3 % (11.5-14.5) Mean Platelet Volume 8.5 fL (7.2-11.1) Neutrophils (%) (Auto) 70.9 % (39.4-72.5) Lymphocytes (%) (Auto) 18.5 % (17.6-49.6) Monocytes (%) (Auto) 8.9 % (4.1-12.4) Eosinophils (%) (Auto) 1.5 % (0.4-6.7) Basophils (%) (Auto) 0.2 % (0.3-1.4) Nucleated RBC Relative Count (auto) 0.0 /100WBC Neutrophils # (Auto) 6.8 K/uL (2.0-7.4) Lymphocytes # (Auto) 1.8 K/uL (1.3-3.6) Monocytes # (Auto) 0.9 K/uL (0.3-1.0) Eosinophils # (Auto) 0.1 K/uL (0.0-0.5) Basophils # (Auto) 0.0 K/uL (0.0-0.1) Nucleated RBC Absolute Count (auto) 0.00 K/uL Sodium Level 140 mmol/L (137-145) Potassium Level 4.7 mmol/L (3.5-5.0) Chloride Level 101 mmol/L (98-107) Carbon Dioxide Level 29 mmol/L (22-30) Blood Urea Nitrogen 10 mg/dl (9-21) Creatinine 0.80 mg/dl (0.66-1.25) Glomerular Filtration Rate Calc > 60.0 Random Glucose 94 mg/dl (75-110) Calcium Level 9.6 mg/dl (8.4-10.2) Total Bilirubin 0.3 mg/dl (0.2-1.3) Aspartate Amino Transf (AST/SGOT) 54 U/L (0-35) Alanine Aminotransferase (ALT/SGPT) 44 U/L (0-56) Alkaline Phosphatase 48 U/L (0-126) Total Protein 6.5 g/dl (6.3-8.2) Albumin 3.8 g/dl (3.5-5.0) [place] Level 0.6 mmol/L (0.6-1.2) Chemistry Test 05/01/18 10:34 05/10/18 06:14 05/10/18 06:21 05/12/18 06:53 Free Thyroxine 1.52 ng/dl (0.78-2.19) Free Triiodothyronine 3.8 pg/mL (2.4-4.2) White Blood Count 9.5 k/uL (4.5-11.0) Red Blood Count 4.87 M/uL (4.00-5.60) Hemoglobin 15.3 g/dL (14.0-18.0) Hematocrit 44.2 % (42.0-52.0) Mean Corpuscular Volume 90.7 fL (80.0-96.0) Mean Corpuscular Hemoglobin 31.3 pg (26.0-33.0) Mean Corpuscular Hemoglobin Concent 34.5 g/dL (32.0-36.0) Red Cell Distribution Width 13.3 % (11.5-14.5) Platelet Count 218 K/uL (150-450) Mean Platelet Volume 8.5 fL (7.2-11.1) Neutrophils (%) (Auto) 70.9 % (39.4-72.5) Lymphocytes (%) (Auto) 18.5 % (17.6-49.6) Monocytes (%) (Auto) 8.9 % (4.1-12.4) Eosinophils (%) (Auto) 1.5 % (0.4-6.7) Basophils (%) (Auto) 0.2 % (0.3-1.4) Nucleated RBC Relative Count (auto) 0.0 /100WBC Neutrophils # (Auto) 6.8 K/uL (2.0-7.4) Lymphocytes # (Auto) 1.8 K/uL (1.3-3.6) Monocytes # (Auto) 0.9 K/uL (0.3-1.0) Eosinophils # (Auto) 0.1 K/uL (0.0-0.5) Basophils # (Auto) 0.0 K/uL (0.0-0.1) Nucleated RBC Absolute Count (auto) 0.00 K/uL Glomerular Filtration Rate Calc > 60.0 Calcium Level 9.6 mg/dl (8.4-10.2) Total Bilirubin 0.3 mg/dl (0.2-1.3) Aspartate Amino Transf (AST/SGOT) 54 U/L (0-35) Alanine Aminotransferase (ALT/SGPT) 44 U/L (0-56) Alkaline Phosphatase 48 U/L (0-126) Total Protein 6.5 g/dl (6.3-8.2) Albumin 3.8 g/dl (3.5-5.0) [place] Level 0.6 mmol/L (0.6-1.2) Toxicology Test 05/12/18 06:53 [place] Level 0.6 mmol/L (0.6-1.2) Muscle Strength and Tone: WNL Gait and Station: Steady [facility] Medications Reviewed: Side Effects, Benefits of Medication, Risks Allergies Reviewed: Yes Mental Status Exam General Appearance: Casual, Well Groomed, Good Eye Contact, Cooperative, Polite , Good Interaction, No Unkept, No Tearful, No Psychomotor Agitation, No Psychomotor Retardation, No Bizarre Mannerisms, No Tics Speech: Clear, Spontaneous, Normal Rate, Normal Rhythm, Normal Volume, Normal Tone, No Garbled, No Rambling Mood: Euthymic (Pt says his mood is "good.") Affect: Calm, No Withdrawn, No Tearful, No Anxious, No Agitated Thought Process: Organized, Logical, Goal Directed, Loose Associations (no evidence of, during interveiw today), No Flight of Ideas Thought Content: No Suicidal Ideation, No Homicidal Ideation, Delusions ( talking about ability to "project myself to the ceiling", ideas of reference ongoing), Auditory Halllucinations (denies today, but likely ongoing to some degree.), Ideas of Reference (appears to be resolving ) Sensorium: Clear Cognition: Alert & Oriented-Person, Alert & Oriented-Place, Alert & Oriented- Time, No Kgrwu-Mzbhjorp-Ebctrncrh (mostly) Memory: Immediate, Recent, Remote Intelligence: Average Insight Judgment: Poor (slight improvement each day, still psychosis, showing better judgement in resisting command AH) Result Diagram: 05/10/18 0614 05/10/18 0621 [facility] Assessment and Plan Uipk-kr-Zfqk Encounter Date: May 13, 2018 Svcz-kg-Cmzn Encounter Time: 08:40 [facility] Plan: Necessary Precautions, Individual/Group Therapy, Admin/Titrate Meds, Educate Patient Tobacco Medications: Not Appropriate Condition Multpiple Antipsychotics Used: Yes Reason For >1 Antipsychotic: risperdal to help with delusions and mood stability. zyprexa as needed for acute chemical restraint. Problems: (1) Schizoaffective disorder, bipolar type Status: Chronic Condition 1. continue treatment. 2. no medication changes. GISSEL MIRZA MD May 13, 2018 09:49
[2018-05-13 13:04] VITALS: BP 144/85
[2018-05-13 20:37] VITALS: BP 134/73
[2018-05-13] MEDS: diphenhydrAMINE 25 MG CAP PO SCH (20:38)
[2018-05-13] MEDS: risperiDONE 1 MG TAB PO SCH (20:39)
[2018-05-14] MEDS: FOLIC ACID 1 MG TAB PO SCH (08:20)
[2018-05-14] MEDS: CHOLECALCIFEROL 1000 UNIT TAB PO SCH (08:20)
[2018-05-14] MEDS: OMEGA-3 500 MG CAP PO SCH (08:20)
[2018-05-14] MEDS: LITHIUM CARBONATE 300 MG CAP PO SCH ×2 (08:20→20:09)
[2018-05-14] MEDS: THIAMINE HCL 100 MG TAB PO SCH (08:20)
[2018-05-14] MEDS: MULTIVITAMINS TAB PO SCH (08:20)
--- NOTE | 2018-05-14 10:51 | BHS Progress Note ---
BHS - Subjective Progress Notes Subjective Patient having some poor sleep last night according to nursing report. Patient reporting that he "slept well" to this provider. Patient noted to be somewhat somnolent this AM. Will alter nighttime medication dosing to 2000 hours to try to promote earlier sleep. Patient otherwise remains cooperative, appetite is generally good. No verbalization of thoughts of harm to self today , and patient remains free from behaviors of self harm. No other concerns today. Suicidal Ideation: None Homicidal Ideation: None S - Objective Physical Exam Vital Signs Vital Signs Date Time Temp Pulse Resp B/P (MAP) Pulse Ox O2 Delivery O2 Flow Rate FiO2 05/13/18 20:37 98.2 79 134/73 (93) 98 Room Air 05/13/18 06:27 15 Hematology Test 05/01/18 10:34 05/10/18 06:14 05/10/18 06:21 05/12/18 06:53 Free Thyroxine 1.52 ng/dl (0.78-2.19) Free Triiodothyronine 3.8 pg/mL (2.4-4.2) Red Blood Count 4.87 M/uL (4.00-5.60) Mean Corpuscular Volume 90.7 fL (80.0-96.0) Mean Corpuscular Hemoglobin 31.3 pg (26.0-33.0) Mean Corpuscular Hemoglobin Concent 34.5 g/dL (32.0-36.0) Red Cell Distribution Width 13.3 % (11.5-14.5) Mean Platelet Volume 8.5 fL (7.2-11.1) Neutrophils (%) (Auto) 70.9 % (39.4-72.5) Lymphocytes (%) (Auto) 18.5 % (17.6-49.6) Monocytes (%) (Auto) 8.9 % (4.1-12.4) Eosinophils (%) (Auto) 1.5 % (0.4-6.7) Basophils (%) (Auto) 0.2 % (0.3-1.4) Nucleated RBC Relative Count (auto) 0.0 /100WBC Neutrophils # (Auto) 6.8 K/uL (2.0-7.4) Lymphocytes # (Auto) 1.8 K/uL (1.3-3.6) Monocytes # (Auto) 0.9 K/uL (0.3-1.0) Eosinophils # (Auto) 0.1 K/uL (0.0-0.5) Basophils # (Auto) 0.0 K/uL (0.0-0.1) Nucleated RBC Absolute Count (auto) 0.00 K/uL Sodium Level 140 mmol/L (137-145) Potassium Level 4.7 mmol/L (3.5-5.0) Chloride Level 101 mmol/L (98-107) Carbon Dioxide Level 29 mmol/L (22-30) Blood Urea Nitrogen 10 mg/dl (9-21) Creatinine 0.80 mg/dl (0.66-1.25) Glomerular Filtration Rate Calc > 60.0 Random Glucose 94 mg/dl (75-110) Calcium Level 9.6 mg/dl (8.4-10.2) Total Bilirubin 0.3 mg/dl (0.2-1.3) Aspartate Amino Transf (AST/SGOT) 54 U/L (0-35) Alanine Aminotransferase (ALT/SGPT) 44 U/L (0-56) Alkaline Phosphatase 48 U/L (0-126) Total Protein 6.5 g/dl (6.3-8.2) Albumin 3.8 g/dl (3.5-5.0) [place] Level 0.6 mmol/L (0.6-1.2) Test 05/13/18 00:00 Chemistry Test 05/01/18 10:34 05/10/18 06:14 05/10/18 06:21 05/12/18 06:53 Free Thyroxine 1.52 ng/dl (0.78-2.19) Free Triiodothyronine 3.8 pg/mL (2.4-4.2) White Blood Count 9.5 k/uL (4.5-11.0) Red Blood Count 4.87 M/uL (4.00-5.60) Hemoglobin 15.3 g/dL (14.0-18.0) Hematocrit 44.2 % (42.0-52.0) Mean Corpuscular Volume 90.7 fL (80.0-96.0) Mean Corpuscular Hemoglobin 31.3 pg (26.0-33.0) Mean Corpuscular Hemoglobin Concent 34.5 g/dL (32.0-36.0) Red Cell Distribution Width 13.3 % (11.5-14.5) Platelet Count 218 K/uL (150-450) Mean Platelet Volume 8.5 fL (7.2-11.1) Neutrophils (%) (Auto) 70.9 % (39.4-72.5) Lymphocytes (%) (Auto) 18.5 % (17.6-49.6) Monocytes (%) (Auto) 8.9 % (4.1-12.4) Eosinophils (%) (Auto) 1.5 % (0.4-6.7) Basophils (%) (Auto) 0.2 % (0.3-1.4) Nucleated RBC Relative Count (auto) 0.0 /100WBC Neutrophils # (Auto) 6.8 K/uL (2.0-7.4) Lymphocytes # (Auto) 1.8 K/uL (1.3-3.6) Monocytes # (Auto) 0.9 K/uL (0.3-1.0) Eosinophils # (Auto) 0.1 K/uL (0.0-0.5) Basophils # (Auto) 0.0 K/uL (0.0-0.1) Nucleated RBC Absolute Count (auto) 0.00 K/uL Glomerular Filtration Rate Calc > 60.0 Calcium Level 9.6 mg/dl (8.4-10.2) Total Bilirubin 0.3 mg/dl (0.2-1.3) Aspartate Amino Transf (AST/SGOT) 54 U/L (0-35) Alanine Aminotransferase (ALT/SGPT) 44 U/L (0-56) Alkaline Phosphatase 48 U/L (0-126) Total Protein 6.5 g/dl (6.3-8.2) Albumin 3.8 g/dl (3.5-5.0) [place] Level 0.6 mmol/L (0.6-1.2) Test 05/13/18 00:00 Toxicology Test 05/12/18 06:53 [place] Level 0.6 mmol/L (0.6-1.2) Muscle Strength and Tone: WNL Gait and Station: Steady S Medications Reviewed: Side Effects, Benefits of Medication, Risks Allergies Reviewed: Yes Mental Status Exam General Appearance: Casual, Well Groomed, Good Eye Contact, Cooperative, Polite , Good Interaction, No Unkept, No Tearful, No Psychomotor Agitation, No Psychomotor Retardation, No Bizarre Mannerisms, No Tics Speech: Clear, Spontaneous, Normal Rate, Normal Rhythm, Normal Volume, Normal Tone, No Garbled, No Rambling Mood: Euthymic (Pt says his mood is "good.") Affect: Calm, No Withdrawn, No Tearful, No Anxious, No Agitated Thought Process: Organized, Logical, Goal Directed, Loose Associations (no evidence of, during interveiw today), No Flight of Ideas Thought Content: No Suicidal Ideation, No Homicidal Ideation, Delusions (ideas of reference ongoing), Auditory Halllucinations (denies today, but likely ongoing to some degree.), Ideas of Reference (appears to be resolving ) Sensorium: Clear Cognition: Alert & Oriented-Person, Alert & Oriented-Place, Alert & Oriented- Time, No Rkpkg-Pvpianly-Fcywdpouk (mostly) Memory: Immediate, Recent, Remote Intelligence: Average Insight Judgment: Poor (slight improvement each day, still psychosis, showing better judgement in resisting command AH) Result Diagram: 05/10/18 0614 05/10/18 0621 [facility] Assessment and Plan Gkld-[id number] Encounter Date: May 14, 2018 Xaap-he-Kykt Encounter Time: 10:00 [facility] Plan: Necessary Precautions, Individual/Group Therapy, Admin/Titrate Meds, Educate Patient Tobacco Medications: Not Appropriate Condition Multpiple Antipsychotics Used: Yes Reason For >1 Antipsychotic: risperdal to help with delusions and mood stability. zyprexa as needed for acute chemical restraint. Problems: (1) Schizoaffective disorder, bipolar type Status: Chronic Condition 1. continue treatment. 2. dose evening medications at 2000 hours. GISSEL MIRZA MD May 14, 2018 10:51
[2018-05-14 14:01] VITALS: BP 92/76
[2018-05-14] MEDS: risperiDONE 1 MG TAB PO SCH ×2 (20:09→21:00)
[2018-05-14] MEDS: diphenhydrAMINE 25 MG CAP PO SCH ×2 (20:09→21:00)
[2018-05-14 20:58] VITALS: BP 108/76
[2018-05-15 06:31] VITALS: BP 110/63
[2018-05-15] MEDS: LITHIUM CARBONATE 300 MG CAP PO SCH ×2 (08:36→20:01)
[2018-05-15] MEDS: CHOLECALCIFEROL 1000 UNIT TAB PO SCH (08:36)
[2018-05-15] MEDS: THIAMINE HCL 100 MG TAB PO SCH (08:36)
[2018-05-15] MEDS: OMEGA-3 500 MG CAP PO SCH (08:36)
[2018-05-15] MEDS: MULTIVITAMINS TAB PO SCH (08:36)
[2018-05-15] MEDS: FOLIC ACID 1 MG TAB PO SCH (08:36)
--- NOTE | 2018-05-15 09:39 | BHS Progress Note ---
BHS - Subjective Progress Notes Subjective Patient interacting very well with treatment team again this AM, as well as family present. Patient notably slept better last PM, both by his account as well as staff report. Patient denies any symptoms of psychiatric concern today, Appetite good, reports good mood. No other concerns. Suicidal Ideation: None Homicidal Ideation: None S - Objective Physical Exam Vital Signs Vital Signs Date Time Temp Pulse Resp B/P (MAP) Pulse Ox O2 Delivery O2 Flow Rate FiO2 05/15/18 06:31 98.3 59 15 110/63 (79) 95 Room Air Hematology Test 05/01/18 10:34 05/10/18 06:14 05/10/18 06:21 05/12/18 06:53 Free Thyroxine 1.52 ng/dl (0.78-2.19) Free Triiodothyronine 3.8 pg/mL (2.4-4.2) Red Blood Count 4.87 M/uL (4.00-5.60) Mean Corpuscular Volume 90.7 fL (80.0-96.0) Mean Corpuscular Hemoglobin 31.3 pg (26.0-33.0) Mean Corpuscular Hemoglobin Concent 34.5 g/dL (32.0-36.0) Red Cell Distribution Width 13.3 % (11.5-14.5) Mean Platelet Volume 8.5 fL (7.2-11.1) Neutrophils (%) (Auto) 70.9 % (39.4-72.5) Lymphocytes (%) (Auto) 18.5 % (17.6-49.6) Monocytes (%) (Auto) 8.9 % (4.1-12.4) Eosinophils (%) (Auto) 1.5 % (0.4-6.7) Basophils (%) (Auto) 0.2 % (0.3-1.4) Nucleated RBC Relative Count (auto) 0.0 /100WBC Neutrophils # (Auto) 6.8 K/uL (2.0-7.4) Lymphocytes # (Auto) 1.8 K/uL (1.3-3.6) Monocytes # (Auto) 0.9 K/uL (0.3-1.0) Eosinophils # (Auto) 0.1 K/uL (0.0-0.5) Basophils # (Auto) 0.0 K/uL (0.0-0.1) Nucleated RBC Absolute Count (auto) 0.00 K/uL Sodium Level 140 mmol/L (137-145) Potassium Level 4.7 mmol/L (3.5-5.0) Chloride Level 101 mmol/L (98-107) Carbon Dioxide Level 29 mmol/L (22-30) Blood Urea Nitrogen 10 mg/dl (9-21) Creatinine 0.80 mg/dl (0.66-1.25) Glomerular Filtration Rate Calc > 60.0 Random Glucose 94 mg/dl (75-110) Calcium Level 9.6 mg/dl (8.4-10.2) Total Bilirubin 0.3 mg/dl (0.2-1.3) Aspartate Amino Transf (AST/SGOT) 54 U/L (0-35) Alanine Aminotransferase (ALT/SGPT) 44 U/L (0-56) Alkaline Phosphatase 48 U/L (0-126) Total Protein 6.5 g/dl (6.3-8.2) Albumin 3.8 g/dl (3.5-5.0) [place] Level 0.6 mmol/L (0.6-1.2) Test 05/13/18 00:00 Chemistry Test 05/01/18 10:34 05/10/18 06:14 05/10/18 06:21 05/12/18 06:53 Free Thyroxine 1.52 ng/dl (0.78-2.19) Free Triiodothyronine 3.8 pg/mL (2.4-4.2) White Blood Count 9.5 k/uL (4.5-11.0) Red Blood Count 4.87 M/uL (4.00-5.60) Hemoglobin 15.3 g/dL (14.0-18.0) Hematocrit 44.2 % (42.0-52.0) Mean Corpuscular Volume 90.7 fL (80.0-96.0) Mean Corpuscular Hemoglobin 31.3 pg (26.0-33.0) Mean Corpuscular Hemoglobin Concent 34.5 g/dL (32.0-36.0) Red Cell Distribution Width 13.3 % (11.5-14.5) Platelet Count 218 K/uL (150-450) Mean Platelet Volume 8.5 fL (7.2-11.1) Neutrophils (%) (Auto) 70.9 % (39.4-72.5) Lymphocytes (%) (Auto) 18.5 % (17.6-49.6) Monocytes (%) (Auto) 8.9 % (4.1-12.4) Eosinophils (%) (Auto) 1.5 % (0.4-6.7) Basophils (%) (Auto) 0.2 % (0.3-1.4) Nucleated RBC Relative Count (auto) 0.0 /100WBC Neutrophils # (Auto) 6.8 K/uL (2.0-7.4) Lymphocytes # (Auto) 1.8 K/uL (1.3-3.6) Monocytes # (Auto) 0.9 K/uL (0.3-1.0) Eosinophils # (Auto) 0.1 K/uL (0.0-0.5) Basophils # (Auto) 0.0 K/uL (0.0-0.1) Nucleated RBC Absolute Count (auto) 0.00 K/uL Glomerular Filtration Rate Calc > 60.0 Calcium Level 9.6 mg/dl (8.4-10.2) Total Bilirubin 0.3 mg/dl (0.2-1.3) Aspartate Amino Transf (AST/SGOT) 54 U/L (0-35) Alanine Aminotransferase (ALT/SGPT) 44 U/L (0-56) Alkaline Phosphatase 48 U/L (0-126) Total Protein 6.5 g/dl (6.3-8.2) Albumin 3.8 g/dl (3.5-5.0) [place] Level 0.6 mmol/L (0.6-1.2) Test 05/13/18 00:00 Toxicology Test 05/12/18 06:53 [place] Level 0.6 mmol/L (0.6-1.2) Muscle Strength and Tone: WNL Gait and Station: Steady S Medications Reviewed: Side Effects, Benefits of Medication, Risks Allergies Reviewed: Yes Mental Status Exam General Appearance: Casual, Well Groomed, Good Eye Contact, Cooperative, Polite, Good Interaction; No Unkept, No Tearful, No Psychomotor Agitation, No Psychomotor Retardation, No Bizarre Mannerisms, No Tics Speech: Clear, Spontaneous, Normal Rate, Normal Rhythm, Normal Volume, Normal Tone; No Garbled, No Rambling Mood: Euthymic (Pt says his mood is "good.") Affect: Calm; No Withdrawn, No Tearful, No Anxious, No Agitated Thought Process: Organized, Logical, Goal Directed, Loose Associations (no evidence of, during interveiw today); No Flight of Ideas Thought Content: No Suicidal Ideation, No Homicidal Ideation; Delusions (ideas of reference likely ongoing), Auditory Halllucinations (denies today, but likely ongoing to some degree.), Ideas of Reference (appears to be resolving ) Sensorium: Clear Cognition: Alert & Oriented-Person, Alert & Oriented-Place, Alert & Oriented- Time; No Mqaru-Qpuctlfu-Rgfbrbcbc (mostly) Memory: Immediate, Recent, Remote Intelligence: Average Insight Judgment: Poor (slight improvement each day) [facility] Assessment and Plan Ozpv-[id number] Encounter Date: May 15, 2018 Xgyc-ak-Gukv Encounter Time: 09:00 [facility] Plan: Necessary Precautions, Individual/Group Therapy, Admin/Titrate Meds, Educate Patient Tobacco Medications: Not Appropriate Condition Multpiple Antipsychotics Used: Yes Reason For >1 Antipsychotic: risperdal to help with delusions and mood stability. zyprexa as needed for acute chemical restraint. Problems: (1) Schizoaffective disorder, bipolar type Status: Chronic Condition 1. continue treatment. 2. no medication changes. GISSEL MIRZA MD May 15, 2018 09:39
[2018-05-15 12:35] VITALS: BP 114/66
[2018-05-15] MEDS: risperiDONE 1 MG TAB PO SCH (20:00)
[2018-05-15] MEDS: diphenhydrAMINE 25 MG CAP PO SCH (20:00)
[2018-05-16 03:29] VITALS: BP 116/87
[2018-05-16 08:30] VITALS: BP 117/65
[2018-05-16] MEDS: OMEGA-3 500 MG CAP PO SCH (08:43)
[2018-05-16] MEDS: LITHIUM CARBONATE 300 MG CAP PO SCH ×2 (08:44→20:13)
[2018-05-16] MEDS: CHOLECALCIFEROL 1000 UNIT TAB PO SCH (08:44)
[2018-05-16] MEDS: THIAMINE HCL 100 MG TAB PO SCH (08:44)
[2018-05-16] MEDS: MULTIVITAMINS TAB PO SCH (08:44)
[2018-05-16] MEDS: FOLIC ACID 1 MG TAB PO SCH (08:44)
--- NOTE | 2018-05-16 13:24 | BHS Progress Note ---
[facility] - Subjective Progress Notes Subjective Patient stating he did not want breakfast or lunch today, because he was waiting for his dinner alone in order to celebrate his birthday. Patient continues to do well, some question as to whether patient cheeked medications last night, will have lithium level in AM. Patient is noted to have slept well last PM. Will continue treatment, no other concerns. Patient denies any constipation concerns. Able to go for walk with staff today, without any difficulty. Suicidal Ideation: None Homicidal Ideation: None [facility] - Objective Physical Exam Vital Signs 1. continue treatment. 2. lithium level in AM, and CMP. Muscle Strength and Tone: WNL Gait and Station: Steady [facility] Medications Reviewed: Side Effects, Benefits of Medication, Risks Allergies Reviewed: Yes Mental Status Exam General Appearance: Casual, Well Groomed, Good Eye Contact, Cooperative, Polite, Good Interaction; No Unkept, No Tearful, No Psychomotor Agitation, No Psychomotor Retardation, No Bizarre Mannerisms, No Tics Speech: Clear, Spontaneous, Normal Rate, Normal Rhythm, Normal Volume, Normal Tone; No Garbled, No Rambling Mood: Euthymic (Pt says his mood is "good.") Affect: Calm; No Withdrawn, No Tearful, No Anxious, No Agitated Thought Process: Organized, Logical, Goal Directed, Loose Associations (no evidence of, during interveiw today); No Flight of Ideas Thought Content: No Suicidal Ideation, No Homicidal Ideation; Delusions (ideas of reference likely ongoing), Auditory Halllucinations (denies today, but likely ongoing to some degree.), Ideas of Reference (appears to be resolving ) Sensorium: Clear Cognition: Alert & Oriented-Person, Alert & Oriented-Place, Alert & Oriented- Time; No [place]-Weroavnh-Vqigolkya (mostly) Memory: Immediate, Recent, Remote Intelligence: Average Insight Judgment: Poor (slight improvement each day) [facility] Assessment and Plan Sedx-qy-Ihci Encounter Date: May 16, 2018 Xosj-qc-Ytci Encounter Time: 12:00 [facility] Plan: Necessary Precautions, Individual/Group Therapy, Admin/Titrate Meds, Educate Patient Tobacco Medications: Not Appropriate Condition Multpiple Antipsychotics Used: Yes Reason For >1 Antipsychotic: risperdal to help with delusions and mood stability. zyprexa as needed for acute chemical restraint. Problems: (1) Schizoaffective disorder, bipolar type Status: Chronic Condition 1. continue treatment. 2. labs in AM. GISSEL MIRZA MD May 16, 2018 13:24
[2018-05-16] MEDS: risperiDONE 1 MG TAB PO SCH (20:14)
[2018-05-16] MEDS: diphenhydrAMINE 25 MG CAP PO SCH (20:14)
[2018-05-16 21:40] VITALS: BP 123/78
[2018-05-16 23:08] VITALS: BP 123/96
[2018-05-17] MEDS: LITHIUM CARBONATE 300 MG CAP PO SCH ×2 (08:16→21:01)
[2018-05-17] MEDS: OMEGA-3 500 MG CAP PO SCH (08:16)
[2018-05-17] MEDS: FOLIC ACID 1 MG TAB PO SCH (08:16)
[2018-05-17] MEDS: MULTIVITAMINS TAB PO SCH (08:16)
[2018-05-17] MEDS: CHOLECALCIFEROL 1000 UNIT TAB PO SCH (08:16)
[2018-05-17] MEDS: THIAMINE HCL 100 MG TAB PO SCH (08:16)
--- NOTE | 2018-05-17 11:08 | BHS Progress Note ---
[facility] - Subjective Progress Notes Subjective Patient interacting very well with family and staff this AM. Denies any symptoms of psychiatric concern. Patient indicates an understanding of process of likely going to the [facility] prior to long term. patient indicates that he preferrs to fast from time to time, and denies any constipation. No other concerns today, will continue same medications. Suicidal Ideation: None Homicidal Ideation: None S - Objective Physical Exam Vital Signs Hematology Test 05/01/18 10:34 05/10/18 06:14 05/13/18 00:00 05/17/18 06:08 Free Thyroxine 1.52 ng/dl (0.78-2.19) Free Triiodothyronine 3.8 pg/mL (2.4-4.2) Red Blood Count 4.87 M/uL (4.00-5.60) Mean Corpuscular Volume 90.7 fL (80.0-96.0) Mean Corpuscular Hemoglobin 31.3 pg (26.0-33.0) Mean Corpuscular Hemoglobin Concent 34.5 g/dL (32.0-36.0) Red Cell Distribution Width 13.3 % (11.5-14.5) Mean Platelet Volume 8.5 fL (7.2-11.1) Neutrophils (%) (Auto) 70.9 % (39.4-72.5) Lymphocytes (%) (Auto) 18.5 % (17.6-49.6) Monocytes (%) (Auto) 8.9 % (4.1-12.4) Eosinophils (%) (Auto) 1.5 % (0.4-6.7) Basophils (%) (Auto) 0.2 % (0.3-1.4) Nucleated RBC Relative Count (auto) 0.0 /100WBC Neutrophils # (Auto) 6.8 K/uL (2.0-7.4) Lymphocytes # (Auto) 1.8 K/uL (1.3-3.6) Monocytes # (Auto) 0.9 K/uL (0.3-1.0) Eosinophils # (Auto) 0.1 K/uL (0.0-0.5) Basophils # (Auto) 0.0 K/uL (0.0-0.1) Nucleated RBC Absolute Count (auto) 0.00 K/uL Tuberculin Skin Test 0 mm Sodium Level 141 mmol/L (137-145) Potassium Level 4.4 mmol/L (3.5-5.0) Chlor[place] Level 103 mmol/L (98-107) Carbon Dioxide Level 26 mmol/L (22-30) Blood Urea Nitrogen 17 mg/dl (9-21) Creatinine 0.90 mg/dl (0.66-1.25) Glomerular Filtration Rate Calc > 60.0 Random Glucose 88 mg/dl (75-110) Calcium Level 9.3 mg/dl (8.4-10.2) Total Bilirubin 0.4 mg/dl (0.2-1.3) Aspartate Amino Transf (AST/SGOT) 37 U/L (0-35) Alanine Aminotransferase (ALT/SGPT) 73 U/L (0-56) Alkaline Phosphatase 49 U/L (0-126) Total Protein 6.6 g/dl (6.3-8.2) Albumin 4.0 g/dl (3.5-5.0) [place] Level 0.7 mmol/L (0.6-1.2) Chemistry Test 05/01/18 10:34 05/10/18 06:14 05/13/18 00:00 05/17/18 06:08 Free Thyroxine 1.52 ng/dl (0.78-2.19) Free Triiodothyronine 3.8 pg/mL (2.4-4.2) White Blood Count 9.5 k/uL (4.5-11.0) Red Blood Count 4.87 M/uL (4.00-5.60) Hemoglobin 15.3 g/dL (14.0-18.0) Hematocrit 44.2 % (42.0-52.0) Mean Corpuscular Volume 90.7 fL (80.0-96.0) Mean Corpuscular Hemoglobin 31.3 pg (26.0-33.0) Mean Corpuscular Hemoglobin Concent 34.5 g/dL (32.0-36.0) Red Cell Distribution Width 13.3 % (11.5-14.5) Platelet Count 218 K/uL (150-450) Mean Platelet Volume 8.5 fL (7.2-11.1) Neutrophils (%) (Auto) 70.9 % (39.4-72.5) Lymphocytes (%) (Auto) 18.5 % (17.6-49.6) Monocytes (%) (Auto) 8.9 % (4.1-12.4) Eosinophils (%) (Auto) 1.5 % (0.4-6.7) Basophils (%) (Auto) 0.2 % (0.3-1.4) Nucleated RBC Relative Count (auto) 0.0 /100WBC Neutrophils # (Auto) 6.8 K/uL (2.0-7.4) Lymphocytes # (Auto) 1.8 K/uL (1.3-3.6) Monocytes # (Auto) 0.9 K/uL (0.3-1.0) Eosinophils # (Auto) 0.1 K/uL (0.0-0.5) Basophils # (Auto) 0.0 K/uL (0.0-0.1) Nucleated RBC Absolute Count (auto) 0.00 K/uL Tuberculin Skin Test 0 mm Glomerular Filtration Rate Calc > 60.0 Cal[place] Level 9.3 mg/dl (8.4-10.2) Total Bilirubin 0.4 mg/dl (0.2-1.3) Aspartate Amino Transf (AST/SGOT) 37 U/L (0-35) Alanine Aminotransferase (ALT/SGPT) 73 U/L (0-56) Alkaline Phosphatase 49 U/L (0-126) Total Protein 6.6 g/dl (6.3-8.2) Albumin 4.0 g/dl (3.5-5.0) [place] Level 0.7 mmol/L (0.6-1.2) Toxicology Test 05/17/18 06:08 [place] Level 0.7 mmol/L (0.6-1.2) Vital Signs Date Time Temp Pulse Resp B/P (MAP) Pulse Ox O2 Delivery O2 Flow Rate FiO2 05/16/18 23:08 98.3 83 123/96 (105) 96 Room Air 05/15/18 06:31 15 Muscle Strength and Tone: WNL Gait and Station: Steady [facility] Medications Reviewed: Side Effects, Benefits of Medication, Risks Allergies Reviewed: Yes Mental Status Exam General Appearance: Casual, Well Groomed, Good Eye Contact, Cooperative, Polite, Good Interaction; No Unkept, No Tearful, No Psychomotor Agitation, No Psychomotor Retardation, No Bizarre Mannerisms, No Tics Speech: Clear, Spontaneous, Normal Rate, Normal Rhythm, Normal Volume, Normal Tone; No Garbled, No Rambling Mood: Euthymic (Pt says his mood is "good.") Affect: Calm; No Withdrawn, No Tearful, No Anxious, No Agitated Thought Process: Organized, Logical, Goal Directed, Loose Associations (no evidence of, during interveiw today); No Flight of Ideas Thought Content: No Suicidal Ideation, No Homicidal Ideation; Delusions (ideas of reference likely ongoing), Auditory Halllucinations (denies today, but likely ongoing to some degree.), Ideas of Reference (appears to be resolving ) Sensorium: Clear Cognition: Alert & Oriented-Person, Alert & Oriented-Place, Alert & Oriented- Time, Mtzwp-Xpgihyfu-Sendbnkhd Memory: Immediate, Recent, Remote Intelligence: Average Insight Judgment: Poor (slight improvement each day) Result Diagram: 05/17/18 0608 [facility] Assessment and Plan Ibzb-wv-Gloy Encounter Date: May 17, 2018 Bcbj-pi-Ydin Encounter Time: 08:40 [facility] Plan: Necessary Precautions, Individual/Group Therapy, Admin/Titrate Meds, Educate Patient Tobacco Medications: Not Appropriate Condition Multpiple Antipsychotics Used: Yes Reason For >1 Antipsychotic: risperdal to help with delusions and mood stability. zyprexa as needed for acute chemical restraint. Problems: (1) Schizoaffective disorder, bipolar type Status: Chronic Condition 1. continue treatment. 2. continue same medications. GISSEL MIRZA MD May 17, 2018 11:08
[2018-05-17 13:05] VITALS: BP 116/72
[2018-05-17 19:33] VITALS: BP 127/78
[2018-05-17] MEDS: risperiDONE 1 MG TAB PO SCH (21:01)
[2018-05-17] MEDS: diphenhydrAMINE 25 MG CAP PO SCH (21:01)
[2018-05-18 06:14] VITALS: BP 106/56
[2018-05-18] MEDS: FOLIC ACID 1 MG TAB PO SCH (08:29)
[2018-05-18] MEDS: THIAMINE HCL 100 MG TAB PO SCH (08:29)
[2018-05-18] MEDS: OMEGA-3 500 MG CAP PO SCH (08:29)
[2018-05-18] MEDS: MULTIVITAMINS TAB PO SCH (08:29)
[2018-05-18] MEDS: LITHIUM CARBONATE 300 MG CAP PO SCH ×2 (08:29→20:27)
[2018-05-18] MEDS: CHOLECALCIFEROL 1000 UNIT TAB PO SCH (08:29)
--- NOTE | 2018-05-18 09:21 | BHS Progress Note ---
[facility] - Subjective Progress Notes Subjective "I've been doing really well." Denies depression, anxiety or anger Sleep and appetite sufficient Denies urge for self harm, SI/HI Suicidal Ideation: None Homicidal Ideation: None [facility] - Objective Physical Exam Deferred Vital Signs Date Time Temp Pulse Resp B/P (MAP) Pulse Ox O2 Delivery O2 Flow Rate FiO2 05/18/18 06:14 98.4 64 106/56 (73) Room Air 05/17/18 19:33 95 05/17/18 13:05 16 Muscle Strength and Tone: WNL Gait and Station: Steady [facility] Medications Reviewed: Side Effects, Benefits of Medication, Risks Allergies Reviewed: Yes Mental Status Exam General Appearance: Casual, Well Groomed, Good Eye Contact, Cooperative, Polite, Good Interaction; No Unkept, No Tearful, No Psychomotor Agitation, No Psychomotor Retardation, No Bizarre Mannerisms, No Tics Speech: Clear, Spontaneous, Normal Rate, Normal Rhythm, Normal Volume, Normal Tone; No Garbled, No Rambling Mood: Euthymic (Pt says his mood is "good.") Affect: Calm; No Withdrawn, No Tearful, No Anxious, No Agitated Thought Process: Organized, Logical, Goal Directed, Loose Associations (no evidence of, during interveiw today); No Flight of Ideas Thought Content: No Suicidal Ideation, No Homicidal Ideation; Delusions (ideas of reference likely ongoing), Auditory Halllucinations (denies today, but likely ongoing to some degree.), Ideas of Reference (appears to be resolving ) Sensorium: Clear Cognition: Alert & Oriented-Person, Alert & Oriented-Place, Alert & Oriented- Time, Awcmj-Oqbldrtz-Oqplxaywh Memory: Immediate, Recent, Remote Intelligence: Average Insight Judgment: Poor (slight improvement each day) Result Diagram: 05/17/18 0608 [facility] Laboratory Tests 05/10/18 06:14 05/17/18 06:08 Laboratory Tests 05/01/18 10:34: Free Thyroxine 1.52, Free Triiodothyronine 3.8 05/10/18 06:14: White Blood Count 9.5, Red Blood Count 4.87, Hemoglobin 15.3, Hematocrit 44.2, Mean Corpuscular Volume 90.7, Mean Corpuscular Hemoglobin 31.3, Mean Corpuscular Hemoglobin Concent 34.5, Red Cell Distribution Width 13.3, Platelet Count 218, Mean Platelet Volume 8.5, Neutrophils (%) (Auto) 70.9, Lymphocytes (%) (Auto) 18.5, Monocytes (%) (Auto) 8.9, Eosinophils (%) (Auto) 1.5, Basophils (%) (Auto) 0.2, Nucleated RBC Relative Count (auto) 0.0, Neutrophils # (Auto) 6.8, Lymphocytes # (Auto) 1.8, Monocytes # (Auto) 0.9, Eosinophils # (Auto) 0.1, Basophils # (Auto) 0.0, Nucleated RBC Absolute Count (auto) 0.00 05/13/18 00:00: Tuberculin Skin Test 0 05/17/18 06:08: Sodium Level 141, Potassium Level 4.4, Chloride Level 103, Carbon Dioxide Level 26, Blood Urea Nitrogen 17, Creatinine 0.90, Glomerular Filtration Rate Calc > 60.0, Random Glucose 88, Calcium Level 9.3, Total Bilirubin 0.4, Aspartate Amino Transf (AST/SGOT) 37, Alanine Aminotransferase (ALT/SGPT) 73, Alkaline Phosphatase 49, Total Protein 6.6, Albumin 4.0, [place] Level 0.7 ED Medications Diphenhydramine HCl (Benadryl(*) 25 Mg Cap (Or Equiv)) 50 mg QHS@1999 Last administered on 05/17/18at 21:01; Admin Dose 50 MG; Start 05/16/18 at 20:00; Stop 06/13/18 at 19:59 [place] Carbonate ([place] Carbonate 300 Mg Cap) 600 mg BID@ Last administered on 05/18/18at 08:29; Admin Dose 600 MG; Start 05/16/18 at 20:00; Stop 06/13/18 at 20:59 Risperidone (RisperDAL 1 MG TAB (OR EQUIV)) 3 mg QHS@1999 Last administered on 05/17/18at 21:01; Admin Dose 3 MG; Start 05/16/18 at 20:00; Stop 06/13/18 at 19:59 [facility] Assessment and Plan Tsdu-oo-Baxn Encounter Date: May 18, 2018 Znyh-fz-Wfsn Encounter Time: 09:19 [facility] Plan: Necessary Precautions, Individual/Group Therapy, Admin/Titrate Meds, Educate Patient Tobacco Medications: Not Appropriate Condition Multpiple Antipsychotics Used: Yes Reason For >1 Antipsychotic: risperdal to help with delusions and mood stability. zyprexa as needed for acute chemical restraint. 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
[2018-05-18 13:10] VITALS: BP 120/60
[2018-05-18 17:30] VITALS: BP 118/58
[2018-05-18] MEDS: diphenhydrAMINE 25 MG CAP PO SCH (20:27)
[2018-05-18] MEDS: risperiDONE 1 MG TAB PO SCH (20:27)
[2018-05-19 06:28] VITALS: BP 122/53
[2018-05-19] MEDS: FOLIC ACID 1 MG TAB PO SCH (09:13)
[2018-05-19] MEDS: CHOLECALCIFEROL 1000 UNIT TAB PO SCH (09:13)
[2018-05-19] MEDS: MULTIVITAMINS TAB PO SCH (09:13)
[2018-05-19] MEDS: LITHIUM CARBONATE 300 MG CAP PO SCH ×2 (09:14→20:37)
[2018-05-19] MEDS: THIAMINE HCL 100 MG TAB PO SCH (09:14)
[2018-05-19] MEDS: OMEGA-3 500 MG CAP PO SCH (09:14)
--- NOTE | 2018-05-19 09:26 | BHS Progress Note ---
[facility] - Subjective Progress Notes Subjective "I'm doing very well." Denies depression, anxiety or anger Sleep and appetite sufficient Denies mood variation or AVH Denies urge for self harm, SI/HI Has been compliant w/[place] and Risperidone Maintain precautions, no episodes of disrobing or gauging his eyes 05/17/18 [place] level 0.7 Suicidal Ideation: None Homicidal Ideation: None [facility] - Objective Physical Exam Vital Signs Allergies Coded Allergies No Known Drug Allergies (Unverified04/30/18) Muscle Strength and Tone: WNL Gait and Station: Steady S Medications Reviewed: Side Effects, Benefits of Medication, Risks Allergies Reviewed: Yes Mental Status Exam General Appearance: Casual, Well Groomed, Good Eye Contact, Cooperative, Polite, Good Interaction; No Unkept, No Tearful, No Psychomotor Agitation, No Psychomotor Retardation, No Bizarre Mannerisms, No Tics Speech: Clear, Spontaneous, Normal Rate, Normal Rhythm, Normal Volume, Normal Tone; No Garbled, No Rambling Mood: Euthymic (Pt says his mood is "good.") Affect: Calm; No Withdrawn, No Tearful, No Anxious, No Agitated Thought Process: Organized, Logical, Goal Directed, Loose Associations (no evidence of, during interveiw today); No Flight of Ideas Thought Content: No Suicidal Ideation, No Homicidal Ideation; Delusions (ideas of reference likely ongoing), Auditory Halllucinations (denies today, but likely ongoing to some degree.), Ideas of Reference (appears to be resolving ) Sensorium: Clear Cognition: Alert & Oriented-Person, Alert & Oriented-Place, Alert & Oriented- Time, Ftvng-Maicsbyf-Ruihryzlo Memory: Immediate, Recent, Remote Intelligence: Average Insight Judgment: Poor (slight improvement each day) Result Diagram: 05/17/18 0608 Imaging Allergies Coded Allergies No Known Drug Allergies (Unverified04/30/18) [facility] Assessment and Plan Dapg-nw-Cunc Encounter Date: May 19, 2018 Urmu-ld-Ofbs Encounter Time: 09:24 [facility] Plan: Necessary Precautions, Individual/Group Therapy, Admin/Titrate Meds, Educate Patient Tobacco Medications: Not Appropriate Condition Multpiple Antipsychotics Used: Yes Reason For >1 Antipsychotic: risperdal to help with delusions and mood stability. zyprexa as needed for acute chemical restraint. 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
[2018-05-19 13:40] VITALS: BP 108/60
[2018-05-19 20:30] VITALS: BP 130/84
[2018-05-19] MEDS: risperiDONE 1 MG TAB PO SCH (20:37)
[2018-05-19] MEDS: diphenhydrAMINE 25 MG CAP PO SCH (20:37)
[2018-05-20 03:57] VITALS: BP 93/53
--- NOTE | 2018-05-20 09:02 | BHS Progress Note ---
[facility] - Subjective Progress Notes Subjective Patient continues to be cooperative on the unit, and is wearing clothes when exiting room. Continues to have desires to "fast" at times, usually eating a larger amount in the evening. Interacting well overall with Mother during treatment team meeting. Denies any symptoms of psychiatric concern. Suicidal Ideation: None Homicidal Ideation: None [facility] - Objective Physical Exam Vital Signs Vital Signs Date Time Temp Pulse Resp B/P (MAP) Pulse Ox O2 Delivery O2 Flow Rate FiO2 05/20/18 03:57 97.7 56 93/53 (66) 94 Room Air 05/19/18 13:40 16 Muscle Strength and Tone: WNL Gait and Station: Steady [facility] Medications Reviewed: Side Effects, Benefits of Medication, Risks Allergies Reviewed: Yes Mental Status Exam General Appearance: Casual, Well Groomed, Good Eye Contact, Cooperative, Polite, Good Interaction; No Unkept, No Tearful, No Psychomotor Agitation, No P sychomotor Retardation, No Bizarre Mannerisms, No Tics Speech: Clear, Spontaneous, Normal Rate, Normal Rhythm, Normal Volume, Normal Tone; No Garbled, No Rambling Mood: Euthymic (Pt says his mood is "good.") Affect: Calm; No Withdrawn, No Tearful, No Anxious, No Agitated Thought Process: Organized, Logical, Goal Directed, Loose Associations (no evidence of, during interveiw today); No Flight of Ideas Thought Content: No Suicidal Ideation, No Homicidal Ideation; Delusions (ideas of reference likely ongoing), Auditory Halllucinations (denies today, but likely ongoing to some degree.), Ideas of Reference (appears to be resolving ) Sensorium: Clear Cognition: Alert & Oriented-Person, Alert & Oriented-Place, Alert & Oriented- Time, Rpxfs-Myzxwzpj-Ywjotkxtr Memory: Immediate, Recent, Remote Intelligence: Average Insight Judgment: Poor (slight improvement each day) Result Diagram: 05/17/18 0608 [facility] Assessment and Plan Btvs-la-Xrur Encounter Date: May 20, 2018 Uibd-kq-Teoj Encounter Time: 09:00 [facility] Plan: Necessary Precautions, Individual/Group Therapy, Admin/Titrate Meds, Educate Patient Tobacco Medications: Not Appropriate Condition Multpiple Antipsychotics Used: Yes Reason For >1 Antipsychotic: risperdal to help with delusions and mood stability. zyprexa as needed for acute chemical restraint. Problems: (1) Schizoaffective disorder, bipolar type Status: Chronic Condition 1. continue treatment. GISSEL MIRZA MD May 20, 2018 09:02
[2018-05-20] MEDS: CHOLECALCIFEROL 1000 UNIT TAB PO SCH (10:12)
[2018-05-20] MEDS: LITHIUM CARBONATE 300 MG CAP PO SCH ×2 (10:12→20:35)
[2018-05-20] MEDS: OMEGA-3 500 MG CAP PO SCH (10:12)
[2018-05-20] MEDS: FOLIC ACID 1 MG TAB PO SCH (10:12)
[2018-05-20] MEDS: THIAMINE HCL 100 MG TAB PO SCH (10:12)
[2018-05-20] MEDS: MULTIVITAMINS TAB PO SCH (10:12)
[2018-05-20 14:28] VITALS: BP 116/84
[2018-05-20] MEDS: diphenhydrAMINE 25 MG CAP PO SCH (20:35)
[2018-05-20] MEDS: risperiDONE 1 MG TAB PO SCH (20:35)
[2018-05-20 20:45] VITALS: BP 121/79
[2018-05-21 06:37] VITALS: BP 103/59
[2018-05-21] MEDS: CHOLECALCIFEROL 1000 UNIT TAB PO SCH (08:19)
[2018-05-21] MEDS: OMEGA-3 500 MG CAP PO SCH (08:19)
[2018-05-21] MEDS: THIAMINE HCL 100 MG TAB PO SCH (08:19)
[2018-05-21] MEDS: MULTIVITAMINS TAB PO SCH (08:19)
[2018-05-21] MEDS: FOLIC ACID 1 MG TAB PO SCH (08:19)
[2018-05-21] MEDS: LITHIUM CARBONATE 300 MG CAP PO SCH ×2 (08:49→20:08)
--- NOTE | 2018-05-21 11:03 | BHS Progress Note ---
[facility] - Subjective Progress Notes Subjective Patient continues to be very compliant on the unit, and is noted to be interacting well. Mood good, denies any concerns today, appetite, and sleep good. Patient notably able to go outside for escorted walk with no difficulties. Suicidal Ideation: None Homicidal Ideation: None [facility] - Objective Physical Exam Vital Signs Vital Signs Date Time Temp Pulse Resp B/P (MAP) Pulse Ox O2 Delivery O2 Flow Rate FiO2 05/21/18 06:37 98.0 62 103/59 (74) 94 Room Air 05/19/18 13:40 16 Muscle Strength and Tone: WNL Gait and Station: Steady [facility] Medications Reviewed: Side Effects, Benefits of Medication, Risks Allergies Reviewed: Yes Mental Status Exam General Appearance: Casual, Well Groomed, Good Eye Contact, Cooperative, Polite, Good Interaction; No Unkept, No Tearful, No Psychomotor Agitation, No Psychomotor Retardation, No Bizarre Mannerisms, No Tics Speech: Clear, Spontaneous, Normal Rate, Normal Rhythm, Normal Volume, Normal Tone; No Garbled, No Rambling Mood: Euthymic (Pt says his mood is "good.") Affect: Calm; No Withdrawn, No Tearful, No Anxious, No Agitated Thought Process: Organized, Logical, Goal Directed, Loose Associations (no evidence of, during interveiw today); No Flight of Ideas Thought Content: No Suicidal Ideation, No Homicidal Ideation; Delusions (ideas of reference likely ongoing), Auditory Halllucinations (denies today, but likely ongoing to some degree.), Ideas of Reference (appears to be resolving ) Sensorium: Clear Cognition: Alert & Oriented-Person, Alert & Oriented-Place, Alert & Oriented- Time, Qkgrh-Oagvqzox-Pcgwixmpz Memory: Immediate, Recent, Remote Intelligence: Average Insight Judgment: Poor (slight improvement each day) Result Diagram: 05/17/18 0608 [facility] Assessment and Plan Btfl-zy-Ncjh Encounter Date: May 21, 2018 Nnak-sa-Aktk Encounter Time: 10:00 [facility] Plan: Necessary Precautions, Individual/Group Therapy, Admin/Titrate Meds, Educate Patient Tobacco Medications: Not Appropriate Condition Multpiple Antipsychotics Used: Yes Reason For >1 Antipsychotic: risperdal to help with delusions and mood stability. zyprexa as needed for acute chemical restraint. Problems: (1) Schizoaffective disorder, bipolar type Status: Chronic Condition 1. continue treatment. 2. no medication changes. GISSEL MIRZA MD May 21, 2018 11:03
[2018-05-21 14:38] VITALS: BP 120/76
[2018-05-21 19:16] VITALS: BP 137/78
[2018-05-21] MEDS: risperiDONE 1 MG TAB PO SCH (20:08)
[2018-05-21] MEDS: diphenhydrAMINE 25 MG CAP PO SCH (20:08)
[2018-05-22 00:36] VITALS: BP 123/93
[2018-05-22] MEDS: OMEGA-3 500 MG CAP PO SCH (08:11)
[2018-05-22] MEDS: LITHIUM CARBONATE 300 MG CAP PO SCH ×2 (08:12→20:32)
[2018-05-22] MEDS: MULTIVITAMINS TAB PO SCH (08:12)
[2018-05-22] MEDS: CHOLECALCIFEROL 1000 UNIT TAB PO SCH (08:12)
[2018-05-22] MEDS: THIAMINE HCL 100 MG TAB PO SCH (08:12)
[2018-05-22] MEDS: FOLIC ACID 1 MG TAB PO SCH (08:12)
--- NOTE | 2018-05-22 09:29 | BHS Progress Note ---
[facility] - Subjective Progress Notes Subjective Patient doing well. demonstrating intact concentration while singing and playing a well known song on his guitar for staff this AM. Patient reporting good mood, and appetite today. Continues to be able to successfully go for walks escorted by staff. willl continue same medications. No other concerns today, await [facility] transfer. Suicidal Ideation: None Homicidal Ideation: None [facility] - Objective Physical Exam Vital Signs Vital Signs Date Time Temp Pulse Resp B/P (MAP) Pulse Ox O2 Delivery O2 Flow Rate FiO2 05/22/18 00:36 97.8 123/93 (103) 95 Room Air 05/21/18 19:16 75 05/19/18 13:40 16 Muscle Strength and Tone: WNL Gait and Station: Steady [facility] Medications Reviewed: Side Effects, Benefits of Medication, Risks Allergies Reviewed: Yes Mental Status Exam General Appearance: Casual, Well Groomed, Good Eye Contact, Cooperative, Polite, Good Interaction; No Unkept, No Tearful, No Psychomotor Agitation, No Psychomotor Retardation, No Bizarre Mannerisms, No Tics Speech: Clear, Spontaneous, Normal Rate, Normal Rhythm, Normal Volume, Normal Tone; No Garbled, No Rambling Mood: Euthymic (Pt says his mood is "good.") Affect: Calm; No Withdrawn, No Tearful, No Anxious, No Agitated Thought Process: Organized, Logical, Goal Directed, Loose Associations (no evidence of, during interveiw today); No Flight of Ideas Thought Content: No Suicidal Ideation, No Homicidal Ideation; Delusions (ideas of reference likely ongoing), Auditory Halllucinations (denies today, but likely ongoing to some degree.), Ideas of Reference (appears to be resolving ) Sensorium: Clear Cognition: Alert & Oriented-Person, Alert & Oriented-Place, Alert & Oriented- Time, Biwub-Pwslzgeb-Vvnpshbqq Memory: Immediate, Recent, Remote Intelligence: Average Insight Judgment: Poor (slight improvement each day) [facility] Assessment and Plan Fdse-yi-Lkgl Encounter Date: May 22, 2018 Nxfq-hb-Heft Encounter Time: 09:00 [facility] Plan: Necessary Precautions, Individual/Group Therapy, Admin/Titrate Meds, Educate Patient Tobacco Medications: Not Appropriate Condition Multpiple Antipsychotics Used: Yes Reason For >1 Antipsychotic: risperdal to help with delusions and mood stability. zyprexa as needed for acute chemical restraint. Problems: (1) Schizoaffective disorder, bipolar type Status: Chronic Condition 1. continue treatment. 2. consta injection tomorrow. GISSEL MIRZA MD May 22, 2018 09:29
[2018-05-22 12:27] VITALS: BP 128/68
[2018-05-22] MEDS: diphenhydrAMINE 25 MG CAP PO SCH (20:33)
[2018-05-22] MEDS: risperiDONE 1 MG TAB PO SCH (20:33)
[2018-05-23 00:12] VITALS: BP 120/62
[2018-05-23] MEDS: THIAMINE HCL 100 MG TAB PO SCH (08:13)
[2018-05-23] MEDS: MULTIVITAMINS TAB PO SCH (08:13)
[2018-05-23] MEDS: FOLIC ACID 1 MG TAB PO SCH (08:13)
[2018-05-23] MEDS: LITHIUM CARBONATE 300 MG CAP PO SCH ×2 (08:13→20:35)
[2018-05-23] MEDS: CHOLECALCIFEROL 1000 UNIT TAB PO SCH (08:13)
[2018-05-23] MEDS: OMEGA-3 500 MG CAP PO SCH (08:13)
[2018-05-23] MEDS: RISPERIDONE 37.5 MG/2 ML IM ONLY SCH (09:51)
--- NOTE | 2018-05-23 10:08 | BHS Progress Note ---
[facility] - Subjective Progress Notes Subjective Patient cooperative on the unit today again, and cooperative with consta injection. Patient stabilizing overall from a mood disorder and psychosis standpoint. No other concerns today, will keep medications the same. Suicidal Ideation: None Homicidal Ideation: None S - Objective Physical Exam Vital Signs Hematology Test 05/01/18 10:34 05/10/18 06:14 05/13/18 00:00 05/17/18 06:08 Free Thyroxine 1.52 ng/dl (0.78-2.19) Free Triiodothyronine 3.8 pg/mL (2.4-4.2) Red Blood Count 4.87 M/uL (4.00-5.60) Mean Corpuscular Volume 90.7 fL (80.0-96.0) Mean Corpuscular Hemoglobin 31.3 pg (26.0-33.0) Mean Corpuscular Hemoglobin Concent 34.5 g/dL (32.0-36.0) Red Cell Distribution Width 13.3 % (11.5-14.5) Mean Platelet Volume 8.5 fL (7.2-11.1) Neutrophils (%) (Auto) 70.9 % (39.4-72.5) Lymphocytes (%) (Auto) 18.5 % (17.6-49.6) Monocytes (%) (Auto) 8.9 % (4.1-12.4) Eosinophils (%) (Auto) 1.5 % (0.4-6.7) Basophils (%) (Auto) 0.2 % (0.3-1.4) Nucleated RBC Relative Count (auto) 0.0 /100WBC Neutrophils # (Auto) 6.8 K/uL (2.0-7.4) Lymphocytes # (Auto) 1.8 K/uL (1.3-3.6) Monocytes # (Auto) 0.9 K/uL (0.3-1.0) Eosinophils # (Auto) 0.1 K/uL (0.0-0.5) Basophils # (Auto) 0.0 K/uL (0.0-0.1) Nucleated RBC Absolute Count (auto) 0.00 K/uL Tuberculin Skin Test 0 mm Sodium Level 141 mmol/L (137-145) Potassium Level 4.4 mmol/L (3.5-5.0) Chloride Level 103 mmol/L (98-107) Carbon Dioxide Level 26 mmol/L (22-30) Blood Urea Nitrogen 17 mg/dl (9-21) Creatinine 0.90 mg/dl (0.66-1.25) Glomerular Filtration Rate Calc > 60.0 Random Glucose 88 mg/dl (75-110) Calcium Level 9.3 mg/dl (8.4-10.2) Total Bilirubin 0.4 mg/dl (0.2-1.3) Aspartate Amino Transf (AST/SGOT) 37 U/L (0-35) Alanine Aminotransferase (ALT/SGPT) 73 U/L (0-56) Alkaline Phosphatase 49 U/L (0-126) Total Protein 6.6 g/dl (6.3-8.2) Albumin 4.0 g/dl (3.5-5.0) [place] Level 0.7 mmol/L (0.6-1.2) Chemistry Test 05/01/18 10:34 05/10/18 06:14 05/13/18 00:00 05/17/18 06:08 Free Thyroxine 1.52 ng/dl (0.78-2.19) Free Triiodothyronine 3.8 pg/mL (2.4-4.2) White Blood Count 9.5 k/uL (4.5-11.0) Red Blood Count 4.87 M/uL (4.00-5.60) Hemoglobin 15.3 g/dL (14.0-18.0) Hematocrit 44.2 % (42.0-52.0) Mean Corpuscular Volume 90.7 fL (80.0-96.0) Mean Corpuscular Hemoglobin 31.3 pg (26.0-33.0) Mean Corpuscular Hemoglobin Concent 34.5 g/dL (32.0-36.0) Red Cell Distribution Width 13.3 % (11.5-14.5) Platelet Count 218 K/uL (150-450) Mean Platelet Volume 8.5 fL (7.2-11.1) Neutrophils (%) (Auto) 70.9 % (39.4-72.5) Lymphocytes (%) (Auto) 18.5 % (17.6-49.6) Monocytes (%) (Auto) 8.9 % (4.1-12.4) Eosinophils (%) (Auto) 1.5 % (0.4-6.7) Basophils (%) (Auto) 0.2 % (0.3-1.4) Nucleated RBC Relative Count (auto) 0.0 /100WBC Neutrophils # (Auto) 6.8 K/uL (2.0-7.4) Lymphocytes # (Auto) 1.8 K/uL (1.3-3.6) Monocytes # (Auto) 0.9 K/uL (0.3-1.0) Eosinophils # (Auto) 0.1 K/uL (0.0-0.5) Basophils # (Auto) 0.0 K/uL (0.0-0.1) Nucleated RBC Absolute Count (auto) 0.00 K/uL Tuberculin Skin Test 0 mm Glomerular Filtration Rate Calc > 60.0 Calcium Level 9.3 mg/dl (8.4-10.2) Total Bilirubin 0.4 mg/dl (0.2-1.3) Aspartate Amino Transf (AST/SGOT) 37 U/L (0-35) Alanine Aminotransferase (ALT/SGPT) 73 U/L (0-56) Alkaline Phosphatase 49 U/L (0-126) Total Protein 6.6 g/dl (6.3-8.2) Albumin 4.0 g/dl (3.5-5.0) [place] Level 0.7 mmol/L (0.6-1.2) Toxicology Test 05/17/18 06:08 [place] Level 0.7 mmol/L (0.6-1.2) Vital Signs Date Time Temp Pulse Resp B/P (MAP) Pulse Ox O2 Delivery O2 Flow Rate FiO2 05/23/18 00:12 97.6 86 120/62 (81) 96 Room Air 05/19/18 13:40 16 Muscle Strength and Tone: WNL Gait and Station: Steady S Medications Reviewed: Side Effects, Benefits of Medication, Risks Allergies Reviewed: Yes Mental Status Exam General Appearance: Casual, Well Groomed, Good Eye Contact, Cooperative, Polite, Good Interaction; No Unkept, No Tearful, No Psychomotor Agitation, No Psychomotor Retardation, No Bizarre Mannerisms, No Tics Speech: Clear, Spontaneous, Normal Rate, Normal Rhythm, Normal Volume, Normal Tone; No Garbled, No Rambling Mood: Euthymic (Pt says his mood is "good.") Affect: Calm; No Withdrawn, No Tearful, No Anxious, No Agitated Thought Process: Organized, Logical, Goal Directed, Loose Associations (no evidence of, during interveiw today); No Flight of Ideas Thought Content: No Suicidal Ideation, No Homicidal Ideation; Delusions (ideas of reference likely ongoing), Auditory Halllucinations (denies today, but likely ongoing to some degree.), Ideas of Reference (appears to be resolving ) Sensorium: Clear Cognition: Alert & Oriented-Person, Alert & Oriented-Place, Alert & Oriented- Time, Edvma-Ghywgdcr-Joljjqvuv Memory: Immediate, Recent, Remote Intelligence: Average Insight Judgment: Poor (slight improvement each day) [facility] Assessment and Plan Syov-gg-Qioj Encounter Date: May 23, 2018 Kwly-kz-Ltgd Encounter Time: 09:30 [facility] Plan: Necessary Precautions, Individual/Group Therapy, Admin/Titrate Meds, Educate Patient Tobacco Medications: Not Appropriate Condition Multpiple Antipsychotics Used: Yes Reason For >1 Antipsychotic: risperdal to help with delusions and mood stability. zyprexa as needed for acute chemical restraint. Problems: (1) Schizoaffective disorder, bipolar type Status: Chronic Condition 1. continue treatment. 2. consta today. GISSEL MIRZA MD May 23, 2018 10:08
[2018-05-23 13:36] VITALS: BP 119/72
[2018-05-23] MEDS: diphenhydrAMINE 25 MG CAP PO SCH (20:34)
[2018-05-23] MEDS: risperiDONE 1 MG TAB PO SCH (20:34)
[2018-05-24] MEDS: FOLIC ACID 1 MG TAB PO SCH (08:12)
[2018-05-24] MEDS: OMEGA-3 500 MG CAP PO SCH (08:12)
[2018-05-24] MEDS: LITHIUM CARBONATE 300 MG CAP PO SCH ×3 (08:12→21:29)
[2018-05-24] MEDS: THIAMINE HCL 100 MG TAB PO SCH (08:13)
[2018-05-24] MEDS: CHOLECALCIFEROL 1000 UNIT TAB PO SCH (08:13)
[2018-05-24] MEDS: MULTIVITAMINS TAB PO SCH (08:13)
--- NOTE | 2018-05-24 11:15 | BHS Progress Note ---
[facility] - Subjective Progress Notes Subjective Patient able to relate symptoms of being "manic" prior to admission and able to reflect on feeling an elevated mood at the time. Patient indicating an understanding of the need to take medications [employer]. I am hopeful that in the future this patient could potentially be weened off of risperdal and continue lithium alone. Will continue treatment, patient cooperative on the unit and denies any other symptoms. No other concerns. Patient notably able to use appropriate humor. Suicidal Ideation: None Homicidal Ideation: None [facility] - Objective Physical Exam Vital Signs Vital Signs Date Time Temp Pulse Resp B/P (MAP) Pulse Ox O2 Delivery O2 Flow Rate FiO2 05/23/18 13:36 98.4 86 119/72 (88) 93 Room Air Hematology Test 05/01/18 10:34 05/10/18 06:14 05/13/18 00:00 05/17/18 06:08 Free Thyroxine 1.52 ng/dl (0.78-2.19) Free Triiodothyronine 3.8 pg/mL (2.4-4.2) Red Blood Count 4.87 M/uL (4.00-5.60) Mean Corpuscular Volume 90.7 fL (80.0-96.0) Mean Corpuscular Hemoglobin 31.3 pg (26.0-33.0) Mean Corpuscular Hemoglobin Concent 34.5 g/dL (32.0-36.0) Red Cell Distribution Width 13.3 % (11.5-14.5) Mean Platelet Volume 8.5 fL (7.2-11.1) Neutrophils (%) (Auto) 70.9 % (39.4-72.5) Lymphocytes (%) (Auto) 18.5 % (17.6-49.6) Monocytes (%) (Auto) 8.9 % (4.1-12.4) Eosinophils (%) (Auto) 1.5 % (0.4-6.7) Basophils (%) (Auto) 0.2 % (0.3-1.4) Nucleated RBC Relative Count (auto) 0.0 /100WBC Neutrophils # (Auto) 6.8 K/uL (2.0-7.4) Lymphocytes # (Auto) 1.8 K/uL (1.3-3.6) Monocytes # (Auto) 0.9 K/uL (0.3-1.0) Eosinophils # (Auto) 0.1 K/uL (0.0-0.5) Basophils # (Auto) 0.0 K/uL (0.0-0.1) Nucleated RBC Absolute Count (auto) 0.00 K/uL Tuberculin Skin Test 0 mm Sodium Level 141 mmol/L (137-145) Potassium Level 4.4 mmol/L (3.5-5.0) Chloride Level 103 mmol/L (98-107) Carbon Dioxide Level 26 mmol/L (22-30) Blood Urea Nitrogen 17 mg/dl (9-21) Creatinine 0.90 mg/dl (0.66-1.25) Glomerular Filtration Rate Calc > 60.0 Random Glucose 88 mg/dl (75-110) Calcium Level 9.3 mg/dl (8.4-10.2) Total Bilirubin 0.4 mg/dl (0.2-1.3) Aspartate Amino Transf (AST/SGOT) 37 U/L (0-35) Alanine Aminotransferase (ALT/SGPT) 73 U/L (0-56) Alkaline Phosphatase 49 U/L (0-126) Total Protein 6.6 g/dl (6.3-8.2) Albumin 4.0 g/dl (3.5-5.0) [place] Level 0.7 mmol/L (0.6-1.2) Chemistry Test 05/01/18 10:34 05/10/18 06:14 05/13/18 00:00 05/17/18 06:08 Free Thyroxine 1.52 ng/dl (0.78-2.19) Free Triiodothyronine 3.8 pg/mL (2.4-4.2) White Blood Count 9.5 k/uL (4.5-11.0) Red Blood Count 4.87 M/uL (4.00-5.60) Hemoglobin 15.3 g/dL (14.0-18.0) Hematocrit 44.2 % (42.0-52.0) Mean Corpuscular Volume 90.7 fL (80.0-96.0) Mean Corpuscular Hemoglobin 31.3 pg (26.0-33.0) Mean Corpuscular Hemoglobin Concent 34.5 g/dL (32.0-36.0) Red Cell Distribution Width 13.3 % (11.5-14.5) Platelet Count 218 K/uL (150-450) Mean Platelet Volume 8.5 fL (7.2-11.1) Neutrophils (%) (Auto) 70.9 % (39.4-72.5) Lymphocytes (%) (Auto) 18.5 % (17.6-49.6) Monocytes (%) (Auto) 8.9 % (4.1-12.4) Eosinophils (%) (Auto) 1.5 % (0.4-6.7) Basophils (%) (Auto) 0.2 % (0.3-1.4) Nucleated RBC Relative Count (auto) 0.0 /100WBC Neutrophils # (Auto) 6.8 K/uL (2.0-7.4) Lymphocytes # (Auto) 1.8 K/uL (1.3-3.6) Monocytes # (Auto) 0.9 K/uL (0.3-1.0) Eosinophils # (Auto) 0.1 K/uL (0.0-0.5) Basophils # (Auto) 0.0 K/uL (0.0-0.1) Nucleated RBC Absolute Count (auto) 0.00 K/uL Tuberculin Skin Test 0 mm Glomerular Filtration Rate Calc > 60.0 Calcium Level 9.3 mg/dl (8.4-10.2) Total Bilirubin 0.4 mg/dl (0.2-1.3) Aspartate Amino Transf (AST/SGOT) 37 U/L (0-35) Alanine Aminotransferase (ALT/SGPT) 73 U/L (0-56) Alkaline Phosphatase 49 U/L (0-126) Total Protein 6.6 g/dl (6.3-8.2) Albumin 4.0 g/dl (3.5-5.0) [place] Level 0.7 mmol/L (0.6-1.2) Toxicology Test 05/17/18 06:08 [place] Level 0.7 mmol/L (0.6-1.2) Muscle Strength and Tone: WNL Gait and Station: Steady S Medications Reviewed: Side Effects, Benefits of Medication, Risks Allergies Reviewed: Yes Mental Status Exam General Appearance: Casual, Well Groomed, Good Eye Contact, Cooperative, Polite, Good Interaction; No Unkept, No Tearful, No Psychomotor Agitation, No Psychomotor Retardation, No Bizarre Mannerisms, No Tics Speech: Clear, Spontaneous, Normal Rate, Normal Rhythm, Normal Volume, Normal Tone; No Garbled, No Rambling Mood: Euthymic (Pt says his mood is "good.") Affect: Calm; No Withdrawn, No Tearful, No Anxious, No Agitated Thought Process: Organized, Logical, Goal Directed, Loose Associations (no evidence of, during interveiw today); No Flight of Ideas Thought Content: No Suicidal Ideation, No Homicidal Ideation; Delusions (ideas of reference likely ongoing), Auditory Halllucinations (denies today, possibly minimal ongoing. ), Ideas of Reference (appears to be resolving ) Sensorium: Clear Cognition: Alert & Oriented-Person, Alert & Oriented-Place, Alert & Oriented- Time, Cmrfg-Ikputnim-Glmkhqikd Memory: Immediate, Recent, Remote Intelligence: Average Insight Judgment: Poor (slight improvement each day) [facility] Assessment and Plan Axdx-zj-Ieyq Encounter Date: May 24, 2018 Jpxk-sn-Vkps Encounter Time: 08:40 [facility] Plan: Necessary Precautions, Individual/Group Therapy, Admin/Titrate Meds, Educate Patient Tobacco Medications: Not Appropriate Condition Multpiple Antipsychotics Used: Yes Reason For >1 Antipsychotic: risperdal to help with delusions and mood stability. zyprexa as needed for acute chemical restraint. Problems: (1) Schizoaffective disorder, bipolar type Status: Chronic Condition 1. continue treatment. 2. [facility] GISSEL MIRZA MD May 24, 2018 11:15
[2018-05-24 13:31] VITALS: BP 121/78
[2018-05-24] MEDS: risperiDONE 1 MG TAB PO SCH ×2 (20:00→21:29)
[2018-05-24] MEDS: diphenhydrAMINE 25 MG CAP PO SCH ×2 (20:00→21:28)
[2018-05-25 06:10] VITALS: BP 124/78
[2018-05-25] MEDS: MULTIVITAMINS TAB PO SCH (08:54)
[2018-05-25] MEDS: FOLIC ACID 1 MG TAB PO SCH (08:54)
[2018-05-25] MEDS: OMEGA-3 500 MG CAP PO SCH (08:55)
[2018-05-25] MEDS: CHOLECALCIFEROL 1000 UNIT TAB PO SCH (08:55)
[2018-05-25] MEDS: THIAMINE HCL 100 MG TAB PO SCH (08:55)
[2018-05-25] MEDS ORDERED: LITHIUM CARBONATE 300 MG CAP PO ONE (09:10)
--- NOTE | 2018-05-25 12:02 | BHS Progress Note ---
[facility] - Subjective Progress Notes Subjective Pt seen in conference room. Since last night he has removed his clothing and stayed in his room naked. He has not come out of his room naked, and he did, with some cajoling, agree to put on clothes and come to conference room. He seems a bit more regressed with psychotic thought content and process. Acknowledges AH, which are "the way the universe expresses its feelings to me." He seems moderately guarded and suspicious. Denies any thoughts of gouging his eye out or of cutting his penis off. Cooperative with medications. Sleep and appetite are good. Denies constipation/n/v/d/tremor. Will continue current treatment plan, awaiting a bed at [facility]. Suicidal Ideation: None Homicidal Ideation: None [facility] - Objective Physical Exam Vital Signs Vital Signs 05/25/18 06:10 Temp 98.0 Pulse 72 Resp 18 B/P (MAP) 124/78 (93) Pulse Ox 94 O2 Delivery Room Air Muscle Strength and Tone: WNL Gait and Station: Steady [facility] Medications Reviewed: Side Effects, Benefits of Medication, Risks Allergies Reviewed: Yes Mental Status Exam General Appearance: Casual, Well Groomed, Good Eye Contact, Cooperative, Polite, Good Interaction; No Unkept, No Tearful, No Psychomotor Agitation, No Psychomotor Retardation, No Bizarre Mannerisms, No Tics Speech: Clear, Spontaneous, Normal Rate, Normal Rhythm, Normal Volume, Normal Tone; No Garbled, No Rambling Mood: Euthymic Affect: Calm, Withdrawn (staying isolated to his room since last night, naked.); No Tearful, No Anxious, No Agitated Thought Process: Other (tangential) Thought Content: No Suicidal Ideation, No Homicidal Ideation; Delusions (ideas of reference likely ongoing), Auditory Halllucinations (acknowledges today); No Visual Hallucinations, No Thought Broadcasting; Ideas of Reference; No Obsessions, No Compulsions, No Other Sensorium: Clear Cognition: Alert & Oriented-Person, Alert & Oriented-Place, Alert & Oriented- Time, Dehrk-Hxduorqa-Mfgxjzhpf Memory: Immediate, Recent, Remote Intelligence: Average Insight Judgment: Poor (slight improvement each day) [facility] Assessment and Plan Kwwi-[id number] Encounter Date: May 25, 2018 Ziwu-oz-Lglj Encounter Time: 10:30 [facility] Plan: Necessary Precautions, Individual/Group Therapy, Admin/Titrate Meds, Educate Patient Tobacco Medications: Not Appropriate Condition Multpiple Antipsychotics Used: Yes Reason For >1 Antipsychotic: risperdal to help with delusions and mood stability. zyprexa as needed for acute chemical restraint. Problems: (1) Schizoaffective disorder, bipolar type Status: Chronic NADYA RODRIGUEZ MD May 25, 2018 12:02
[2018-05-25 13:05] VITALS: BP 138/56
[2018-05-25 18:32] VITALS: BP 118/72
[2018-05-25] MEDS: LITHIUM CARBONATE 300 MG CAP PO SCH (20:28)
[2018-05-25] MEDS: diphenhydrAMINE 25 MG CAP PO SCH (20:29)
[2018-05-25] MEDS: risperiDONE 1 MG TAB PO SCH (20:30)
[2018-05-26] MEDS: CHOLECALCIFEROL 1000 UNIT TAB PO SCH (08:09)
[2018-05-26] MEDS: MULTIVITAMINS TAB PO SCH (08:09)
[2018-05-26] MEDS: THIAMINE HCL 100 MG TAB PO SCH (08:09)
[2018-05-26] MEDS: OMEGA-3 500 MG CAP PO SCH (08:09)
[2018-05-26] MEDS: FOLIC ACID 1 MG TAB PO SCH (08:09)
[2018-05-26] MEDS: LITHIUM CARBONATE 300 MG CAP PO SCH ×2 (08:10→20:23)
[2018-05-26 12:00] VITALS: BP 104/72
--- NOTE | 2018-05-26 15:03 | BHS Progress Note ---
[facility] - Subjective Progress Notes Subjective Pt seen in conference room. He seems a bit les regressed today-- has been keeping his clothes on and has been more active in the [place] today. Denies AH today. Denies any urges for self harm. Tolerating meds well without oversedation. Denies constipation/n/v/d/tremor. Continue to await bed at [facility]. Suicidal Ideation: None Homicidal Ideation: None [facility] - Objective Physical Exam Vital Signs Vital Signs 05/26/18 12:00 Temp 98.3 Pulse 68 Resp 16 B/P (MAP) 104/72 (83) Pulse Ox 96 O2 Delivery Room Air Muscle Strength and Tone: WNL Gait and Station: Steady [facility] Medications Reviewed: Side Effects, Benefits of Medication, Risks Allergies Reviewed: Yes Mental Status Exam General Appearance: Casual, Well Groomed, Good Eye Contact, Cooperative, Polite, Good Interaction; No Unkept, No Tearful, No Psychomotor Agitation, No Psychomotor Retardation, No Bizarre Mannerisms, No Tics Speech: Clear, Spontaneous, Normal Rate, Normal Rhythm, Normal Volume, Normal Tone; No Garbled, No Rambling Mood: Euthymic Affect: Calm, Withdrawn (less withdrawn today); No Tearful, No Anxious, No Agitated Thought Process: Other (tangential) Thought Content: No Suicidal Ideation, No Homicidal Ideation; Delusions (ideas of reference likely ongoing), Auditory Halllucinations (denies today); No Visual Hallucinations, No Thought Broadcasting; Ideas of Reference; No Obsessions, No Compulsions, No Other Sensorium: Clear Cognition: Alert & Oriented-Person, Alert & Oriented-Place, Alert & Oriented- Time, Tjvpf-Ablrmyfm-Qmnfexcgj Memory: Immediate, Recent, Remote Intelligence: Average Insight Judgment: Poor (slight improvement each day) [facility] Assessment and Plan [id number] Encounter Date: May 26, 2018 Hepk-ku-Zsad Encounter Time: 10:30 [facility] Plan: Necessary Precautions, Individual/Group Therapy, Admin/Titrate Meds, Educate Patient Tobacco Medications: Not Appropriate Condition Multpiple Antipsychotics Used: Yes Reason For >1 Antipsychotic: risperdal to help with delusions and mood stability. zyprexa as needed for acute chemical restraint. Problems: (1) Schizoaffective disorder, bipolar type Status: Chronic NADYA RODRIGUEZ MD May 26, 2018 15:03
[2018-05-26] MEDS: risperiDONE 1 MG TAB PO SCH (20:24)
[2018-05-26] MEDS: diphenhydrAMINE 25 MG CAP PO SCH (20:24)
[2018-05-26] MEDS ORDERED: OLANZapine 5 MG TAB PO PRN (22:05)
[2018-05-26 22:22] VITALS: BP 143/83
[2018-05-27 04:30] VITALS: BP 130/88
[2018-05-27] MEDS: OMEGA-3 500 MG CAP PO SCH (08:10)
[2018-05-27] MEDS: THIAMINE HCL 100 MG TAB PO SCH (08:10)
[2018-05-27] MEDS: CHOLECALCIFEROL 1000 UNIT TAB PO SCH (08:10)
[2018-05-27] MEDS: LITHIUM CARBONATE 300 MG CAP PO SCH ×2 (08:10→20:11)
[2018-05-27] MEDS: MULTIVITAMINS TAB PO SCH (08:10)
[2018-05-27] MEDS: FOLIC ACID 1 MG TAB PO SCH (08:10)
--- NOTE | 2018-05-27 14:36 | BHS Progress Note ---
[facility] - Subjective Progress Notes Subjective Pt seen in treatment team meeting with staff. Pt has continued to be more regressed, again last night refusing to wear clothes, was getting s/w agitated on evening shift, came out of room without clothes. Today he had to be moved to adolescent area because he continued to attempt to come out without clothes on. Later this morning he decided to wear clothes. I pointed out to him that he has been worse over last few days, more "in his own head," admitted to hearing voices again, etc. Later he did tell me that he had flushed his risperdal last evening-- he says this was the only time. Will increase his risperdal to 4 mg q hs, since he likely has some enzyme-induction at this point (4 weeks into risperdal). Will also need to do mouth checks. Most likely enzyme-induction AND cheeking meds are both playing a role in his regression. Want to be conservative in this pt with high-risk self-harming behaviors recently. Eulalio reynoso routine lithium labs in am. Suicidal Ideation: None Homicidal Ideation: None [facility] - Objective Physical Exam Vital Signs Vital Signs 05/26/18 05/27/18 12:00 04:30 Temp 98.4 Pulse 71 Resp 16 B/P (MAP) 130/88 (102) Pulse Ox 93 O2 Delivery Room Air Muscle Strength and Tone: WNL Gait and Station: Steady [facility] Medications Reviewed: Side Effects, Benefits of Medication, Risks Allergies Reviewed: Yes Mental Status Exam General Appearance: Casual, Well Groomed, Good Eye Contact, Polite, Good Interaction; No Unkept, No Tearful, No Psychomotor Agitation, No Psychomotor Retardation, No Bizarre Mannerisms, No Tics Speech: Clear, Spontaneous, Normal Rate, Normal Rhythm, Normal Volume, Normal Tone; No Garbled, No Rambling Mood: Euthymic Affect: Calm; No Tearful, No Anxious, No Agitated Thought Process: Other (tangential) Thought Content: No Suicidal Ideation, No Homicidal Ideation; Delusions (ideas of reference likely ongoing, talks about the "environment communicates its feelings through voices"), Auditory Halllucinations (he is guarded about disclosing the extent, but does acknowledge); No Visual Hallucinations, No Thought Broadcasting; Ideas of Reference; No Obsessions, No Compulsions, No Other Sensorium: Clear Cognition: Alert & Oriented-Person, Alert & Oriented-Place, Alert & Oriented- Time, Gxzim-Qkcmqseo-Dxthavqid Memory: Immediate, Recent, Remote Intelligence: Average Insight Judgment: Poor (slight improvement each day) [facility] Assessment and Plan Knwg-rq-[id number] Encounter Date: May 27, 2018 Uoiz-jp-Qbqx Encounter Time: 11:00 [facility] Plan: Necessary Precautions, Individual/Group Therapy, Admin/Titrate Meds, Educate Patient Tobacco Medications: Not Appropriate Condition Multpiple Antipsychotics Used: Yes Reason For >1 Antipsychotic: risperdal to help with delusions and mood stability. zyprexa as needed for acute chemical restraint. Problems: (1) Schizoaffective disorder, bipolar type Status: Chronic NADYA RODRIGUEZ MD May 27, 2018 14:36
[2018-05-27 14:38] VITALS: BP 127/88
[2018-05-27] MEDS: risperiDONE 1 MG TAB PO SCH (20:11)
[2018-05-27] MEDS: diphenhydrAMINE 25 MG CAP PO SCH (20:12)
[2018-05-27 22:06] VITALS: BP 122/59
[2018-05-28 05:56] VITALS: BP 111/72
[2018-05-28] MEDS: MULTIVITAMINS TAB PO SCH (08:00)
[2018-05-28] MEDS: CHOLECALCIFEROL 1000 UNIT TAB PO SCH (08:00)
[2018-05-28] MEDS: LITHIUM CARBONATE 300 MG CAP PO SCH ×2 (08:00→20:18)
[2018-05-28] MEDS: OMEGA-3 500 MG CAP PO SCH (08:00)
[2018-05-28] MEDS: THIAMINE HCL 100 MG TAB PO SCH (08:00)
[2018-05-28] MEDS: FOLIC ACID 1 MG TAB PO SCH (08:00)
--- NOTE | 2018-05-28 11:38 | BHS Progress Note ---
[facility] - Subjective Progress Notes Subjective Patient alert this AM, absence of clothing notable. Notable is patient's accurate memory of a previous patient. Patient not exhibiting any signs of que, but unable to give any rational for not wearing clothing. Later patient put on bed sheet. Declining offer to go for escorted walk. Patient continues to await [facility]. No medication changes. Suicidal Ideation: None Homicidal Ideation: None [facility] - Objective Physical Exam Vital Signs Hematology Test 05/01/18 10:34 05/10/18 06:14 05/13/18 00:00 05/28/18 05:52 Free Thyroxine 1.52 ng/dl (0.78-2.19) Free Triiodothyronine 3.8 pg/mL (2.4-4.2) Red Blood Count 4.87 M/uL (4.00-5.60) Mean Corpuscular Volume 90.7 fL (80.0-96.0) Mean Corpuscular Hemoglobin 31.3 pg (26.0-33.0) Mean Corpuscular Hemoglobin Concent 34.5 g/dL (32.0-36.0) Red Cell Distribution Width 13.3 % (11.5-14.5) Mean Platelet Volume 8.5 fL (7.2-11.1) Neutrophils (%) (Auto) 70.9 % (39.4-72.5) Lymphocytes (%) (Auto) 18.5 % (17.6-49.6) Monocytes (%) (Auto) 8.9 % (4.1-12.4) Eosinophils (%) (Auto) 1.5 % (0.4-6.7) Basophils (%) (Auto) 0.2 % (0.3-1.4) Nucleated RBC Relative Count (auto) 0.0 /100WBC Neutrophils # (Auto) 6.8 K/uL (2.0-7.4) Lymphocytes # (Auto) 1.8 K/uL (1.3-3.6) Monocytes # (Auto) 0.9 K/uL (0.3-1.0) Eosinophils # (Auto) 0.1 K/uL (0.0-0.5) Basophils # (Auto) 0.0 K/uL (0.0-0.1) Nucleated RBC Absolute Count (auto) 0.00 K/uL Tuberculin Skin Test 0 mm Sodium Level 142 mmol/L (137-145) Potassium Level 4.4 mmol/L (3.5-5.0) Chloride Level 103 mmol/L (98-107) Carbon Dioxide Level 27 mmol/L (22-30) Blood Urea Nitrogen 18 mg/dl (9-21) Creatinine 1.00 mg/dl (0.66-1.25) Glomerular Filtration Rate Calc > 60.0 Random Glucose 95 mg/dl (75-110) Calcium Level 10.0 mg/dl (8.4-10.2) Total Bilirubin 0.6 mg/dl (0.2-1.3) Aspartate Amino Transf (AST/SGOT) 33 U/L (0-35) Alanine Aminotransferase (ALT/SGPT) 53 U/L (0-56) Alkaline Phosphatase 44 U/L (0-126) Total Protein 7.0 g/dl (6.3-8.2) Albumin 4.1 g/dl (3.5-5.0) Thyroid Stimulating Hormone (TSH) 5.84 uIU/ml (0.46-4.68) [place] Level 0.7 mmol/L (0.6-1.2) Chemistry Test 05/01/18 10:34 05/10/18 06:14 05/13/18 00:00 05/28/18 05:52 Free Thyroxine 1.52 ng/dl (0.78-2.19) Free Triiodothyronine 3.8 pg/mL (2.4-4.2) White Blood Count 9.5 k/uL (4.5-11.0) Red Blood Count 4.87 M/uL (4.00-5.60) Hemoglobin 15.3 g/dL (14.0-18.0) Hematocrit 44.2 % (42.0-52.0) Mean Corpuscular Volume 90.7 fL (80.0-96.0) Mean Corpuscular Hemoglobin 31.3 pg (26.0-33.0) Mean Corpuscular Hemoglobin Concent 34.5 g/dL (32.0-36.0) Red Cell Distribution Width 13.3 % (11.5-14.5) Platelet Count 218 K/uL (150-450) Mean Platelet Volume 8.5 fL (7.2-11.1) Neutrophils (%) (Auto) 70.9 % (39.4-72.5) Lymphocytes (%) (Auto) 18.5 % (17.6-49.6) Monocytes (%) (Auto) 8.9 % (4.1-12.4) Eosinophils (%) (Auto) 1.5 % (0.4-6.7) Basophils (%) (Auto) 0.2 % (0.3-1.4) Nucleated RBC Relative Count (auto) 0.0 /100WBC Neutrophils # (Auto) 6.8 K/uL (2.0-7.4) Lymphocytes # (Auto) 1.8 K/uL (1.3-3.6) Monocytes # (Auto) 0.9 K/uL (0.3-1.0) Eosinophils # (Auto) 0.1 K/uL (0.0-0.5) Basophils # (Auto) 0.0 K/uL (0.0-0.1) Nucleated RBC Absolute Count (auto) 0.00 K/uL Tuberculin Skin Test 0 mm Glomerular Filtration Rate Calc > 60.0 Calcium Level 10.0 mg/dl (8.4-10.2) Total Bilirubin 0.6 mg/dl (0.2-1.3) Aspartate Amino Transf (AST/SGOT) 33 U/L (0-35) Alanine Aminotransferase (ALT/SGPT) 53 U/L (0-56) Alkaline Phosphatase 44 U/L (0-126) Total Protein 7.0 g/dl (6.3-8.2) Albumin 4.1 g/dl (3.5-5.0) Thyroid Stimulating Hormone (TSH) 5.84 uIU/ml (0.46-4.68) [place] Level 0.7 mmol/L (0.6-1.2) Toxicology Test 05/28/18 05:52 [place] Level 0.7 mmol/L (0.6-1.2) Vital Signs Date Time Temp Pulse Resp B/P (MAP) Pulse Ox O2 Delivery O2 Flow Rate FiO2 05/28/18 05:56 97.7 66 111/72 (85) 94 Room Air 05/26/18 12:00 16 Muscle Strength and Tone: WNL Gait and Station: Steady S Medications Reviewed: Side Effects, Benefits of Medication, Risks Allergies Reviewed: Yes Mental Status Exam General Appearance: Casual, Well Groomed (mostly with absence of clothing ), Good Eye Contact, Polite, Good Interaction; No Unkept, No Tearful, No Psychomotor Agitation, No Psychomotor Retardation, No Bizarre Mannerisms, No Tics Speech: Clear, Spontaneous, Normal Rate, Normal Rhythm, Normal Volume, Normal Tone; No Garbled, No Rambling Mood: Euthymic (frustrated appearing today. ) Affect: Calm; No Tearful, No Anxious, No Agitated Thought Process: Other (tangential) Thought Content: No Suicidal Ideation, No Homicidal Ideation; Delusions (ideas of reference likely ongoing, talks about the "environment communicates its feelings through voices"), Auditory Halllucinations (he is guarded about disclosing the extent, but does acknowledge); No Visual Hallucinations, No Thought Broadcasting; Ideas of Reference; No Obsessions, No Compulsions, No Other Sensorium: Clear Cognition: Alert & Oriented-Person, Alert & Oriented-Place, Alert & Oriented- Time, Zfdvw-Hlywclfh-Itfchptca Memory: Immediate, Recent, Remote Intelligence: Average Insight Judgment: Poor (recent regression, to some degree. ) Result Diagram: 05/28/18 0552 [facility] Assessment and Plan Bnan-ri-[id number] Encounter Date: May 28, 2018 Zenp-dt-Tkyl Encounter Time: 11:00 [facility] Plan: Necessary Precautions, Individual/Group Therapy, Admin/Titrate Meds, Educate Patient Tobacco Medications: Not Appropriate Condition Multpiple Antipsychotics Used: Yes Reason For >1 Antipsychotic: risperdal to help with delusions and mood stability. zyprexa as needed for acute chemical restraint. Problems: (1) Schizoaffective disorder, bipolar type Status: Chronic Condition 1. continue treatment 2. no medication changes. 3. await transfer to [facility] GISSEL MIRZA MD May 28, 2018 11:38
[2018-05-28 13:30] VITALS: BP 111/73
[2018-05-28] MEDS: diphenhydrAMINE 25 MG CAP PO SCH (20:18)
[2018-05-28] MEDS: risperiDONE 1 MG TAB PO SCH (20:18)
[2018-05-28 21:33] VITALS: BP 133/83
[2018-05-29 06:35] VITALS: BP 116/66
[2018-05-29] MEDS: FOLIC ACID 1 MG TAB PO SCH (08:06)
[2018-05-29] MEDS: OMEGA-3 500 MG CAP PO SCH (08:06)
[2018-05-29] MEDS: LITHIUM CARBONATE 300 MG CAP PO SCH ×2 (08:07→20:58)
[2018-05-29] MEDS: CHOLECALCIFEROL 1000 UNIT TAB PO SCH (08:07)
[2018-05-29] MEDS: MULTIVITAMINS TAB PO SCH (08:07)
[2018-05-29] MEDS: THIAMINE HCL 100 MG TAB PO SCH (08:07)
--- NOTE | 2018-05-29 12:14 | BHS Progress Note ---
[facility] - Subjective Progress Notes Subjective Patient remains overall cooperative but reporting "I don't care" in reference to his care in general today, and also reporting a low mood, partially associated with a "bad dream" although his explanation of dream was hard to follow. Patient admits to urges of not wearing clothing, and denies urges to harm self. Will continue same medications, and [facility]. Suicidal Ideation: None Homicidal Ideation: None [facility] - Objective Physical Exam Vital Signs Vital Signs Date Time Temp Pulse Resp B/P (MAP) Pulse Ox O2 Delivery O2 Flow Rate FiO2 05/29/18 06:35 97.3 118 116/66 (83) 95 Room Air 05/26/18 12:00 16 Hematology Test 05/01/18 10:34 05/10/18 06:14 05/13/18 00:00 05/28/18 05:52 Free Thyroxine 1.52 ng/dl (0.78-2.19) Free Triiodothyronine 3.8 pg/mL (2.4-4.2) Red Blood Count 4.87 M/uL (4.00-5.60) Mean Corpuscular Volume 90.7 fL (80.0-96.0) Mean Corpuscular Hemoglobin 31.3 pg (26.0-33.0) Mean Corpuscular Hemoglobin Concent 34.5 g/dL (32.0-36.0) Red Cell Distribution Width 13.3 % (11.5-14.5) Mean Platelet Volume 8.5 fL (7.2-11.1) Neutrophils (%) (Auto) 70.9 % (39.4-72.5) Lymphocytes (%) (Auto) 18.5 % (17.6-49.6) Monocytes (%) (Auto) 8.9 % (4.1-12.4) Eosinophils (%) (Auto) 1.5 % (0.4-6.7) Basophils (%) (Auto) 0.2 % (0.3-1.4) Nucleated RBC Relative Count (auto) 0.0 /100WBC Neutrophils # (Auto) 6.8 K/uL (2.0-7.4) Lymphocytes # (Auto) 1.8 K/uL (1.3-3.6) Monocytes # (Auto) 0.9 K/uL (0.3-1.0) Eosinophils # (Auto) 0.1 K/uL (0.0-0.5) Basophils # (Auto) 0.0 K/uL (0.0-0.1) Nucleated RBC Absolute Count (auto) 0.00 K/uL Tuberculin Skin Test 0 mm Sodium Level 142 mmol/L (137-145) Potassium Level 4.4 mmol/L (3.5-5.0) Chloride Level 103 mmol/L (98-107) Carbon Dioxide Level 27 mmol/L (22-30) Blood Urea Nitrogen 18 mg/dl (9-21) Creatinine 1.00 mg/dl (0.66-1.25) Glomerular Filtration Rate Calc > 60.0 Random Glucose 95 mg/dl (75-110) Calcium Level 10.0 mg/dl (8.4-10.2) Total Bilirubin 0.6 mg/dl (0.2-1.3) Aspartate Amino Transf (AST/SGOT) 33 U/L (0-35) Alanine Aminotransferase (ALT/SGPT) 53 U/L (0-56) Alkaline Phosphatase 44 U/L (0-126) Total Protein 7.0 g/dl (6.3-8.2) Albumin 4.1 g/dl (3.5-5.0) Thyroid Stimulating Hormone (TSH) 5.84 uIU/ml (0.46-4.68) [place] Level 0.7 mmol/L (0.6-1.2) Chemistry Test 05/01/18 10:34 05/10/18 06:14 05/13/18 00:00 05/28/18 05:52 Free Thyroxine 1.52 ng/dl (0.78-2.19) Free Triiodothyronine 3.8 pg/mL (2.4-4.2) White Blood Count 9.5 k/uL (4.5-11.0) Red Blood Count 4.87 M/uL (4.00-5.60) Hemoglobin 15.3 g/dL (14.0-18.0) Hematocrit 44.2 % (42.0-52.0) Mean Corpuscular Volume 90.7 fL (80.0-96.0) Mean Corpuscular Hemoglobin 31.3 pg (26.0-33.0) Mean Corpuscular Hemoglobin Concent 34.5 g/dL (32.0-36.0) Red Cell Distribution Width 13.3 % (11.5-14.5) Platelet Count 218 K/uL (150-450) Mean Platelet Volume 8.5 fL (7.2-11.1) Neutrophils (%) (Auto) 70.9 % (39.4-72.5) Lymphocytes (%) (Auto) 18.5 % (17.6-49.6) Monocytes (%) (Auto) 8.9 % (4.1-12.4) Eosinophils (%) (Auto) 1.5 % (0.4-6.7) Basophils (%) (Auto) 0.2 % (0.3-1.4) Nucleated RBC Relative Count (auto) 0.0 /100WBC Neutrophils # (Auto) 6.8 K/uL (2.0-7.4) Lymphocytes # (Auto) 1.8 K/uL (1.3-3.6) Monocytes # (Auto) 0.9 K/uL (0.3-1.0) Eosinophils # (Auto) 0.1 K/uL (0.0-0.5) Basophils # (Auto) 0.0 K/uL (0.0-0.1) Nucleated RBC Absolute Count (auto) 0.00 K/uL Tuberculin Skin Test 0 mm Glomerular Filtration Rate Calc > 60.0 Calcium Level 10.0 mg/dl (8.4-10.2) Total Bilirubin 0.6 mg/dl (0.2-1.3) Aspartate Amino Transf (AST/SGOT) 33 U/L (0-35) Alanine Aminotransferase (ALT/SGPT) 53 U/L (0-56) Alkaline Phosphatase 44 U/L (0-126) Total Protein 7.0 g/dl (6.3-8.2) Albumin 4.1 g/dl (3.5-5.0) Thyroid Stimulating Hormone (TSH) 5.84 uIU/ml (0.46-4.68) [place] Level 0.7 mmol/L (0.6-1.2) Toxicology Test 05/28/18 05:52 [place] Level 0.7 mmol/L (0.6-1.2) Muscle Strength and Tone: WNL Gait and Station: Steady [facility] Medications Reviewed: Side Effects, Benefits of Medication, Risks Allergies Reviewed: Yes Mental Status Exam General Appearance: Casual, Well Groomed (mostly with absence of clothing ), Good Eye Contact, Cooperative, Polite, Good Interaction; No Unkept, No Tearful, No Psychomotor Agitation, No Psychomotor Retardation, No Bizarre Mannerisms, No Tics Speech: Clear, Spontaneous, Normal Rate, Normal Rhythm, Normal Volume, Normal Tone; No Garbled, No Rambling Mood: Dysthmic/Depressed (low mood today) Affect: Calm, Neutral; No Tearful, No Anxious, No Agitated Thought Process: Loose Associations (minimal) Thought Content: No Suicidal Ideation, No Homicidal Ideation; Delusions (ideas of reference likely ongoing, talks about the "environment communicates its feelings through voices"), Auditory Halllucinations (he is guarded about disclosing the extent, but does acknowledge); No Visual Hallucinations, No Thought Broadcasting; Ideas of Reference; No Obsessions, No Compulsions, No Other Sensorium: Clear Cognition: Alert & Oriented-Person, Alert & Oriented-Place, Alert & Oriented- Time, [place]-Brayzcet-Eitizcywm Memory: Immediate, Recent, Remote Intelligence: Average Insight Judgment: Poor (recent regression, to some degree. ) Result Diagram: 05/28/18 0552 [facility] Assessment and Plan Ttmr-go-[id number] Encounter Date: May 29, 2018 Znlr-mj-[id number] Encounter Time: 08:40 [facility] Plan: Necessary Precautions, Individual/Group Therapy, Admin/Titrate Meds, Educate Patient Tobacco Medications: Not Appropriate Condition Multpiple Antipsychotics Used: Yes Reason For >1 Antipsychotic: risperdal to help with delusions and mood stability. zyprexa as needed for acute chemical restraint. Problems: (1) Schizoaffective disorder, bipolar type Status: Chronic Condition 1. continue treatment. 2. no medication changes. GISSEL MIRZA MD May 29, 2018 12:13
[2018-05-29] MEDS: risperiDONE 1 MG TAB PO SCH (20:57)
[2018-05-29] MEDS: diphenhydrAMINE 25 MG CAP PO SCH (20:58)
[2018-05-29 21:34] VITALS: BP 113/94
[2018-05-30] MEDS: risperiDONE 1 MG TAB PO SCH ×2 (01:26→20:13)
[2018-05-30 05:16] VITALS: BP 139/98
[2018-05-30] MEDS: OMEGA-3 500 MG CAP PO SCH (08:16)
[2018-05-30] MEDS: LITHIUM CARBONATE 300 MG CAP PO SCH ×2 (08:17→20:12)
[2018-05-30] MEDS: CHOLECALCIFEROL 1000 UNIT TAB PO SCH (08:17)
[2018-05-30] MEDS: THIAMINE HCL 100 MG TAB PO SCH (08:17)
[2018-05-30] MEDS: FOLIC ACID 1 MG TAB PO SCH (08:17)
[2018-05-30] MEDS: MULTIVITAMINS TAB PO SCH (08:17)
--- NOTE | 2018-05-30 10:56 | BHS Progress Note ---
BHS - Subjective Progress Notes Subjective Patient cooperative today, notably refusing half his Risperdal last night, but then taking the remainder in the middle of the night as he was having poor sleep. Patient denies any concerns today, and would like to go for an escorted walk today. Patient denies any medical complaints, and has clothes on today. Suicidal Ideation: None Homicidal Ideation: None BHS - Objective Physical Exam Vital Signs Vital Signs Date Time Temp Pulse Resp B/P (MAP) Pulse Ox O2 Delivery O2 Flow Rate FiO2 05/30/18 05:16 97.4 96 139/98 (112) 96 Room Air 05/26/18 12:00 16 Hematology Test 05/01/18 10:34 05/10/18 06:14 05/13/18 00:00 05/28/18 05:52 Free Thyroxine 1.52 ng/dl (0.78-2.19) Free Triiodothyronine 3.8 pg/mL (2.4-4.2) Red Blood Count 4.87 M/uL (4.00-5.60) Mean Corpuscular Volume 90.7 fL (80.0-96.0) Mean Corpuscular Hemoglobin 31.3 pg (26.0-33.0) Mean Corpuscular Hemoglobin Concent 34.5 g/dL (32.0-36.0) Red Cell Distribution Width 13.3 % (11.5-14.5) Mean Platelet Volume 8.5 fL (7.2-11.1) Neutrophils (%) (Auto) 70.9 % (39.4-72.5) Lymphocytes (%) (Auto) 18.5 % (17.6-49.6) Monocytes (%) (Auto) 8.9 % (4.1-12.4) Eosinophils (%) (Auto) 1.5 % (0.4-6.7) Basophils (%) (Auto) 0.2 % (0.3-1.4) Nucleated RBC Relative Count (auto) 0.0 /100WBC Neutrophils # (Auto) 6.8 K/uL (2.0-7.4) Lymphocytes # (Auto) 1.8 K/uL (1.3-3.6) Monocytes # (Auto) 0.9 K/uL (0.3-1.0) Eosinophils # (Auto) 0.1 K/uL (0.0-0.5) Basophils # (Auto) 0.0 K/uL (0.0-0.1) Nucleated RBC Absolute Count (auto) 0.00 K/uL Tuberculin Skin Test 0 mm Sodium Level 142 mmol/L (137-145) Potassium Level 4.4 mmol/L (3.5-5.0) Chloride Level 103 mmol/L (98-107) Carbon Dioxide Level 27 mmol/L (22-30) Blood Urea Nitrogen 18 mg/dl (9-21) Creatinine 1.00 mg/dl (0.66-1.25) Glomerular Filtration Rate Calc > 60.0 Random Glucose 95 mg/dl (75-110) Calcium Level 10.0 mg/dl (8.4-10.2) Total Bilirubin 0.6 mg/dl (0.2-1.3) Aspartate Amino Transf (AST/SGOT) 33 U/L (0-35) Alanine Aminotransferase (ALT/SGPT) 53 U/L (0-56) Alkaline Phosphatase 44 U/L (0-126) Total Protein 7.0 g/dl (6.3-8.2) Albumin 4.1 g/dl (3.5-5.0) Thyroid Stimulating Hormone (TSH) 5.84 uIU/ml (0.46-4.68) [place] Level 0.7 mmol/L (0.6-1.2) Chemistry Test 05/01/18 10:34 05/10/18 06:14 05/13/18 00:00 05/28/18 05:52 Free Thyroxine 1.52 ng/dl (0.78-2.19) Free Triiodothyronine 3.8 pg/mL (2.4-4.2) White Blood Count 9.5 k/uL (4.5-11.0) Red Blood Count 4.87 M/uL (4.00-5.60) Hemoglobin 15.3 g/dL (14.0-18.0) Hematocrit 44.2 % (42.0-52.0) Mean Corpuscular Volume 90.7 fL (80.0-96.0) Mean Corpuscular Hemoglobin 31.3 pg (26.0-33.0) Mean Corpuscular Hemoglobin Concent 34.5 g/dL (32.0-36.0) Red Cell Distribution Width 13.3 % (11.5-14.5) Platelet Count 218 K/uL (150-450) Mean Platelet Volume 8.5 fL (7.2-11.1) Neutrophils (%) (Auto) 70.9 % (39.4-72.5) Lymphocytes (%) (Auto) 18.5 % (17.6-49.6) Monocytes (%) (Auto) 8.9 % (4.1-12.4) Eosinophils (%) (Auto) 1.5 % (0.4-6.7) Basophils (%) (Auto) 0.2 % (0.3-1.4) Nucleated RBC Relative Count (auto) 0.0 /100WBC Neutrophils # (Auto) 6.8 K/uL (2.0-7.4) Lymphocytes # (Auto) 1.8 K/uL (1.3-3.6) Monocytes # (Auto) 0.9 K/uL (0.3-1.0) Eosinophils # (Auto) 0.1 K/uL (0.0-0.5) Basophils # (Auto) 0.0 K/uL (0.0-0.1) Nucleated RBC Absolute Count (auto) 0.00 K/uL Tuberculin Skin Test 0 mm Glomerular Filtration Rate Calc > 60.0 Calcium Level 10.0 mg/dl (8.4-10.2) Total Bilirubin 0.6 mg/dl (0.2-1.3) Aspartate Amino Transf (AST/SGOT) 33 U/L (0-35) Alanine Aminotransferase (ALT/SGPT) 53 U/L (0-56) Alkaline Phosphatase 44 U/L (0-126) Total Protein 7.0 g/dl (6.3-8.2) Albumin 4.1 g/dl (3.5-5.0) Thyroid Stimulating Hormone (TSH) 5.84 uIU/ml (0.46-4.68) [place] Level 0.7 mmol/L (0.6-1.2) Toxicology Test 05/28/18 05:52 [place] Level 0.7 mmol/L (0.6-1.2) Muscle Strength and Tone: WNL Gait and Station: Steady S Medications Reviewed: Side Effects, Benefits of Medication, Risks Allergies Reviewed: Yes Mental Status Exam General Appearance: Casual, Well Groomed (mostly with absence of clothing ), Good Eye Contact, Cooperative, Polite, Good Interaction; No Unkept, No Tearful, No Psychomotor Agitation, No Psychomotor Retardation, No Bizarre Mannerisms, No Tics Speech: Clear, Spontaneous, Normal Rate, Normal Rhythm, Normal Volume, Normal Tone; No Garbled, No Rambling Mood: Dysthmic/Depressed (low mood today, improved some from yesterday. ) Affect: Calm, Neutral; No Tearful, No Anxious, No Agitated Thought Process: Loose Associations (minimal) Thought Content: No Suicidal Ideation, No Homicidal Ideation; Delusions (ideas of reference likely ongoing, talks about the "environment communicates its feelings through voices"), Auditory Halllucinations (he is guarded about disclosing the extent, but does acknowledge); No Visual Hallucinations, No Thought Broadcasting; Ideas of Reference; No Obsessions, No Compulsions, No Other Sensorium: Clear Cognition: Alert & Oriented-Person, Alert & Oriented-Place, Alert & Oriented- Time, Lnpkp-Pvajxhfw-Vfmnswdgy Memory: Immediate, Recent, Remote Intelligence: Average Insight Judgment: Poor (recent regression, to some degree. ) Result Diagram: 05/28/18 0552 [facility] Assessment and Plan Srzh-pl-Qqye Encounter Date: May 30, 2018 Addf-uu-Xjub Encounter Time: 10:30 [facility] Plan: Necessary Precautions, Individual/Group Therapy, Admin/Titrate Meds, Educate Patient Tobacco Medications: Not Appropriate Condition Multpiple Antipsychotics Used: Yes Reason For >1 Antipsychotic: risperdal to help with delusions and mood stability. zyprexa as needed for acute chemical restraint. Problems: (1) Schizoaffective disorder, bipolar type Status: Chronic Condition 1. continue treatment. [facility]. GISSEL MIRZA MD May 30, 2018 10:56
[2018-05-30 14:42] VITALS: BP 132/98
[2018-05-30] MEDS: diphenhydrAMINE 25 MG CAP PO SCH (20:13)
[2018-05-31 06:29] VITALS: BP 101/57
[2018-05-31] MEDS: LITHIUM CARBONATE 300 MG CAP PO SCH (08:03)
[2018-05-31] MEDS: FOLIC ACID 1 MG TAB PO SCH (08:03)
[2018-05-31] MEDS: THIAMINE HCL 100 MG TAB PO SCH (08:04)
[2018-05-31] MEDS: OMEGA-3 500 MG CAP PO SCH (08:04)
[2018-05-31] MEDS: CHOLECALCIFEROL 1000 UNIT TAB PO SCH (08:04)
[2018-05-31] MEDS: MULTIVITAMINS TAB PO SCH (08:04)
--- NOTE | 2018-05-31 09:05 | BHS Progress Note ---
BHS - Subjective Progress Notes Subjective Patient cooperative on the unit, remains cooperative on escorted walks outside of hospital. Patient complaining of fogginess and some lethargy which he attributes to Risperdal. Will decrease risperdal to 3 mg. QHS and administer earlier in the evening. Will continue to encourage exercise, and will have lithium level and routine lab work scheduled for AM tomorrow. Patient denies any other concerns psychiatrically or medically today. Suicidal Ideation: None Homicidal Ideation: None S - Objective Physical Exam Vital Signs Vital Signs Date Time Temp Pulse Resp B/P (MAP) Pulse Ox O2 Delivery O2 Flow Rate FiO2 05/31/18 06:29 97.2 61 101/57 (72) 93 Room Air Hematology Test 05/01/18 10:34 05/10/18 06:14 05/13/18 00:00 05/28/18 05:52 Free Thyroxine 1.52 ng/dl (0.78-2.19) Free Triiodothyronine 3.8 pg/mL (2.4-4.2) Red Blood Count 4.87 M/uL (4.00-5.60) Mean Corpuscular Volume 90.7 fL (80.0-96.0) Mean Corpuscular Hemoglobin 31.3 pg (26.0-33.0) Mean Corpuscular Hemoglobin Concent 34.5 g/dL (32.0-36.0) Red Cell Distribution Width 13.3 % (11.5-14.5) Mean Platelet Volume 8.5 fL (7.2-11.1) Neutrophils (%) (Auto) 70.9 % (39.4-72.5) Lymphocytes (%) (Auto) 18.5 % (17.6-49.6) Monocytes (%) (Auto) 8.9 % (4.1-12.4) Eosinophils (%) (Auto) 1.5 % (0.4-6.7) Basophils (%) (Auto) 0.2 % (0.3-1.4) Nucleated RBC Relative Count (auto) 0.0 /100WBC Neutrophils # (Auto) 6.8 K/uL (2.0-7.4) Lymphocytes # (Auto) 1.8 K/uL (1.3-3.6) Monocytes # (Auto) 0.9 K/uL (0.3-1.0) Eosinophils # (Auto) 0.1 K/uL (0.0-0.5) Basophils # (Auto) 0.0 K/uL (0.0-0.1) Nucleated RBC Absolute Count (auto) 0.00 K/uL Tuberculin Skin Test 0 mm Sodium Level 142 mmol/L (137-145) Potassium Level 4.4 mmol/L (3.5-5.0) Chloride Level 103 mmol/L (98-107) Carbon Dioxide Level 27 mmol/L (22-30) Blood Urea Nitrogen 18 mg/dl (9-21) Creatinine 1.00 mg/dl (0.66-1.25) Glomerular Filtration Rate Calc > 60.0 Random Glucose 95 mg/dl (75-110) Calcium Level 10.0 mg/dl (8.4-10.2) Total Bilirubin 0.6 mg/dl (0.2-1.3) Aspartate Amino Transf (AST/SGOT) 33 U/L (0-35) Alanine Aminotransferase (ALT/SGPT) 53 U/L (0-56) Alkaline Phosphatase 44 U/L (0-126) Total Protein 7.0 g/dl (6.3-8.2) Albumin 4.1 g/dl (3.5-5.0) Thyroid Stimulating Hormone (TSH) 5.84 uIU/ml (0.46-4.68) [place] Level 0.7 mmol/L (0.6-1.2) Chemistry Test 05/01/18 10:34 05/10/18 06:14 05/13/18 00:00 05/28/18 05:52 Free Thyroxine 1.52 ng/dl (0.78-2.19) Free Triiodothyronine 3.8 pg/mL (2.4-4.2) White Blood Count 9.5 k/uL (4.5-11.0) Red Blood Count 4.87 M/uL (4.00-5.60) Hemoglobin 15.3 g/dL (14.0-18.0) Hematocrit 44.2 % (42.0-52.0) Mean Corpuscular Volume 90.7 fL (80.0-96.0) Mean Corpuscular Hemoglobin 31.3 pg (26.0-33.0) Mean Corpuscular Hemoglobin Concent 34.5 g/dL (32.0-36.0) Red Cell Distribution Width 13.3 % (11.5-14.5) Platelet Count 218 K/uL (150-450) Mean Platelet Volume 8.5 fL (7.2-11.1) Neutrophils (%) (Auto) 70.9 % (39.4-72.5) Lymphocytes (%) (Auto) 18.5 % (17.6-49.6) Monocytes (%) (Auto) 8.9 % (4.1-12.4) Eosinophils (%) (Auto) 1.5 % (0.4-6.7) Basophils (%) (Auto) 0.2 % (0.3-1.4) Nucleated RBC Relative Count (auto) 0.0 /100WBC Neutrophils # (Auto) 6.8 K/uL (2.0-7.4) Lymphocytes # (Auto) 1.8 K/uL (1.3-3.6) Monocytes # (Auto) 0.9 K/uL (0.3-1.0) Eosinophils # (Auto) 0.1 K/uL (0.0-0.5) Basophils # (Auto) 0.0 K/uL (0.0-0.1) Nucleated RBC Absolute Count (auto) 0.00 K/uL Tuberculin Skin Test 0 mm Glomerular Filtration Rate Calc > 60.0 Calcium Level 10.0 mg/dl (8.4-10.2) Total Bilirubin 0.6 mg/dl (0.2-1.3) Aspartate Amino Transf (AST/SGOT) 33 U/L (0-35) Alanine Aminotransferase (ALT/SGPT) 53 U/L (0-56) Alkaline Phosphatase 44 U/L (0-126) Total Protein 7.0 g/dl (6.3-8.2) Albumin 4.1 g/dl (3.5-5.0) Thyroid Stimulating Hormone (TSH) 5.84 uIU/ml (0.46-4.68) [place] Level 0.7 mmol/L (0.6-1.2) Toxicology Test 05/28/18 05:52 [place] Level 0.7 mmol/L (0.6-1.2) Muscle Strength and Tone: WNL Gait and Station: Steady [facility] Medications Reviewed: Side Effects, Benefits of Medication, Risks Allergies Reviewed: Yes Mental Status Exam General Appearance: Casual, Well Groomed (at times, improved), Good Eye Contact, Cooperative, Polite, Good Interaction; No Unkept, No Tearful, No Psychomotor Agitation, No Psychomotor Retardation, No Bizarre Mannerisms, No Tics Speech: Clear, Spontaneous, Normal Rate, Normal Rhythm, Normal Volume, Normal Tone; No Garbled, No Rambling Mood: Dysthmic/Depressed (some lethargy and low mood today. ) Affect: Calm, Neutral; No Tearful, No Anxious, No Agitated Thought Process: Loose Associations (minimal) Thought Content: No Suicidal Ideation, No Homicidal Ideation; Delusions (ideas of reference likely ongoing, talks about the "environment communicates its feelings through voices"), Auditory Halllucinations (he is guarded about disclosing the extent, but does acknowledge); No Visual Hallucinations, No Thought Broadcasting; Ideas of Reference; No Obsessions, No Compulsions, No Other Sensorium: Clear Cognition: Alert & Oriented-Person, Alert & Oriented-Place, Alert & Oriented- Time, Erigi-Cpvqspcr-Mumngfwoj Memory: Immediate, Recent, Remote Intelligence: Average Insight Judgment: Poor (recent regression, to some degree. ) Result Diagram: 05/28/18 0552 [facility] Assessment and Plan Icna-zk-Ceyy Encounter Date: May 31, 2018 Aocq-qt-Hagi Encounter Time: 08:40 [facility] Plan: Necessary Precautions, Individual/Group Therapy, Admin/Titrate Meds, Educate Patient Tobacco Medications: Not Appropriate Condition Multpiple Antipsychotics Used: Yes Reason For >1 Antipsychotic: risperdal to help with delusions and mood stability. zyprexa as needed for acute chemical restraint. Problems: (1) Schizoaffective disorder, bipolar type Status: Chronic Condition 1. decrease risperdal to 3mg QHS 2. labwork in AM. 3. await [facility] hospital transfer, and placement in shelter. GISSEL MIRZA MD May 31, 2018 09:05
[2018-05-31 13:09] VITALS: BP 116/60
[2018-05-31] MEDS ORDERED: LITHIUM CARBONATE 300 MG CAP PO SCH (17:00)
[2018-05-31] MEDS: risperiDONE 1 MG TAB PO SCH (19:35)
[2018-05-31] MEDS: diphenhydrAMINE 25 MG CAP PO SCH (19:35)
[2018-05-31 21:38] VITALS: BP 115/73
[2018-06-01 06:47] VITALS: BP 93/44
[2018-06-01 06:57] LABS: PLATELET COUNT, AUTOMATED 261 K/uL (150-450)
[2018-06-01] MEDS: OMEGA-3 500 MG CAP PO SCH (08:15)
[2018-06-01] MEDS: LITHIUM CARBONATE 300 MG CAP PO SCH ×2 (08:16→19:42)
[2018-06-01] MEDS: THIAMINE HCL 100 MG TAB PO SCH (08:16)
[2018-06-01] MEDS: FOLIC ACID 1 MG TAB PO SCH (08:16)
[2018-06-01] MEDS: MULTIVITAMINS TAB PO SCH (08:16)
[2018-06-01] MEDS: CHOLECALCIFEROL 1000 UNIT TAB PO SCH (08:16)
--- NOTE | 2018-06-01 10:59 | BHS Progress Note ---
S - Subjective Progress Notes Subjective "I'm a tad bit excited." Discussion regarding possibility of detention placement versus [facility] Denies depression, anxiety or anger Denies mood swings, AVH Denies urge for harm, SI/HI Continue [place] and Risperidone Suicidal Ideation: None Homicidal Ideation: None [facility] - Objective Physical Exam Vital Signs Allergies Coded Allergies No Known Drug Allergies (Unverified04/30/18) Deferred Laboratory Tests 06/01/18 06:50 Laboratory - CBC/BMP Diagrams 06/01/18 06:50 Muscle Strength and Tone: WNL Gait and Station: Steady [facility] Medications Reviewed: Side Effects, Benefits of Medication, Risks Allergies Reviewed: Yes Mental Status Exam General Appearance: Casual, Well Groomed (at times, improved), Good Eye Contact, Cooperative, Polite, Good Interaction; No Unkept, No Tearful, No Psychomotor Agitation, No Psychomotor Retardation, No Bizarre Mannerisms, No Tics Speech: Clear, Spontaneous, Normal Rate, Normal Rhythm, Normal Volume, Normal Tone; No Garbled, No Rambling Mood: No Dysthmic/Depressed (denies depression); Euthymic Affect: Calm, Neutral; No Tearful, No Anxious, No Agitated Thought Process: No Loose Associations (minimal) Thought Content: No Suicidal Ideation, No Homicidal Ideation; Delusions (ideas of reference likely ongoing, talks about the "environment communicates its feelings through voices"), Auditory Halllucinations (he is guarded about disclosing the extent, but does acknowledge); No Visual Hallucinations, No Thought Broadcasting; Ideas of Reference; No Obsessions, No Compulsions, No Other Sensorium: Clear Cognition: Alert & Oriented-Person, Alert & Oriented-Place, Alert & Oriented- Time, Jhspp-Jbuozfnr-Ojcspifel Memory: Immediate, Recent, Remote Intelligence: Average Insight Judgment: Poor (recent regression, to some degree. ) Result Diagram: 06/01/18 0650 06/01/18 0650 Lab Vital Signs Date Time Temp Pulse Resp B/P (MAP) Pulse Ox O2 Delivery O2 Flow Rate FiO2 06/01/18 06:47 97.2 53 93/44 (60) 95 Room Air 05/31/18 13:09 16 [facility] Assessment and Plan Jpix-dp-Zhds Encounter Date: Jun 01, 2018 Kkjx-mx-Syrp Encounter Time: 10:57 [facility] Plan: Necessary Precautions, Individual/Group Therapy, Admin/Titrate Meds, Educate Patient Tobacco Medications: Not Appropriate Condition Multpiple Antipsychotics Used: Yes Reason For >1 Antipsychotic: risperdal to help with delusions and mood stability. zyprexa as needed for acute chemical restraint. Problems: (1) Schizoaffective disorder, bipolar type Status: Chronic (2) Hallucinogen use with hallucinogen-induced disorder Status: Acute Condition Continue current medications and treatment Maintain precautions Encourage out of bed and increased activity daytime hours ANKIT LEES NP Jun 01, 2018 10:59
[2018-06-01 14:30] VITALS: BP 124/76
[2018-06-01] MEDS: diphenhydrAMINE 25 MG CAP PO SCH (19:41)
[2018-06-01] MEDS: risperiDONE 1 MG TAB PO SCH (19:43)
[2018-06-01 21:40] VITALS: BP 121/76
[2018-06-02 05:54] VITALS: BP 89/44
[2018-06-02] MEDS: CHOLECALCIFEROL 1000 UNIT TAB PO SCH (08:38)
[2018-06-02] MEDS: FOLIC ACID 1 MG TAB PO SCH (08:38)
[2018-06-02] MEDS: THIAMINE HCL 100 MG TAB PO SCH (08:38)
[2018-06-02] MEDS: OMEGA-3 500 MG CAP PO SCH (08:38)
[2018-06-02] MEDS: LITHIUM CARBONATE 300 MG CAP PO SCH ×2 (08:38→19:39)
[2018-06-02] MEDS: MULTIVITAMINS TAB PO SCH (08:38)
--- NOTE | 2018-06-02 10:13 | BHS Progress Note ---
[facility] - Subjective Progress Notes Subjective "I'm doing good." Stable on [place] and Risperidone, denies side effects "Denies depression, anxiety, anger Denies AVH, denies mood swings Keeping clothes on, denies urge for gauging eyes or self harm behavior Discuss possibility of halfway placement at [facility] versus [facility] Suicidal Ideation: None Homicidal Ideation: None [facility] - Objective Physical Exam Vital Signs Vital Signs Date Time Temp Pulse Resp B/P (MAP) Pulse Ox O2 Delivery O2 Flow Rate FiO2 06/02/18 05:54 96.7 52 89/44 (59) 94 Room Air 06/01/18 14:30 16 Muscle Strength and Tone: WNL Gait and Station: Steady [facility] Medications Reviewed: Side Effects, Benefits of Medication, Risks Allergies Reviewed: Yes Mental Status Exam General Appearance: Casual, Well Groomed (at times, improved), Good Eye Contact, Cooperative, Polite, Good Interaction; No Unkept, No Tearful, No Psychomotor Agitation, No Psychomotor Retardation, No Bizarre Mannerisms, No Tics Speech: Clear, Spontaneous, Normal Rate, Normal Rhythm, Normal Volume, Normal Tone; No Garbled, No Rambling Mood: No Dysthmic/Depressed (denies depression); Euthymic Affect: Calm, Neutral; No Tearful, No Anxious, No Agitated Thought Process: No Loose Associations (minimal) Thought Content: No Suicidal Ideation, No Homicidal Ideation; Delusions (ideas of reference likely ongoing, talks about the "environment communicates its feelings through voices"), Auditory Halllucinations (he is guarded about disclosing the extent, but does acknowledge); No Visual Hallucinations, No Thought Broadcasting; Ideas of Reference; No Obsessions, No Compulsions, No Other Sensorium: Clear Cognition: Alert & Oriented-Person, Alert & Oriented-Place, Alert & Oriented- Time, Hkotn-Zldbwlro-Gjunpynug Memory: Immediate, Recent, Remote Intelligence: Average Insight Judgment: Poor Result Diagram: 06/01/1850 06/01/1850 [facility] Assessment and Plan Yyav-va-Bkgo Encounter Date: Jun 02, 2018 Fprm-me-Sjte Encounter Time: 10:11 [facility] Plan: Necessary Precautions, Individual/Group Therapy, Admin/Titrate Meds, Educate Patient Tobacco Medications: Not Appropriate Condition Multpiple Antipsychotics Used: Yes Reason For >1 Antipsychotic: risperdal to help with delusions and mood stability. zyprexa as needed for acute chemical restraint. Problems: (1) Schizoaffective disorder, bipolar type Status: Chronic (2) Hallucinogen use with hallucinogen-induced disorder Status: Acute Condition Continue Risperidone, [place] Continue current therapy and medications Maintain precautions 06/01/18 lithium level 0,8 ANKIT LEES NP Jun 02, 2018 10:13
[2018-06-02 13:35] VITALS: BP 112/72
[2018-06-02] MEDS: risperiDONE 1 MG TAB PO SCH (19:39)
[2018-06-02] MEDS: diphenhydrAMINE 25 MG CAP PO SCH (19:39)
[2018-06-03 06:08] VITALS: BP 94/50
[2018-06-03] MEDS: THIAMINE HCL 100 MG TAB PO SCH (08:40)
[2018-06-03] MEDS: FOLIC ACID 1 MG TAB PO SCH (08:40)
[2018-06-03] MEDS: OMEGA-3 500 MG CAP PO SCH (08:40)
[2018-06-03] MEDS: CHOLECALCIFEROL 1000 UNIT TAB PO SCH (08:40)
[2018-06-03] MEDS: LITHIUM CARBONATE 300 MG CAP PO SCH ×2 (08:40→18:57)
[2018-06-03] MEDS: MULTIVITAMINS TAB PO SCH (08:40)
--- NOTE | 2018-06-03 09:09 | BHS Progress Note ---
S - Subjective Progress Notes Subjective Patient remains cooperative in treatment team meeting with staff and family, communicating well with retirement staff on phone. Appetite and sleep good. Patient denies any psychiatric or medical concerns. At this point will stop consta, due to cost concerns at retirement, and will resume 4mg Risperdal orally at night. will continue lithium at current dose. No other concerns. Suicidal Ideation: None Homicidal Ideation: None [facility] - Objective Physical Exam Vital Signs Hematology Test 05/01/18 10:34 05/13/18 00:00 05/28/18 05:52 06/01/18 06:50 Free Thyroxine 1.52 ng/dl (0.78-2.19) Free Triiodothyronine 3.8 pg/mL (2.4-4.2) Tuberculin Skin Test 0 mm Thyroid Stimulating Hormone (TSH) 5.84 uIU/ml (0.46-4.68) Red Blood Count 4.80 M/uL (4.00-5.60) Mean Corpuscular Volume 91.7 fL (80.0-96.0) Mean Corpuscular Hemoglobin 31.4 pg (26.0-33.0) Mean Corpuscular Hemoglobin Concent 34.2 g/dL (32.0-36.0) Red Cell Distribution Width 13.5 % (11.5-14.5) Mean Platelet Volume 7.8 fL (7.2-11.1) Neutrophils (%) (Auto) 63.6 % (39.4-72.5) Lymphocytes (%) (Auto) 24.2 % (17.6-49.6) Monocytes (%) (Auto) 9.4 % (4.1-12.4) Eosinophils (%) (Auto) 2.4 % (0.4-6.7) Basophils (%) (Auto) 0.4 % (0.3-1.4) Nucleated RBC Relative Count (auto) 0.0 /100WBC Neutrophils # (Auto) 4.9 K/uL (2.0-7.4) Lymphocytes # (Auto) 1.9 K/uL (1.3-3.6) Monocytes # (Auto) 0.7 K/uL (0.3-1.0) Eosinophils # (Auto) 0.2 K/uL (0.0-0.5) Basophils # (Auto) 0.0 K/uL (0.0-0.1) Nucleated RBC Absolute Count (auto) 0.00 K/uL Sodium Level 139 mmol/L (137-145) Potassium Level 4.3 mmol/L (3.5-5.0) Chloride Level 102 mmol/L (98-107) Carbon Dioxide Level 27 mmol/L (22-30) Blood Urea Nitrogen 21 mg/dl (9-21) Creatinine 1.00 mg/dl (0.66-1.25) Glomerular Filtration Rate Calc > 60.0 Random Glucose 91 mg/dl (75-110) Calcium Level 9.4 mg/dl (8.4-10.2) Total Bilirubin 0.6 mg/dl (0.2-1.3) Aspartate Amino Transf (AST/SGOT) 17 U/L (0-35) Alanine Aminotransferase (ALT/SGPT) 35 U/L (0-56) Alkaline Phosphatase 40 U/L (0-126) Total Protein 6.8 g/dl (6.3-8.2) Albumin 4.1 g/dl (3.5-5.0) [place] Level 0.8 mmol/L (0.6-1.2) Chemistry Test 05/01/18 10:34 05/13/18 00:00 05/28/18 05:52 06/01/18 06:50 Free Thyroxine 1.52 ng/dl (0.78-2.19) Free Triiodothyronine 3.8 pg/mL (2.4-4.2) Tuberculin Skin Test 0 mm Thyroid Stimulating Hormone (TSH) 5.84 uIU/ml (0.46-4.68) White Blood Count 7.6 k/uL (4.5-11.0) Red Blood Count 4.80 M/uL (4.00-5.60) Hemoglobin 15.1 g/dL (14.0-18.0) Hematocrit 44.0 % (42.0-52.0) Mean Corpuscular Volume 91.7 fL (80.0-96.0) Mean Corpuscular Hemoglobin 31.4 pg (26.0-33.0) Mean Corpuscular Hemoglobin Concent 34.2 g/dL (32.0-36.0) Red Cell Distribution Width 13.5 % (11.5-14.5) Platelet Count 261 K/uL (150-450) Mean Platelet Volume 7.8 fL (7.2-11.1) Neutrophils (%) (Auto) 63.6 % (39.4-72.5) Lymphocytes (%) (Auto) 24.2 % (17.6-49.6) Monocytes (%) (Auto) 9.4 % (4.1-12.4) Eosinophils (%) (Auto) 2.4 % (0.4-6.7) Basophils (%) (Auto) 0.4 % (0.3-1.4) Nucleated RBC Relative Count (auto) 0.0 /100WBC Neutrophils # (Auto) 4.9 K/uL (2.0-7.4) Lymphocytes # (Auto) 1.9 K/uL (1.3-3.6) Monocytes # (Auto) 0.7 K/uL (0.3-1.0) Eosinophils # (Auto) 0.2 K/uL (0.0-0.5) Basophils # (Auto) 0.0 K/uL (0.0-0.1) Nucleated RBC Absolute Count (auto) 0.00 K/uL Glomerular Filtration Rate Calc > 60.0 Calcium Level 9.4 mg/dl (8.4-10.2) Total Bilirubin 0.6 mg/dl (0.2-1.3) Aspartate Amino Transf (AST/SGOT) 17 U/L (0-35) Alanine Aminotransferase (ALT/SGPT) 35 U/L (0-56) Alkaline Phosphatase 40 U/L (0-126) Total Protein 6.8 g/dl (6.3-8.2) Albumin 4.1 g/dl (3.5-5.0) [place] Level 0.8 mmol/L (0.6-1.2) Toxicology Test 06/01/18 06:50 [place] Level 0.8 mmol/L (0.6-1.2) Vital Signs Date Time Temp Pulse Resp B/P (MAP) Pulse Ox O2 Delivery O2 Flow Rate FiO2 06/03/18 06:08 97.3 56 94/50 (65) 95 Room Air 06/02/18 13:35 16 Muscle Strength and Tone: WNL Gait and Station: Steady S Medications Reviewed: Side Effects, Benefits of Medication, Risks Allergies Reviewed: Yes Mental Status Exam General Appearance: Casual, Well Groomed (at times, improved), Good Eye Contact, Cooperative, Polite, Good Interaction; No Unkept, No Tearful, No Psychomotor Agitation, No Psychomotor Retardation, No Bizarre Mannerisms, No Ti cs Speech: Clear, Spontaneous, Normal Rate, Normal Rhythm, Normal Volume, Normal Tone; No Garbled, No Rambling Mood: No Dysthmic/Depressed (denies depression); Euthymic Affect: Calm, Neutral; No Tearful, No Anxious, No Agitated Thought Process: No Loose Associations (minimal) Thought Content: No Suicidal Ideation, No Homicidal Ideation; Delusions (likely still present, but minimal ), Auditory Halllucinations (patient denies, but likely minimal still present.); No Visual Hallucinations, No Thought Broadcasting; Ideas of Reference; No Obsessions, No Compulsions, No Other Sensorium: Clear Cognition: Alert & Oriented-Person, Alert & Oriented-Place, Alert & Oriented- Time, Tpvib-Ihwilehr-Mutwpymnj Memory: Immediate, Recent, Remote Intelligence: Average Insight Judgment: Poor Result Diagram: 06/01/18 0650 06/01/18 0650 [facility] Assessment and Plan Fmkh-pb-Arbc Encounter Date: Jun 03, 2018 Nxkz-ly-Fhoo Encounter Time: 08:40 [facility] Plan: Necessary Precautions, Individual/Group Therapy, Admin/Titrate Meds, Educate Patient Tobacco Medications: Not Appropriate Condition Multpiple Antipsychotics Used: Yes Reason For >1 Antipsychotic: risperdal to help with delusions and mood stability. zyprexa as needed for acute chemical restraint. Problems: (1) Schizoaffective disorder, bipolar type Status: Chronic Condition 1. continue treatment. 2. look into retirement placement potentially this week. 3. stop consta. 4. increase risperdal to 4mg Qday at 1700 hours. GISSEL MIRZA MD Jun 03, 2018 09:09
[2018-06-03 13:40] VITALS: BP 110/65
[2018-06-03] MEDS: diphenhydrAMINE 25 MG CAP PO SCH (18:57)
[2018-06-03] MEDS: risperiDONE 1 MG TAB PO SCH (18:58)
[2018-06-03 21:41] VITALS: BP 108/58
[2018-06-04 06:19] VITALS: BP 79/49
[2018-06-04] MEDS: FOLIC ACID 1 MG TAB PO SCH (08:25)
[2018-06-04] MEDS: OMEGA-3 500 MG CAP PO SCH (08:25)
[2018-06-04] MEDS: LITHIUM CARBONATE 300 MG CAP PO SCH ×2 (08:26→19:09)
[2018-06-04] MEDS: MULTIVITAMINS TAB PO SCH (08:26)
[2018-06-04] MEDS: CHOLECALCIFEROL 1000 UNIT TAB PO SCH (08:26)
[2018-06-04] MEDS: THIAMINE HCL 100 MG TAB PO SCH (08:26)
--- NOTE | 2018-06-04 09:35 | BHS Progress Note ---
BHS - Subjective Progress Notes Subjective Patient continues to demonstrate good mood, and denies any hallucinations or excessive intrusive thoughts today. Patient is looking forward to potentially being transferred to senior care this week. Sleep and appetite good. No other concerns. Will continue to await placement. Suicidal Ideation: None Homicidal Ideation: None S - Objective Physical Exam Vital Signs Vital Signs Date Time Temp Pulse Resp B/P (MAP) Pulse Ox O2 Delivery O2 Flow Rate FiO2 06/04/18 06:19 97.9 52 79/49 (59) 93 Room Air 06/02/18 13:35 16 Hematology Test 05/01/18 10:34 05/13/18 00:00 05/28/18 05:52 06/01/18 06:50 Free Thyroxine 1.52 ng/dl (0.78-2.19) Free Triiodothyronine 3.8 pg/mL (2.4-4.2) Tuberculin Skin Test 0 mm Thyroid Stimulating Hormone (TSH) 5.84 uIU/ml (0.46-4.68) Red Blood Count 4.80 M/uL (4.00-5.60) Mean Corpuscular Volume 91.7 fL (80.0-96.0) Mean Corpuscular Hemoglobin 31.4 pg (26.0-33.0) Mean Corpuscular Hemoglobin Concent 34.2 g/dL (32.0-36.0) Red Cell Distribution Width 13.5 % (11.5-14.5) Mean Platelet Volume 7.8 fL (7.2-11.1) Neutrophils (%) (Auto) 63.6 % (39.4-72.5) Lymphocytes (%) (Auto) 24.2 % (17.6-49.6) Monocytes (%) (Auto) 9.4 % (4.1-12.4) Eosinophils (%) (Auto) 2.4 % (0.4-6.7) Basophils (%) (Auto) 0.4 % (0.3-1.4) Nucleated RBC Relative Count (auto) 0.0 /100WBC Neutrophils # (Auto) 4.9 K/uL (2.0-7.4) Lymphocytes # (Auto) 1.9 K/uL (1.3-3.6) Monocytes # (Auto) 0.7 K/uL (0.3-1.0) Eosinophils # (Auto) 0.2 K/uL (0.0-0.5) Basophils # (Auto) 0.0 K/uL (0.0-0.1) Nucleated RBC Absolute Count (auto) 0.00 K/uL Sodium Level 139 mmol/L (137-145) Potassium Level 4.3 mmol/L (3.5-5.0) Chloride Level 102 mmol/L (98-107) Carbon Dioxide Level 27 mmol/L (22-30) Blood Urea Nitrogen 21 mg/dl (9-21) Creatinine 1.00 mg/dl (0.66-1.25) Glomerular Filtration Rate Calc > 60.0 Random Glucose 91 mg/dl (75-110) Calcium Level 9.4 mg/dl (8.4-10.2) Total Bilirubin 0.6 mg/dl (0.2-1.3) Aspartate Amino Transf (AST/SGOT) 17 U/L (0-35) Alanine Aminotransferase (ALT/SGPT) 35 U/L (0-56) Alkaline Phosphatase 40 U/L (0-126) Total Protein 6.8 g/dl (6.3-8.2) Albumin 4.1 g/dl (3.5-5.0) [place] Level 0.8 mmol/L (0.6-1.2) Chemistry Test 05/01/18 10:34 05/13/18 00:00 05/28/18 05:52 06/01/18 06:50 Free Thyroxine 1.52 ng/dl (0.78-2.19) Free Triiodothyronine 3.8 pg/mL (2.4-4.2) Tuberculin Skin Test 0 mm Thyroid Stimulating Hormone (TSH) 5.84 uIU/ml (0.46-4.68) White Blood Count 7.6 k/uL (4.5-11.0) Red Blood Count 4.80 M/uL (4.00-5.60) Hemoglobin 15.1 g/dL (14.0-18.0) Hematocrit 44.0 % (42.0-52.0) Mean Corpuscular Volume 91.7 fL (80.0-96.0) Mean Corpuscular Hemoglobin 31.4 pg (26.0-33.0) Mean Corpuscular Hemoglobin Concent 34.2 g/dL (32.0-36.0) Red Cell Distribution Width 13.5 % (11.5-14.5) Platelet Count 261 K/uL (150-450) Mean Platelet Volume 7.8 fL (7.2-11.1) Neutrophils (%) (Auto) 63.6 % (39.4-72.5) Lymphocytes (%) (Auto) 24.2 % (17.6-49.6) Monocytes (%) (Auto) 9.4 % (4.1-12.4) Eosinophils (%) (Auto) 2.4 % (0.4-6.7) Basophils (%) (Auto) 0.4 % (0.3-1.4) Nucleated RBC Relative Count (auto) 0.0 /100WBC Neutrophils # (Auto) 4.9 K/uL (2.0-7.4) Lymphocytes # (Auto) 1.9 K/uL (1.3-3.6) Monocytes # (Auto) 0.7 K/uL (0.3-1.0) Eosinophils # (Auto) 0.2 K/uL (0.0-0.5) Basophils # (Auto) 0.0 K/uL (0.0-0.1) Nucleated RBC Absolute Count (auto) 0.00 K/uL Glomerular Filtration Rate Calc > 60.0 Calcium Level 9.4 mg/dl (8.4-10.2) Total Bilirubin 0.6 mg/dl (0.2-1.3) Aspartate Amino Transf (AST/SGOT) 17 U/L (0-35) Alanine Aminotransferase (ALT/SGPT) 35 U/L (0-56) Alkaline Phosphatase 40 U/L (0-126) Total Protein 6.8 g/dl (6.3-8.2) Albumin 4.1 g/dl (3.5-5.0) [place] Level 0.8 mmol/L (0.6-1.2) Toxicology Test 06/01/18 06:50 [place] Level 0.8 mmol/L (0.6-1.2) Muscle Strength and Tone: WNL Gait and Station: Steady S Medications Reviewed: Side Effects, Benefits of Medication, Risks Allergies Reviewed: Yes Mental Status Exam General Appearance: Casual, Well Groomed (at times, improved), Good Eye Contact, Cooperative, Polite, Good Interaction; No Unkept, No Tearful, No Psychomotor Agitation, No Psychomotor Retardation, No Bizarre Mannerisms, No Tic s Speech: Clear, Spontaneous, Normal Rate, Normal Rhythm, Normal Volume, Normal Tone; No Garbled, No Rambling Mood: No Dysthmic/Depressed (denies depression); Euthymic Affect: Calm, Neutral; No Tearful, No Anxious, No Agitated Thought Process: No Loose Associations (minimal) Thought Content: No Suicidal Ideation, No Homicidal Ideation; Delusions (likely still present, but minimal ), Auditory Halllucinations (patient denies, but likely minimal still present.); No Visual Hallucinations, No Thought Broadcasting; Ideas of Reference; No Obsessions, No Compulsions, No Other Sensorium: Clear Cognition: Alert & Oriented-Person, Alert & Oriented-Place, Alert & Oriented- Time, Molpi-Kitgwekt-Grcohecmi Memory: Immediate, Recent, Remote Intelligence: Average Insight Judgment: Poor Result Diagram: 06/01/18 0650 06/01/18 0650 [facility] Assessment and Plan Iuro-ov-Nvot Encounter Date: Jun 04, 2018 Udpp-hw-Tlro Encounter Time: 08:30 [facility] Plan: Necessary Precautions, Individual/Group Therapy, Admin/Titrate Meds, Educate Patient Tobacco Medications: Not Appropriate Condition Multpiple Antipsychotics Used: Yes Reason For >1 Antipsychotic: risperdal to help with delusions and mood stability. zyprexa as needed for acute chemical restraint. Problems: (1) Schizoaffective disorder, bipolar type Status: Chronic Condition 1. continue treatment. 2. await placement GISSEL MIRZA MD Jun 04, 2018 09:35
[2018-06-04 14:52] VITALS: BP 110/72
[2018-06-04] MEDS: risperiDONE 1 MG TAB PO SCH (19:09)
[2018-06-04] MEDS: diphenhydrAMINE 25 MG CAP PO SCH (19:09)
[2018-06-05 06:07] VITALS: BP 108/60
[2018-06-05] MEDS: LITHIUM CARBONATE 300 MG CAP PO SCH ×2 (07:56→19:02)
[2018-06-05] MEDS: FOLIC ACID 1 MG TAB PO SCH (07:56)
[2018-06-05] MEDS: MULTIVITAMINS TAB PO SCH (07:56)
[2018-06-05] MEDS: CHOLECALCIFEROL 1000 UNIT TAB PO SCH (07:56)
[2018-06-05] MEDS: OMEGA-3 500 MG CAP PO SCH (07:56)
[2018-06-05] MEDS: THIAMINE HCL 100 MG TAB PO SCH (07:56)
--- NOTE | 2018-06-05 09:02 | BHS Progress Note ---
BHS - Subjective Progress Notes Subjective Patient remains calm, polite, continues to be able to go for escorted walks outside of the hospital, mood good, and patient currently denies any other psychiatric symptoms. Sleep and appetite good. Patient wanting to move to snf tomorrow, and [facility] able to transport. Will prepare for transfer tomorrow. Suicidal Ideation: None Homicidal Ideation: None S - Objective Physical Exam Vital Signs Hematology Test 05/01/18 10:34 05/13/18 00:00 05/28/18 05:52 06/01/18 06:50 Free Thyroxine 1.52 ng/dl (0.78-2.19) Free Triiodothyronine 3.8 pg/mL (2.4-4.2) Tuberculin Skin Test 0 mm Thyroid Stimulating Hormone (TSH) 5.84 uIU/ml (0.46-4.68) Red Blood Count 4.80 M/uL (4.00-5.60) Mean Corpuscular Volume 91.7 fL (80.0-96.0) Mean Corpuscular Hemoglobin 31.4 pg (26.0-33.0) Mean Corpuscular Hemoglobin Concent 34.2 g/dL (32.0-36.0) Red Cell Distribution Width 13.5 % (11.5-14.5) Mean Platelet Volume 7.8 fL (7.2-11.1) Neutrophils (%) (Auto) 63.6 % (39.4-72.5) Lymphocytes (%) (Auto) 24.2 % (17.6-49.6) Monocytes (%) (Auto) 9.4 % (4.1-12.4) Eosinophils (%) (Auto) 2.4 % (0.4-6.7) Basophils (%) (Auto) 0.4 % (0.3-1.4) Nucleated RBC Relative Count (auto) 0.0 /100WBC Neutrophils # (Auto) 4.9 K/uL (2.0-7.4) Lymphocytes # (Auto) 1.9 K/uL (1.3-3.6) Monocytes # (Auto) 0.7 K/uL (0.3-1.0) Eosinophils # (Auto) 0.2 K/uL (0.0-0.5) Basophils # (Auto) 0.0 K/uL (0.0-0.1) Nucleated RBC Absolute Count (auto) 0.00 K/uL Sodium Level 139 mmol/L (137-145) Potassium Level 4.3 mmol/L (3.5-5.0) Chloride Level 102 mmol/L (98-107) Carbon Dioxide Level 27 mmol/L (22-30) Blood Urea Nitrogen 21 mg/dl (9-21) Creatinine 1.00 mg/dl (0.66-1.25) Glomerular Filtration Rate Calc > 60.0 Random Glucose 91 mg/dl (75-110) Calcium Level 9.4 mg/dl (8.4-10.2) Total Bilirubin 0.6 mg/dl (0.2-1.3) Aspartate Amino Transf (AST/SGOT) 17 U/L (0-35) Alanine Aminotransferase (ALT/SGPT) 35 U/L (0-56) Alkaline Phosphatase 40 U/L (0-126) Total Protein 6.8 g/dl (6.3-8.2) Albumin 4.1 g/dl (3.5-5.0) [place] Level 0.8 mmol/L (0.6-1.2) Chemistry Test 05/01/18 10:34 05/13/18 00:00 05/28/18 05:52 06/01/18 06:50 Free Thyroxine 1.52 ng/dl (0.78-2.19) Free Triiodothyronine 3.8 pg/mL (2.4-4.2) Tuberculin Skin Test 0 mm Thyroid Stimulating Hormone (TSH) 5.84 uIU/ml (0.46-4.68) White Blood Count 7.6 k/uL (4.5-11.0) Red Blood Count 4.80 M/uL (4.00-5.60) Hemoglobin 15.1 g/dL (14.0-18.0) Hematocrit 44.0 % (42.0-52.0) Mean Corpuscular Volume 91.7 fL (80.0-96.0) Mean Corpuscular Hemoglobin 31.4 pg (26.0-33.0) Mean Corpuscular Hemoglobin Concent 34.2 g/dL (32.0-36.0) Red Cell Distribution Width 13.5 % (11.5-14.5) Platelet Count 261 K/uL (150-450) Mean Platelet Volume 7.8 fL (7.2-11.1) Neutrophils (%) (Auto) 63.6 % (39.4-72.5) Lymphocytes (%) (Auto) 24.2 % (17.6-49.6) Monocytes (%) (Auto) 9.4 % (4.1-12.4) Eosinophils (%) (Auto) 2.4 % (0.4-6.7) Basophils (%) (Auto) 0.4 % (0.3-1.4) Nucleated RBC Relative Count (auto) 0.0 /100WBC Neutrophils # (Auto) 4.9 K/uL (2.0-7.4) Lymphocytes # (Auto) 1.9 K/uL (1.3-3.6) Monocytes # (Auto) 0.7 K/uL (0.3-1.0) Eosinophils # (Auto) 0.2 K/uL (0.0-0.5) Basophils # (Auto) 0.0 K/uL (0.0-0.1) Nucleated RBC Absolute Count (auto) 0.00 K/uL Glomerular Filtration Rate Calc > 60.0 Calcium Level 9.4 mg/dl (8.4-10.2) Total Bilirubin 0.6 mg/dl (0.2-1.3) Aspartate Amino Transf (AST/SGOT) 17 U/L (0-35) Alanine Aminotransferase (ALT/SGPT) 35 U/L (0-56) Alkaline Phosphatase 40 U/L (0-126) Total Protein 6.8 g/dl (6.3-8.2) Albumin 4.1 g/dl (3.5-5.0) [place] Level 0.8 mmol/L (0.6-1.2) Toxicology Test 06/01/18 06:50 [place] Level 0.8 mmol/L (0.6-1.2) Vital Signs Date Time Temp Pulse Resp B/P (MAP) Pulse Ox O2 Delivery O2 Flow Rate FiO2 06/05/18 06:07 98.6 63 15 108/60 (76) 93 Room Air Muscle Strength and Tone: WNL Gait and Station: Steady S Medications Reviewed: Side Effects, Benefits of Medication, Risks Allergies Reviewed: Yes Mental Status Exam General Appearance: Casual, Well Groomed (at times, improved), Good Eye Contact, Cooperative, Polite, Good Interaction; No Unkept, No Tearful, No Psychomotor Agitation, No Psychomotor Retardation, No Bizarre Mannerisms, No Tics Speech: Clear, Spontaneous, Normal Rate, Normal Rhythm, Normal Volume, Normal Tone; No Garbled, No Rambling Mood: No Dysthmic/Depressed (denies depression); Euthymic Affect: Calm, Neutral; No Tearful, No Anxious, No Agitated Thought Process: No Loose Associations (minimal) Thought Content: No Suicidal Ideation, No Homicidal Ideation; Delusions (likely still present, but minimal ), Auditory Halllucinations (patient denies, but likely minimal still present.); No Visual Hallucinations, No Thought Broadcasting; Ideas of Reference; No Obsessions, No Compulsions, No Other Sensorium: Clear Cognition: Alert & Oriented-Person, Alert & Oriented-Place, Alert & Oriented- Time, Rsjcb-Mefcrqdy-Zgpphkjrw Memory: Immediate, Recent, Remote Intelligence: Average Insight Judgment: Poor Result Diagram: 06/01/18 0650 06/01/18 0650 [facility] Assessment and Plan Kjhl-[id number] Encounter Date: Jun 05, 2018 Havr-yy-Dimk Encounter Time: 08:40 [facility] Plan: Necessary Precautions, Individual/Group Therapy, Admin/Titrate Meds, Educate Patient Tobacco Medications: Not Appropriate Condition Multpiple Antipsychotics Used: Yes Reason For >1 Antipsychotic: risperdal to help with delusions and mood stability. zyprexa as needed for acute chemical restraint. Problems: (1) Schizoaffective disorder, bipolar type Status: Chronic Condition 1. will prepare for discharge, and transfer to [facility] tomorrow. GISSEL MIRZA MD Jun 05, 2018 09:02
[2018-06-05 10:24] VITALS: BP 112/66
[2018-06-05] MEDS: risperiDONE 1 MG TAB PO SCH (19:01)
[2018-06-05] MEDS: diphenhydrAMINE 25 MG CAP PO SCH (19:01)
[2018-06-05 21:41] VITALS: BP 122/80
[2018-06-06 06:12] VITALS: BP 97/50
[2018-06-06] MEDS: CHOLECALCIFEROL 1000 UNIT TAB PO SCH (08:07)
[2018-06-06] MEDS: MULTIVITAMINS TAB PO SCH (08:07)
[2018-06-06] MEDS: LITHIUM CARBONATE 300 MG CAP PO SCH (08:07)
[2018-06-06] MEDS: FOLIC ACID 1 MG TAB PO SCH (08:07)
[2018-06-06] MEDS: OMEGA-3 500 MG CAP PO SCH (08:07)
[2018-06-06] MEDS: THIAMINE HCL 100 MG TAB PO SCH (08:07)
[2018-06-06] MEDS ORDERED: DIPH-740 PO (08:44)
[2018-06-06] MEDS ORDERED: OMEG1CAP35 PO (08:45)
[2018-06-06] MEDS ORDERED: LITH600C6 PO ×2 (08:46)
[2018-06-06] MEDS ORDERED: FOLI-68 PO (08:46)
[2018-06-06] MEDS ORDERED: RISP-29 PO (08:47)
[2018-06-06] MEDS ORDERED: THIA100T2 PO (08:48)
[2018-06-06] MEDS ORDERED: MULT-1379 PO (08:48)
[2018-06-06] MEDS ORDERED: CHOL10005 PO (08:49)
--- NOTE | 2018-06-07 10:55 | SCHAAF DISCHARGE ---
DATE OF ADMISSION: April 30, 2018 DATE OF DISCHARGE AND TRANSFER: To [facility] by service was June 06, 2018 ATTENDING PHYSICIAN Prashanth Finn MD The patient was seen at approximately 0800 hours on June 06, 2018 for note concerning this dictation. FINAL DIAGNOSES PER DSM-V 1. Schizoaffective disorder, Bipolar type. 2. History of substance use including cannabis and hallucinogens. The patient known to have a very supportive family. REASON FOR ADMISSION This is a 23-year-old male who was initially admitted to the [facility] in 2016. At that time, the patient had been stabilized and was discharged home. The patient is known to have quickly went off medications at that time and did not receive significant follow up upon discharge. The patient at that time continued to live with his grandmother here in town who overall he gets along very well with. The patient is believed to have used some substances including cannabis and possibly hallucinogens during this time. However, the patient's overall symptomatology of both manic type behaviors, dilutional type behaviors was significant spiritual influence and command hallucinations would continue from time to time. The patient eventually being brought back to the emergency room on April 30, 2018 having significant hallucinations and exacerbation of psychotic illness. The patient was admitted again with spiritual dilutions, command hallucinations. The patient was noted to be without clothing in the community, grandiose at times. The patient on the unit initially refusing care. The patient having command hallucinations at times to even gouge his own eyes out. The patient required multiple chemical restrains early on in his admission. The patient eventually having hearing committing him to the if lesser forms of treatment could not be found. The patient was placed on Allyn and Risperdal. Initially Risperdal Consta was given. This patient was reluctant to take oral meds at times. However, this resolved. The patient becoming open and able to take oral medications. Risperdal Consta was discontinued. The patient noted to be able to go for walks outside the hospital on multiple occasions throughout his stay, escorted by staff with no difficulty. The patient remained very calm, cooperative, and polite throughout the rest of his stay. The patient at no times gave any sign of aggression towards staff. The patient's thoughts of self-harm and overall suicidal ideation resolved. The patient's dilutional type thinking regarding based in yazidi significance declined. The patient was able to discharge to [facility] for continued care. PHYSICAL EXAMINATION Please see emergency room note. Notable for a 23-year-old male in no acute medical distress and overall good health. Vital signs at the time of admission: Temperature 99.1, pulse 89, respiratory rate 16, blood pressure 133/82 and pulse oximetry 95% on room air. Vital signs at the time of discharge: Temperature 98.1, pulse 56 and asymptomatic, respiratory rate 15, blood pressure 97/50 asymptomatic and pulse oximetry 94% on room air. LABORATORY DATA As recently as 06/01/18 CBC was unremarkable. CMP on 06/01/18 unremarkable as well. On 05/28/18 TSH was found to be slightly elevated at 5.84, Free T4 remaining in normal limits of 1.52 and Free T3 3.8. Allyn level on 06/01/18 was 0.8. PTD was negative. At time of admission urinalysis was unremarkable and toxicology screen was negative for drugs of abuse with a nondetectable serum alcohol level. MENTAL STATUS EXAMINATION GENERAL APPEARANCE, BEHAVIOR AND ATTITUDE: This is a very polite, cooperative 23-year-old male, interacting well with this provider, treatment team staff, [facility] staff by phone and mother and grandmother present in room. The patient having no periods of tearfulness, no grossly bizarre mannerisms or tics. The patient asking logical questions of [facility] staff. SPEECH: Largely within normal limits, quiet at times. MOOD: Described as okay. AFFECT: Full and bright. THOUGHT PROCESSES: Logical and goal-directed, the patient indicating desire to enter [facility] living. No gross loose associations or flight of ideas could be detected. THOUGHT CONTENT: The patient denying any further auditory or visual hallucinations. Possible ideas of reference with ongoing spiritual dilutions are likely to have a continued impact, however, they seem minimal at this time. The patient is adamantly denying suicidal or homicidal ideation which can briefly recur at times with patient showing no parasuicidal behaviors. SENSORIUM: Clear. COGNITION: Alert and oriented to person, place, time and situation. MEMORY: Immediate, recent and remote was estimated intact. INTELLIGENCE: Average, based on interview. INSIGHT AND JUDGMENT: Considered grossly intact in the absence of drug or alcohol use, while patient remains on Allyn and Risperdal and appropriate for entrance into [facility] setting. RESULTS OF TESTING Imaging: None. Laboratory data: See above. CONSULTATIONS None. TREATMENT Patient received medications, participated in individual and group therapy. HOSPITAL COURSE Initially the patient's symptom severity was quite significant and patient refusing care. However, the patient's symptoms gradually resolved with the help of Allyn and Risperdal. The patient also has started to take a more active role in his care. The patient becoming very calm and cooperative. The patient's symptoms largely went into remission. CONDITION OF PATIENT ON DISCHARGE Stable and appropriate for entrance into [facility]. Considered a minimal risk to himself or others. DISPOSITION The patient was discharged to enter into [facility] with transfer being aided by staff to [place], [place]. The patient would continue to take Allyn and Risperdal as prescribed. Could lower Risperdal through the help of continued evaluation by provider if sedation was a concern. The patient would abstain from substance use and alcohol. He was given the crisis line should symptoms return. MEDICATIONS AT TIME OF DISCHARGE 1. Vitamin D3 1000 international units daily. 2. Folic acid 1 mg daily. 3. Allyn Carbonate 600 mg every morning and 600 mg at 7 p.m. 4. Risperdal 4 mg at 7 p.m. as well. 5. Benadryl 50 mg at 7 p.m. 6. The patient would remain on Thiamin 100 mg daily as well. 7. [place] 3 fish oil 1000 mg daily. 8. Multivitamin with Minerals daily as well. The risks, benefits and alternatives of the above discharge plan were discussed. Informed consent was given to proceed with the above discharge plan by this competent patient, staff, [facility] accepting patient for care, grandmother and mother present at time of discharge. [facility]
== END 2018-06-06 11:04 | disposition short-term general hospital (02) | DRG 885 ==
LOC: BHS 12:32
PROVIDERS: ADMIT Psychiatry & Neurology Psychiatry; ATTEND Psychiatry & Neurology Psychiatry
DX: F25.0 Schizoaffective disorder, bipolar type (principal); F16.951 Hallucinogen use, unspecified with hallucinogen-induced psychotic disorder with hallucinations; Z91.5 Personal history of self-harm; Z91.14 Patient's other noncompliance with medication regimen; Z81.8 Family history of other mental and behavioral disorders; Z87.898 Personal history of other specified conditions
CPT/HCPCS: 36415; 80178; 82040; 82247; 82310; 82374; 82435; 82565; 82947; 84075; 84132; 84155; 84295; 84439; 84443; 84450; 84460; 84481; 84520; 85025; 86580; 93005; A4216; J1200; J2060; J2794; J3230; J3490; Q0163

== ENCOUNTER → 2018-04-30 | Outpatient (CLI) | payer SELFPAY ==
[2016-09-15 08:38] VITALS: BMI 30.1
[~2018-04-30] MED LIST: BENZ1 PO; CHOL100058 PO; HYDR-4309 PO; LIT300CAP PO; MULT-1379 PO; NO ROUTINE MEDS; OMEG-25 PO; OXYC-865 PO; QUET100T29 PO; RISP-34 PO
== END ==
LOC: AMB 10:19
PROVIDERS: ATTEND Nurse Practitioner
DX: R41.82 Altered mental status, unspecified (principal)
CPT/HCPCS: A0425; A0427

== ENCOUNTER 2018-11-01 13:29 | Inpatient (IN) | payer SELFPAY ==
[2016-09-15 08:38] VITALS: Ht 180.3 cm; Wt 94.3 kg
[~2018-11-01] VITALS: Ht 180.3 cm; Wt 94.3 kg
[~2018-11-01 13:29] MED LIST changes: -ARIP15TA9 PO
--- NOTE | 2018-11-01 13:31 | ER Report ---
History and Physical Time Seen By MD: 13:30 HPI/ROS CHIEF COMPLAINT: Tremulousness, fatigue, weakness HISTORY OF PRESENT ILLNESS: Patient is a 23-year-old male with a history of bipolar schizoaffective disorder on lithium and Abilify with a recent dose alteration of lithium from 1200 mg to 2400 mg approximately one week ago. Patient reports increasing symptoms over the past 2 days. Patient had his lithium level drawn today and was found to have a level is 2.7 prompting the patient to be sent to the emergency department. Patient denies taking other medications, using alcohol or drugs. Patient is alert and oriented at time of evaluation. REVIEW OF SYSTEMS: Constitutional: No fever, no chills. Eyes: No discharge. ENT: No sore throat. Cardiovascular: No chest pain, no palpitations. Respiratory: No cough, no shortness of breath. Gastrointestinal: No abdominal pain, no vomiting. Genitourinary: No hematuria. Musculoskeletal: No back pain. Skin: No rashes. Neurological: Tremulousness, moving all 4 extremities, alert and oriented Allergies: Coded Allergies: No Known Drug Allergies (Unverified , 04/30/18) Home Meds Reported Medications Quetiapine Fumarate (SEROQUEL) 100 Mg Tablet, 100 MG PO Q8H 11/01/18 Aripiprazole (ABILIFY) 15 Mg Tablet, 15 MG PO BID, TAB 11/01/18 Cholecalciferol (Vitamin D3) (VITAMIN D3) 1,000 Unit Tablet, 1000 UNIT PO QDAY, TAB 06/06/18 Thiamine Mononitrate (VITAMIN B-1) 100 Mg Tablet, 100 MG PO QDAY 06/06/18 Multivits,Th W-Fe,Other Min (THERA-M) 1 Each Tablet, 1 EACH PO QDAY 06/06/18 Folic Acid (FOLIC ACID) 1 Mg Tablet, 1 MG PO QDAY, TAB 06/06/18 [place]-3/Dha/Epa/Fish Oil (FISH OIL 500 MG SOFTGEL) 1 Each Capsule, 1000 MG PO QDAY, CAPSULE 06/06/18 Diphenhydramine Hcl (BENADRYL) 25 Mg Capsule, 50 MG PO DIRECTED, CAPSULE TAKE AT 7 PM 06/06/18 Discontinued Reported Medications [place] Carbonate (LITHIUM CARBONATE) 600 Mg Capsule, 600 MG PO DIRECTED, CAPSULE TAKE AT 7 PM 06/06/18 [place] Carbonate (LITHIUM CARBONATE) 600 Mg Capsule, 600 MG PO QAM, CAPSULE 06/06/18 Risperidone (RISPERDAL) 1 Mg Tablet, 4 MG PO DIRECTED TAKE AT 7 PM 06/06/18 Hx Smoking: No Smoking Status: Never Smoker Exposure to Second Hand Smoke?: No Hx Substance Use Disorder: Yes (mushrooms/marijuana/acid/pills) Hx Alcohol Use: Yes Constitutional Vital Sign - Last 24 Hours 11/01/18 11/01/18 11/01/18 11/01/18 13:29 13:34 13:36 13:59 Temp 98.4 Pulse ??? 82 Resp 17 12 B/P (MAP) 143/84 (103) 143/84 Pulse Ox 93 95 O2 Delivery Room Air 11/01/18 11/01/18 14:29 14:30 Pulse 78 Resp 17 B/P (MAP) 120/61 (80) Pulse Ox 94 Physical Exam General Appearance: The patient is alert, has no immediate need for airway protection and no signs of toxicity. Tremulous Eyes: Pupils equal and round no pallor or injection. ENT, Mouth: Mucous membranes are moist. Respiratory: There are no retractions, lungs are clear to auscultation. Cardiovascular: Regular rate and rhythm. Gastrointestinal: Abdomen is soft and non tender, no masses, bowel sounds normal. Neurological: Alert and oriented Skin: Warm and dry, no rashes. Musculoskeletal: Neck is supple non tender. Extremities are nontender, nonswollen and have full range of motion. DIFFERENTIAL DIAGNOSIS: After history and physical exam differential diagnosis was considered for lithium toxicity, illicit drug use, anxiety, medication interaction Medical Decision Making Data Points Result Diagram: 11/01/18 1339 11/02/18 0540 Laboratory Hematology Test 11/01/18 13:39 11/01/18 14:02 11/01/18 14:05 Red Blood Count 5.06 M/uL (4.00-5.60) Mean Corpuscular Volume 90.5 fL (80.0-96.0) Mean Corpuscular Hemoglobin 30.6 pg (26.0-33.0) Mean Corpuscular Hemoglobin Concent 33.8 g/dL (32.0-36.0) Red Cell Distribution Width 13.0 % (11.5-14.5) Mean Platelet Volume 8.0 fL (7.2-11.1) Neutrophils (%) (Auto) 74.9 % (39.4-72.5) Lymphocytes (%) (Auto) 17.5 % (17.6-49.6) Monocytes (%) (Auto) 5.9 % (4.1-12.4) Eosinophils (%) (Auto) 1.4 % (0.4-6.7) Basophils (%) (Auto) 0.3 % (0.3-1.4) Nucleated RBC Relative Count (auto) 0.0 /100WBC Neutrophils # (Auto) 7.8 K/uL (2.0-7.4) Lymphocytes # (Auto) 1.8 K/uL (1.3-3.6) Monocytes # (Auto) 0.6 K/uL (0.3-1.0) Eosinophils # (Auto) 0.1 K/uL (0.0-0.5) Basophils # (Auto) 0.0 K/uL (0.0-0.1) Nucleated RBC Absolute Count (auto) 0.00 K/uL Total Bilirubin 0.5 mg/dl (0.2-1.3) Aspartate Amino Transf (AST/SGOT) 18 U/L (0-35) Alanine Aminotransferase (ALT/SGPT) 33 U/L (0-56) Alkaline Phosphatase 64 U/L (0-126) Ammonia 14 UMOL/L (9-33) Troponin I < 0.012 ng/ml Total Protein 7.5 g/dl (6.3-8.2) Albumin 4.6 g/dl (3.5-5.0) Thyroid Stimulating Hormone (TSH) 5.90 uIU/ml (0.46-4.68) Salicylates Level < 10 mg/L Salicylate Last Dose Date unknown Acetaminophen Level < 10 ug/ml Serum Alcohol < 10 mg/dl Blood Gas Patient Temperature 98.4 DEGREES Venous Blood pH 7.42 (7.31-7.41) Venous Blood Partial Pressure CO2 33 mmHg Venous Blood Partial Pressure O2 56 mmHg Venous Blood HCO3 22 mmol/L Venous Blood Oxygen Saturation 90 % Venous Blood Base Excess -3 mmol/L Carboxyhemoglobin 3.3 % (< 5.0) Oxygen Liters/Minute Room air Urine Color Yellow Urine Clarity Clear Urine pH 7.0 pH (4.8-9.5) Urine Specific [place] 1.015 Urine Protein Negative mg/dL (NEGATIVE) Urine Glucose (UA) Negative mg/dL (NEGATIVE) Urine Ketones Negative mg/dL (NEGATIVE) Urine Blood Negative (NEGATIVE) Urine Nitrite Negative (NEGATIVE) Urine Bilirubin Negative (NEGATIVE) Urine Urobilinogen Negative mg/dL (0.2-1.9) Urine Leukocyte Esterase Negative (NEGATIVE) Urine RBC <1 /HPF (0-2/HPF) Urine WBC 1 /HPF (0-5/HPF) Urine Squamous Epithelial Cells None /LPF (</=FEW) Urine Bacteria Negative /HPF (NONE-FEW) Urine Mucus None /HPF (NONE-FEW) Urine Opiates Screen Negative Urine Barbiturates Screen Negative Ur Tricyclic Antidepressants Screen Negative Urine Phencyclidine Screen Negative Urine Amphetamines Screen Negative Urine Benzodiazepines Screen Negative Urine Cocaine Screen Negative Urine Cannabinoids Screen Negative Chemistry Test 11/01/18 13:39 11/01/18 14:02 11/01/18 14:05 White Blood Count 10.4 k/uL (4.5-11.0) Red Blood Count 5.06 M/uL (4.00-5.60) Hemoglobin 15.5 g/dL (14.0-18.0) Hematocrit 45.8 % (42.0-52.0) Mean Corpuscular Volume 90.5 fL (80.0-96.0) Mean Corpuscular Hemoglobin 30.6 pg (26.0-33.0) Mean Corpuscular Hemoglobin Concent 33.8 g/dL (32.0-36.0) Red Cell Distribution Width 13.0 % (11.5-14.5) Platelet Count 286 K/uL (150-450) Mean Platelet Volume 8.0 fL (7.2-11.1) Neutrophils (%) (Auto) 74.9 % (39.4-72.5) Lymphocytes (%) (Auto) 17.5 % (17.6-49.6) Monocytes (%) (Auto) 5.9 % (4.1-12.4) Eosinophils (%) (Auto) 1.4 % (0.4-6.7) Basophils (%) (Auto) 0.3 % (0.3-1.4) Nucleated RBC Relative Count (auto) 0.0 /100WBC Neutrophils # (Auto) 7.8 K/uL (2.0-7.4) Lymphocytes # (Auto) 1.8 K/uL (1.3-3.6) Monocytes # (Auto) 0.6 K/uL (0.3-1.0) Eosinophils # (Auto) 0.1 K/uL (0.0-0.5) Basophils # (Auto) 0.0 K/uL (0.0-0.1) Nucleated RBC Absolute Count (auto) 0.00 K/uL Total Bilirubin 0.5 mg/dl (0.2-1.3) Aspartate Amino Transf (AST/SGOT) 18 U/L (0-35) Alanine Aminotransferase (ALT/SGPT) 33 U/L (0-56) Alkaline Phosphatase 64 U/L (0-126) Ammonia 14 UMOL/L (9-33) Troponin I < 0.012 ng/ml Total Protein 7.5 g/dl (6.3-8.2) Albumin 4.6 g/dl (3.5-5.0) Thyroid Stimulating Hormone (TSH) 5.90 uIU/ml (0.46-4.68) Salicylates Level < 10 mg/L Salicylate Last Dose Date unknown Acetaminophen Level < 10 ug/ml Serum Alcohol < 10 mg/dl Blood Gas Patient Temperature 98.4 DEGREES Venous Blood pH 7.42 (7.31-7.41) Venous Blood Partial Pressure CO2 33 mmHg Venous Blood Partial Pressure O2 56 mmHg Venous Blood HCO3 22 mmol/L Venous Blood Oxygen Saturation 90 % Venous Blood Base Excess -3 mmol/L Carboxyhemoglobin 3.3 % (< 5.0) Oxygen Liters/Minute Room air Urine Color Yellow Urine Clarity Clear Urine pH 7.0 pH (4.8-9.5) Urine Specific [place] 1.015 Urine Protein Negative mg/dL (NEGATIVE) Urine Glucose (UA) Negative mg/dL (NEGATIVE) Urine Ketones Negative mg/dL (NEGATIVE) Urine Blood Negative (NEGATIVE) Urine Nitrite Negative (NEGATIVE) Urine Bilirubin Negative (NEGATIVE) Urine Urobilinogen Negative mg/dL (0.2-1.9) Urine Leukocyte Esterase Negative (NEGATIVE) Urine RBC <1 /HPF (0-2/HPF) Urine WBC 1 /HPF (0-5/HPF) Urine Squamous Epithelial Cells None /LPF (</=FEW) Urine Bacteria Negative /HPF (NONE-FEW) Urine Mucus None /HPF (NONE-FEW) Urine Opiates Screen Negative Urine Barbiturates Screen Negative Ur Tricyclic Antidepressants Screen Negative Urine Phencyclidine Screen Negative Urine Amphetamines Screen Negative Urine Benzodiazepines Screen Negative Urine Cocaine Screen Negative Urine Cannabinoids Screen Negative Toxicology Test 11/01/18 13:39 11/01/18 14:05 Salicylates Level < 10 mg/L Salicylate Last Dose Date unknown Acetaminophen Level < 10 ug/ml Serum Alcohol < 10 mg/dl Urine Opiates Screen Negative Urine Barbiturates Screen Negative Ur Tricyclic Antidepressants Screen Negative Urine Phencyclidine Screen Negative Urine Amphetamines Screen Negative Urine Benzodiazepines Screen Negative Urine Cocaine Screen Negative Urine Cannabinoids Screen Negative Urinalysis Test 11/01/18 14:05 Urine Color Yellow Urine Clarity Clear Urine pH 7.0 pH (4.8-9.5) Urine Specific [place] 1.015 Urine Protein Negative mg/dL (NEGATIVE) Urine Glucose (UA) Negative mg/dL (NEGATIVE) Urine Ketones Negative mg/dL (NEGATIVE) Urine Blood Negative (NEGATIVE) Urine Nitrite Negative (NEGATIVE) Urine Bilirubin Negative (NEGATIVE) Urine Urobilinogen Negative mg/dL (0.2-1.9) Urine Leukocyte Esterase Negative (NEGATIVE) Urine RBC <1 /HPF (0-2/HPF) Urine WBC 1 /HPF (0-5/HPF) Urine Squamous Epithelial Cells None /LPF (</=FEW) Urine Bacteria Negative /HPF (NONE-FEW) Urine Mucus None /HPF (NONE-FEW) ED Course/Re-evaluation ED Course Patient is a 23-year-old male here with complaints of tremulousness, GI upset after being increased on his lithium approximately one week ago. Patient had outpatient lab draw and was found to have a severe elevation and lithium levels of 2.7. I discussed the patient with poison control center and they recommended increasing IV fluids, monitoring lithium levels and rechecking CMP. Patient remained hemodynamically stable throughout course. I discussed the patient with hospitalist on-call and patient was admitted for follow-up labs, observation. Decision to Disposition Date: Nov 01, 2018 Decision to Disposition Time: 14:55 Depart Departure Latest Vital Signs Vital Signs Date Time Temp Pulse Resp B/P (MAP) Pulse Ox O2 Delivery O2 Flow Rate FiO2 11/01/18 14:30 120/61 (80) 11/01/18 14:29 78 17 94 11/01/18 13:36 98.4 Room Air Impression: Primary Impression: Depression Additional Impression: [place] toxicity Condition: Improved Disposition: Admitted from ER Problem Qualifiers SHAREE MCGHEE DO Nov 01, 2018 13:31
[2018-11-01] MEDS ORDERED: ARIP15TA9 PO (13:41)
[2018-11-01] MEDS ORDERED: QUET100T29 PO (13:41)
[2018-11-01] MEDS ORDERED: NS(*) 0.9% 1000 ML BAG 1,000 ML IV ONE (13:42)
[2018-11-01 13:53] LABS: PLATELET COUNT, AUTOMATED 286 K/uL (150-450)
--- NOTE | 2018-11-01 13:58 | EKG ---
FACILITY: [facility] [place]IENT NAME: NIMA ADAIR : [id number] MR: [id number] V: [id number] EXAM DATE: ORDERING PHYSICIAN: SHAREE MCGHEE TECHNOLOGIST: SHAR Test Reason : Blood Pressure : / mmHG Vent. Rate : 080 BPM Atrial Rate : 080 BPM P-R Int : 182 ms QRS Dur : 098 ms QT Int : 390 ms P-R-T Axes : 036 035 005 degrees QTc Int : 449 ms Normal sinus rhythm Normal ECG When compared with ECG of 03-MAY-2018 21:40, No significant change was found Confirmed by CHRIS OROZCO ([id number]) on 11/01/2018 10:55:20 PM Referred By: LITZY Confirmed By:CHRIS OROZCO
[2018-11-01 15:00] VITALS: BP 115/66
--- NOTE | 2018-11-01 16:13 | History & Physical ---
History of Present Illness Chief Complaint Tremors History of Present Illness This patient presented to the emergency room complaining of tremors and weakness. His dose of lithium was increased approximately one week ago. He has been having increasing tremors since that time. History Problems: (1) Bipolar disorder, current episode manic severe with psychotic features Status: Acute Home Meds Reported Medications Quetiapine Fumarate (SEROQUEL) 100 Mg Tablet, 100 MG PO Q8H 11/01/18 Aripiprazole (ABILIFY) 15 Mg Tablet, 15 MG PO BID, TAB 11/01/18 Cholecalciferol (Vitamin D3) (VITAMIN D3) 1,000 Unit Tablet, 1000 UNIT PO QDAY, TAB 06/06/18 Thiamine Mononitrate (VITAMIN B-1) 100 Mg Tablet, 100 MG PO QDAY 06/06/18 Multivits, W-,Other Min (THERA-M) 1 Each Tablet, 1 EACH PO QDAY 06/06/18 [place] Carbonate (LITHIUM CARBONATE) 600 Mg Capsule, 600 MG PO DIRECTED, CAPSULE TAKE AT 7 PM 06/06/18 [place] Carbonate (LITHIUM CARBONATE) 600 Mg Capsule, 600 MG PO QAM, CAPSULE 06/06/18 Folic Acid (FOLIC ACID) 1 Mg Tablet, 1 MG PO QDAY, TAB 06/06/18 [place]-3/Dha/Epa/Fish Oil (FISH OIL 500 MG SOFTGEL) 1 Each Capsule, 1000 MG PO QDAY, CAPSULE 06/06/18 Diphenhydramine Hcl (BENADRYL) 25 Mg Capsule, 50 MG PO DIRECTED, CAPSULE TAKE AT 7 PM 06/06/18 Discontinued Reported Medications Risperidone (RISPERDAL) 1 Mg Tablet, 4 MG PO DIRECTED TAKE AT 7 PM 06/06/18 Allergies: Coded Allergies: No Known Drug Allergies (Unverified , 04/30/18) Patient History: FH: depression MOTHER FHx: bipolar disorder cousin FHx: schizophrenia Great Uncle Hx Smoking: No Smoking Status: Never Smoker Exposure to Second Hand Smoke?: No Caffeine Intake: Coffee Caffeine/Cups Per Day: 1 serving Hx Alcohol Use: Yes Hx Substance Use Disorder: Yes Social Drug Use: Currently Social Drugs: Marijuana, Prescription Drugs, Amphetamines, Mushrooms, Crack, Cocaine, LSD Review of Systems All Systems Reviewed/Normal: Yes, Except as Noted Neurological: Other (tremors) Exam Vital Signs Vital Signs Date Time Temp Pulse Resp B/P (MAP) Pulse Ox O2 Delivery O2 Flow Rate FiO2 11/01/18 15:00 115/66 (82) 11/01/18 14:59 70 26 93 11/01/18 13:36 98.4 Room Air Neuro: No Gross deficits Eyes: PERRLA Cardiovascular: Regular Rate and Rhythm Respiratory: Clear to Auscultation GI: Abd Soft and Non-Tender Extremities: No Edema Integumentary: No Cyanosis Medical Decision Making Data Points Result Diagram: 11/01/18 1339 11/01/189 Assessment and Plan Problems: (1) [place] toxicity Assessment & Plan: He did present with worsening tremors and weakness that developed after an increase in his lithium dose. His level is elevated on admission. He has been started on IV fluids. We will perform serial lithium levels until he is asymptomatic. (2) Bipolar disorder, current episode manic severe with psychotic features Status: Acute Assessment & Plan: He is on chronic treatment with Abilify, Seroquel, and lithium. The lithium has been discontinued. Venous Thromboembolism Antithrombotics Is Pt On Any Antithrombotics?: No Exam Sepsis Risk: No Definite Risk CHRIS OROZCO DO Nov 01, 2018 16:13
[2018-11-01] MEDS: QUEtiapine FUM 100 MG TAB PO SCH (17:05)
[2018-11-01 19:10] VITALS: BP 113/57
[2018-11-01] MEDS: ARIPiprazole 10 MG TAB PO SCH (20:51)
[2018-11-01] MEDS: NS(*) 0.9% 1000 ML BAG 1,000 ML IV PRN (22:28)
[2018-11-02 00:15] VITALS: BP 125/69
[2018-11-02] MEDS: QUEtiapine FUM 100 MG TAB PO SCH ×2 (00:15→08:49)
[2018-11-02 03:30] VITALS: BP 121/70
[2018-11-02] MEDS: NS(*) 0.9% 1000 ML BAG 1,000 ML IV PRN (03:43)
[2018-11-02 06:55] VITALS: BP 124/75
[2018-11-02] MEDS: ARIPiprazole 10 MG TAB PO SCH (08:48)
[2018-11-02] MEDS ORDERED: THIAMINE HCL 100 MG TAB PO SCH (09:00)
[2018-11-02] MEDS ORDERED: FOLIC ACID 1 MG TAB PO SCH (09:00)
--- NOTE | 2018-11-02 10:10 | Hospitalist Depart ---
Discharge Summary Reason for Hosp/Final Diag: (1) [place] toxicity Status: Acute Hospital Course & Plan: He did present with worsening tremors and weakness that developed after an inadvertent increase in his lithium dose. He was prescribed 600mg PO BID and was previously taking two 300mg tabs BID, but a new prescriptio n was for 600mg tabs that he was still taking two tabs BID. His level was elevated to 2.2 on admission. He was started on IV fluids and monitored. His symptoms continually improved. He was able to ambulate in his room without problems. He was eating and drinking normally. He still felt slightly tremulous "like I did before". He reports having a slight tremor since starting the lithium, even when his levels were therapeutic. We discussed staying on all his other medications, but stopping the lithium until he had the chance to talk with his counselor and psychiatrist. He and his family were comfortable with this. He will see his counselor next week and has an appointment with his psychiatrist on November 13. (2) Bipolar disorder, current episode manic severe with psychotic features Status: Acute Hospital Course & Plan: He was on chronic treatment with Abilify, Seroquel, and lithium. The lithium has been discontinued. (3) Elevated TSH Status: Acute Hospital Course & Plan: His TSH is slightly above normal at 5.9. This could reflect early hypothyroidism potentially related to the lithium therapy. He will need to have this followed up in the next 3-4 weeks. He may need to start replacement therapy. Departure Weight (Pounds): 208 Result Diagram: 11/01/18 1339 11/02/18 0540 Item Value Date Time Serum Alcohol < 10 mg/dl 11/01/18 1339 [place] Level 2.2 mmol/L *H 11/01/18 1339 Acetaminophen Level < 10 ug/ml 11/01/18 1339 Salicylates Level < 10 mg/L 11/01/18 1339 Urine Opiates Screen Negative 11/01/18 1405 Urine Barbiturates Screen Negative 11/01/18 1405 Ur Tricyclic Antidepressants Screen Negative 11/01/18 1405 Urine Phencyclidine Screen Negative 11/01/18 1405 Urine Amphetamines Screen Negative 11/01/18 1405 Urine Benzodiazepines Screen Negative 11/01/18 1405 Urine Cocaine Screen Negative 11/01/18 1405 Urine Cannabinoids Screen Negative 11/01/18 1405 [place] Level 1.8 mmol/L *H 11/01/18 1754 [place] Level 1.1 mmol/L 11/02/18 0540 Thyroid Stimulating Hormone (TSH) 5.90 uIU/ml H 11/01/18 1339 Albumin 4.6 g/dl 11/01/18 1339 Total Protein 7.5 g/dl 11/01/18 1339 Troponin I < 0.012 ng/ml 11/01/18 1339 Ammonia 14 UMOL/L 11/01/18 1339 Alkaline Phosphatase 64 U/L 11/01/18 1339 Alanine Aminotransferase (ALT/SGPT) 33 U/L 11/01/18 1339 Aspartate Amino Transf (AST/SGOT) 18 U/L 11/01/18 1339 Total Bilirubin 0.5 mg/dl 11/01/18 1339 Calcium Level 10.0 mg/dl 11/01/18 1339 Random Glucose 103 mg/dl 11/01/18 1339 Glomerular Filtration Rate Calc > 60.0 11/01/18 1339 Creatinine 1.10 mg/dl 11/01/18 1339 Blood Urea Nitrogen 22 mg/dl H 11/01/18 1339 Carbon Dioxide Level 23 mmol/L 11/01/18 1339 Chloride Level 110 mmol/L H 11/01/18 1339 Potassium Level 3.8 mmol/L 11/01/18 1339 Sodium Level 138 mmol/L 11/01/18 1339 Venous Blood Base Excess -3 mmol/L 11/01/18 1402 Venous Blood HCO3 22 mmol/L 11/01/18 1402 Venous Blood Oxygen Saturation 90 % 11/01/18 1402 Venous Blood Partial Pressure O2 56 mmHg 11/01/18 1402 Venous Blood Partial Pressure CO2 33 mmHg 11/01/18 1402 Venous Blood pH 7.42 H 11/01/18 1402 Blood Gas Patient Temperature 98.4 DEGREES 11/01/18 1402 Carboxyhemoglobin 3.3 % 11/01/18 1402 Oxygen Liters/Minute Room air 11/01/18 1402 Condition: Improved Discharge: Home Follow-Up Labs: Other (TSH in 3-4 weeks.) Time Spent: > 30 min Discharge Instructions Home Meds Reported Medications Quetiapine Fumarate (SEROQUEL) 100 Mg Tablet, 100 MG PO Q8H 11/01/18 Aripiprazole (ABILIFY) 15 Mg Tablet, 15 MG PO BID, TAB 11/01/18 Cholecalciferol (Vitamin D3) (VITAMIN D3) 1,000 Unit Tablet, 1000 UNIT PO QDAY, TAB 06/06/18 Thiamine Mononitrate (VITAMIN B-1) 100 Mg Tablet, 100 MG PO QDAY 06/06/18 Multivits,Th W-Fe,Other Min (THERA-M) 1 Each Tablet, 1 EACH PO QDAY 06/06/18 Folic Acid (FOLIC ACID) 1 Mg Tablet, 1 MG PO QDAY, TAB 06/06/18 [place]-3/Dha/Epa/Fish Oil (FISH OIL 500 MG SOFTGEL) 1 Each Capsule, 1000 MG PO QDAY, CAPSULE 06/06/18 Diphenhydramine Hcl (BENADRYL) 25 Mg Capsule, 50 MG PO DIRECTED, CAPSULE TAKE AT 7 PM 06/06/18 Discontinued Reported Medications [place] Carbonate (LITHIUM CARBONATE) 600 Mg Capsule, 600 MG PO DIRECTED, CAPSULE TAKE AT 7 PM 06/06/18 [place] Carbonate (LITHIUM CARBONATE) 600 Mg Capsule, 600 MG PO QAM, CAPSULE 06/06/18 Risperidone (RISPERDAL) 1 Mg Tablet, 4 MG PO DIRECTED TAKE AT 7 PM 06/06/18 Diet: Regular Activity: As Tolerated Special Instructions: Follow up with [facility] counselor and psychiatrist as planned over the next two weeks. Return to [facility] if any problems. Venous Thromboembolism Antithrombotics Is Pt On Any Antithrombotics?: No NOEL ALVAREZ MD Nov 02, 2018 10:10
[2018-11-03] MEDS ORDERED: INFLUENZA VIRUS VAC 0.5ML SYR IM ONLY ONE (09:00)
== END 2018-11-02 10:45 | disposition home or self-care (01) | DRG 918 ==
LOC: ER 13:31 → MED 14:56
PROVIDERS: ADMIT Family Medicine; ATTEND Family Medicine
DX: T43.591A Poisoning by other antipsychotics and neuroleptics, accidental (unintentional), initial encounter (principal); F31.2 Bipolar disorder, current episode manic severe with psychotic features; R94.6 Abnormal results of thyroid function studies
CPT/HCPCS: 36415; 80178; 80305; 80320; 80329; 81001; 82040; 82140; 82247; 82310; 82330; 82374; 82375; 82435; 82565; 82803; 82947; 84075; 84132; 84155; 84295; 84443; 84450; 84460; 84484; 84520; 85025; 93005; 96360; 99284; J7030

== ENCOUNTER → 2018-11-01 | Outpatient (CLI) | payer SELFPAY ==
[2016-09-15 08:38] VITALS: BMI 30.1
[~2018-11-01] MED LIST changes: +ARIP15TA9 PO; +CHOL10005 PO; +DIPH-740 PO; +FOLI-68 PO; -HYDR-4309 PO; +HYDR-653 PO; +LITH600C6 PO; +OMEG1CAP35 PO; +RISP-29 PO; +THIA100T2 PO
== END ==
LOC: LAB 11:56
PROVIDERS: ATTEND Psychiatry & Neurology Psychiatry
DX: Z51.81 Encounter for therapeutic drug level monitoring (principal); Z79.899 Other long term (current) drug therapy; F25.0 Schizoaffective disorder, bipolar type; F32.89 Other specified depressive episodes
CPT/HCPCS: 36415; 80178